=== PATIENT | female | born 1980 | race Caucasian/White ===

== ENCOUNTER 2016-08-17 19:22 | Emergency (ER) | payer OTHER ==
[~2016-08-17] VITALS: Ht 165.1 cm; Wt 46.6 kg
[~2016-08-17 19:22] MED LIST: CARI350T28 PO; METH10TA4 PO
[2016-08-17 19:29] VITALS: TEMP 36.9; Ht 165.1 cm; Wt 46.6 kg
[2016-08-17] MEDS ORDERED: ONDANSETRON INJ 2 MG/ML 2 ML VIAL IV STA (19:53)
[2016-08-17] MEDS ORDERED: SODIUM CHLORIDE 0.9% 1000ML 1,000 ML IV STA (19:53)
[2016-08-17] MEDS ORDERED: HYDROmorphone INJ 0.5 MG/0.5 ML SYR IV STA (19:53)
[2016-08-17] MEDS ORDERED: OMEP40CA PO (19:59)
[2016-08-17] MEDS ORDERED: ONDA4TAB46 PO (19:59)
[2016-08-17] MEDS ORDERED: DICYCLOMINE PO (19:59)
[2016-08-17] MEDS ORDERED: OPTIRAY 320 IV PRN (20:00)
[2016-08-17 20:15] LABS: HEMATOCRIT 38.4 % (37-47); MEAN CELL VOLUME 82.9 fL (80-100); MEAN CORPUSCULAR HEMOGLOBIN 27.9 pg (25-34); MEAN CORPUSCULAR HGB CONC 33.6 g/dl (32-36); MEAN PLATELET VOLUME 8.7 fL (7.4-10.4); PLATELET COUNT 319 K/uL (130-400); RED BLOOD COUNT 4.63 M/uL (4.2-5.4); WHITE BLOOD COUNT 5.88 K/uL (4.8-10.8)
[2016-08-17 20:31] LABS: BASO % 0.3 %; BASO ABS # 0.02 K/uL (0-0.2); COMPLETE YES; EOS % 0.7 %; LYMPH % 54.9 %; LYMPH ABS # 3.23 K/uL (1.2-3.4); MONO % 4.9 %; NEUT % 39.2 %
[2016-08-17 20:32] LABS: BUN/CREATININE RATIO 14.6 (10-20); CALCIUM 8.6 mg/dl (8.5-10.1); CREATININE 0.84 mg/dl (0.60-1.20); POTASSIUM 3.6 mmol/L (3.5-5.1)
[2016-08-17 22:00] LABS: MANUAL MICROSCOPIC REQUIRED? NO; REVIEW REQ? NO; URINE APPEARANCE CLOUDY (CLEAR); URINE BILIRUBIN NEG (NEG); URINE COLOR YELLOW; URINE EPITHELIAL CELL AUTO >30 /lpf (0-5); URINE NITRITE NEG (NEG); URINE PH 5.5 (4.5-7.5); URINE SPECIFIC GRAVITY 1.001 (1.000-1.030); UROBILINOGEN NEG (NEG); ZZUR CULT IF INDIC CLEAN CATCH YES
--- NOTE | 2016-08-17 22:55 | DIAGNOSTIC IMAGING REPORT ---
ABDOMEN AND PELVIS CT WITH IV AND ORAL CONTRAST CT DOSE: 276.36 mGy.cm HISTORY: Pain left abd pain TECHNIQUE: Multiaxial CT images of the abdomen and pelvis were performed following the use of intravenous and oral contrast. COMPARISON STUDY: 08/25/2015 FINDINGS: Lung bases are clear. Small meningioma posterior right hepatic lobe. Liver is otherwise uniform. Spleen is unremarkable. Kidneys enhance uniformly. There is a 1 cm cyst lower pole left kidney. There is no evidence for hydronephrosis. Small bowel pattern is nonobstructive. There are findings of mild generalized colonic distention. There is a suggestive of a nonobstructive colonic ileus. Bladder is midline. There are no contained calcifications. The appendix is Normal IMPRESSION: 1. Mild generalized colonic adynamic ileus. 2. No true obstructive changes. 3. Findings consistent with a prior gastric bypass procedure Electronically signed by: Aries Flores M.D. 08/17/2016 10:53 PM
[2016-08-17 23:15] VITALS: BP 122/73; PULSE 83; O2SAT 99
[2016-08-17] MEDS ORDERED: NORCO 5/325MG HOME PACK PO ONE (23:30)
--- NOTE | 2016-08-18 02:50 | EMERGENCY ROOM VISIT NOTE ---
History Report prepared by Judith: Dagoberto Rodney Under the Supervision of: Dr. Silvano Gonzalez M.D. First contact with patient: 19:43 Chief Complaint: ABDOMINAL PAIN Stated Complaint: SEVERE STOMACH PAIN History of Present Illness The patient is a 35 year old female who presents to the Emergency Room with complaints of intermittent abdominal pain beginning 3 months ago. She rates her pain as a 9/10 in severity. She states that her current episode began 13 hours ago, and has been constant. The patient has associated diarrhea and nausea. 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 She has a history of GERD, and IBS. The patient notes that her stress and anxiety have been very high over the past few months. Pt denies LOC, headache, fevers, chills, diaphoresis, visual changes, neck pain, chest pain, breathing difficulties, vomiting, back pain, melena, hematochezia, urinary symptoms, numbness, weakness, lymphadenopathy, rash, or other complaints. She notes that she experienced some vaginal bleeding in the past few months which is abnormal for her, but states that it was not correlated with her other symptoms. Source of History: patient Onset: 3 months ago Position: abdomen Timing: intermittent Associated Symptoms: + diarrhea, + nausea, No vomiting Review of Systems See HPI for pertinent positives and negatives. A total of ten systems were reviewed and were otherwise negative. Past Medical & Surgical Medical Problems: (1) Abnormal finding on EKG (2) Anxiety (3) Anxiety State Nos (4) Asthma (5) Asthma, Unspecified (6) Cervical strain (7) Chest pain (8) Dental caries (9) Dentalgia (10) Depression (11) Elevated LFTs (12) Esophageal Reflux (13) Hyperthyroidism (14) Pain due to dental caries (15) Pain due to dental caries (16) Pain, dental (17) Pain, dental (18) Rib contusion Family History Cancer FH: depression Heart disease Hypertension Social History Smoking Status: Current Every Day Smoker Alcohol Use: none Drug Use: none Marital Status: in relationship Housing Status: lives with family Occupation Status: employed Current/Historical Medications Scheduled Medroxyprogesterone Acetate (Medroxyprogesterone Aceta), 150 MG IM Q3 MONTHS Methylphenidate (Ritalin), 10 MG PO DAILY Omeprazole (Prilosec), 40 MG PO DAILY [Dicyclomine], 1 TAB PO DAILY Scheduled PRN Carisoprodol (Soma), 350 MG PO TID PRN for Muscle Spasm Ondansetron Hcl (Zofran), 4 MG PO Q8 PRN for Nausea Allergies Coded Allergies: Grass (Verified Allergy, Mild, SNEEZE AND ITCHY EYES, 08/17/16) Ketorolac Tromethamine (Verified Allergy, Unknown, asthma flare, 08/17/16) Nitrofurantoin (Verified Allergy, Unknown, VOMITING, 08/17/16) Penicillins (Verified Allergy, Unknown, RXN CHILD, 08/17/16) Physical Exam Vital Signs Date Time Temp Pulse Resp B/P Pulse Ox O2 Delivery O2 Flow Rate FiO2 08/17/16 23:15 83 16 122/73 99 Room Air 08/17/16 19:29 36.9 112 18 111/75 97 Room Air Physical Exam GENERAL: Awake, alert, well-appearing, in no distress HENT: Normocephalic, atraumatic. Oropharynx unremarkable. EYES: Normal conjunctiva. Sclera non-icteric. NECK: Supple. No nuchal rigidity. FROM. No JVD. RESPIRATORY: Clear to auscultation. CARDIAC: Regular rate, normal rhythm. Extremities warm and well perfused. Pulses equal. ABDOMEN: Soft, non-distended. Left sided tenderness to palpation. No rebound or guarding. No masses. RECTAL: Deferred. MUSCULOSKELETAL: Chest examination reveals no tenderness. The back is symmetrical on inspection without obvious abnormality. There is no CVA tenderness to palpation. No joint edema. LOWER EXTREMITIES: Calves are equal size bilaterally and non-tender. No edema. No discoloration. NEURO: Normal sensorium. No sensory or motor deficits noted. SKIN: No rash or jaundice noted. Medical Decision & Procedures ER Provider Diagnostic Interpretation: CT: Radiology results as stated below per my review and radiologist interpretation ABDOMEN AND PELVIS CT WITH IV AND ORAL CONTRAST FINDINGS: Lung bases are clear. Small meningioma posterior right hepatic lobe. Liver is otherwise uniform. Spleen is unremarkable. Kidneys enhance uniformly. There is a 1 cm cyst lower pole left kidney. There is no evidence for hydronephrosis. Small bowel pattern is nonobstructive. There are findings of mild generalized colonic distention. There is a suggestive of a nonobstructive colonic ileus. Bladder is midline. There are no contained calcifications. The appendix is Normal IMPRESSION: 1. Mild generalized colonic adynamic ileus. 2. No true obstructive changes. 3. Findings consistent with a prior gastric bypass procedure Electronically signed by: Aries Flores M.D. Laboratory Results 08/17/16 20:05 Red Blood Count 4.63, Mean Corpuscular Volume 82.9, Mean Corpuscular Hemoglobin 27.9, Mean Corpuscular Hemoglobin Concent 33.6, Mean Platelet Volume 8.7, Neutrophils (%) (Auto) 39.2, Lymphocytes (%) (Auto) 54.9, Monocytes (%) (Auto) 4.9, Eosinophils (%) (Auto) 0.7, Basophils (%) (Auto) 0.3, Neutrophils # (Auto) 2.30, Lymphocytes # (Auto) 3.23, Monocytes # (Auto) 0.29, Eosinophils # (Auto) 0.04, Basophils # (Auto) 0.02 08/17/16 20:05 Test 08/17/16 20:05 08/17/16 21:41 White Blood Count 5.88 K/uL (4.8-10.8) Red Blood Count 4.63 M/uL (4.2-5.4) Hemoglobin 12.9 g/dL (12.0-16.0) Hematocrit 38.4 % (37-47) Mean Corpuscular Volume 82.9 fL (80-100) Mean Corpuscular Hemoglobin 27.9 pg (25-34) Mean Corpuscular Hemoglobin Concent 33.6 g/dl (32-36) Platelet Count 319 K/uL (130-400) Mean Platelet Volume 8.7 fL (7.4-10.4) Neutrophils (%) (Auto) 39.2 % Lymphocytes (%) (Auto) 54.9 % Monocytes (%) (Auto) 4.9 % Eosinophils (%) (Auto) 0.7 % Basophils (%) (Auto) 0.3 % Neutrophils # (Auto) 2.30 K/uL (1.4-6.5) Lymphocytes # (Auto) 3.23 K/uL (1.2-3.4) Monocytes # (Auto) 0.29 K/uL (0.11-0.59) Eosinophils # (Auto) 0.04 K/uL (0-0.5) Basophils # (Auto) 0.02 K/uL (0-0.2) RDW Standard Deviation 44.6 fL (36.4-46.3) RDW Coefficient of Variation 14.6 % (11.5-14.5) Immature Granulocyte % (Auto) 0.0 % Immature Granulocyte # (Auto) 0.00 K/uL (0.00-0.02) Anion Gap 9.0 mmol/L (3-11) Est Creatinine Clear Calc Drug Dose 70.1 ml/min Estimated GFR () 105.8 Estimated GFR (Non- 91.3 BUN/Creatinine Ratio 14.6 (10-20) Calcium Level 8.6 mg/dl (8.5-10.1) Total Bilirubin 0.9 mg/dl (0.2-1) Direct Bilirubin 0.2 mg/dl (0-0.2) Aspartate Amino Transf (AST/SGOT) 19 U/L (15-37) Alanine Aminotransferase (ALT/SGPT) 25 U/L (12-78) Alkaline Phosphatase 104 U/L (45-117) Total Protein 7.5 gm/dl (6.4-8.2) Albumin 4.2 gm/dl (3.4-5.0) Lipase 233 U/L (73-393) Urine Color YELLOW Urine Appearance CLOUDY (CLEAR) Urine pH 5.5 (4.5-7.5) Urine Specific [place] 1.001 (1.000-1.030) Urine Protein NEG (NEG) Urine Glucose (UA) NEG (NEG) Urine Ketones NEG (NEG) Urine Occult Blood NEG (NEG) Urine Nitrite NEG (NEG) Urine Bilirubin NEG (NEG) Urine Urobilinogen NEG (NEG) Urine Leukocyte Esterase SMALL (NEG) Urine WBC (Auto) 10-30 /hpf (0-5) Urine RBC (Auto) 0-4 /hpf (0-4) Urine Hyaline Casts (Auto) 0 /lpf (0-5) Urine Epithelial Cells (Auto) >30 /lpf (0-5) Urine Bacteria (Auto) 1+ (NEG) Urine Test NEG (NEG) Laboratory results reviewed by me Medications Administered Medications (Trade) Dose Ordered Sig/Concepcion Route Start Time Stop Time Status Last Admin Dose Admin Sodium Chloride (Nss 1000ml) 1,000 ml @ 999 mls/hr Q1H1M STAT IV 08/17/16 19:53 08/17/16 20:53 DC 08/17/16 20:20 999 MLS/HR Ondansetron HCl (Zofran Inj) 4 mg NOW STAT IV 08/17/16 19:53 08/17/16 19:54 DC 08/17/16 20:19 4 MG Hydromorphone HCl (Dilaudid Inj) 0.5 mg NOW STAT IV 08/17/16 19:53 08/17/16 19:54 DC 08/17/16 20:20 0.5 MG Acetaminophen/ Hydrocodone Bitart ([place] 5/325mg Home Pack) 1 homepack UD ONCE PO 08/17/16 23:30 08/17/16 23:31 DC 08/17/16 23:31 1 HOMEPACK ED Course 1945: The patient was evaluated in room A4B. A complete history and physical exam was performed. 1952: Ordered Dilaudid Inj 0.5 mg IV, Zofran Inj 4 mg IV, NSS 1000 mL @ 999 mL/ hr IV. 2329: Ordered [place] 5/325 mg home pack PO. I reevaluated the patient. Discussed results and discharge instructions: she verbalized understanding and agreement. The patient is ready for discharge. Medical Decision Triage Nursing notes reviewed. The patient's presentation and history were concerning for abdominal pain. Etiologies such as appendicitis, diverticulitis, obstruction, inflammatory bowel disease, renal colic, PUD, biliary pathology, pancreatitis, mesenteric ischemia, aortic pathology, infections, genitourinary, UTI, perforated viscus, as well as others were entertained. The patient presented to emergency department with left upper quadrant abdominal pain. She has had no lower abdominal pain. She has had this for 3 months. She has been tried on Bentyl as well as omeprazole. 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 She does not note for full details. The patient had an unremarkable CBC, chemical panel, LFTs and lipase. Urinalysis and test are unremarkable. There is a lot of epithelial cells in the urine and she has had no urinary symptoms. The patient was given normal saline, Zofran, and Dilaudid. She was feeling better with this. The patient underwent CT imaging and this did show her postsurgical changes as well as a mild colonic ileus but no signs of obstruction or infection. The patient has had her symptoms for quite some time. She denies any pelvic symptoms. She will need further evaluation and management as an outpatient. The patient desired discharge. She should have an endoscopy performed given her prior history gastric bypass. She is not using any NSAIDs. The patient was given a home pack of hydrocodone if she needs anything for tonight. She will contact her regular physician in the morning. By the evaluation outlined above other emergent etiologies such as those listed in the differential, as well as others, were deemed relatively unlikely. The exact etiology of her pain is not obvious at this time. The patient was informed about the findings as listed above. All questions were answered and she was pleased with the treatment. Return instructions were outlined and the patient was discharged in stable condition. The patient was referred to her PCP for follow-up tomorrow for a recheck of the current condition. The chart was completed utilizing [employer] Speech voice recognition software. Grammatical errors, random word insertions, pronoun errors, and incomplete sentences are an occasional consequence of this system due to software limitations, ambient noise, and hardware issues. Any formal questions or concerns about the content, text, or information contained within the body of this dictation should be directly addressed to the physician for clarification. Impression Primary Impression: LUQ abdominal pain Scribe Attestation The scribe's documentation has been prepared under my direction and personally reviewed by me in its entirety. I confirm that the note above accurately reflects all work, treatment, procedures, and medical decision making performed by me. Departure Information Dispostion Home / Self-Care Referrals No Doctor, Assigned (PCP) Forms Call Back Authorization, HOME CARE DOCUMENTATION FORM, IMPORTANT VISIT INFORMATION, [facility] Additional Instructions ABDOMINAL PAIN INSTRUCTIONS: DO NOT drive, drink alcohol, operate machinery, or perform dangerous activities today. You were given medications in the ER that can affect your ability to safely function or operate a vehicle. Hydrocodone/acetaminophen 5/325mg: Take 1-2 pills every 6 hours as needed for pain. Avoid additional Acetaminophen/Tylenol, alcohol, operating machinery or dangerous equipment, working on ladders or roofs, DRIVING, or situations where being under the influence may be dangerous. It is recommended to use a stool softener such as Colace, 100mg twice daily while taking this medication to avoid constipation. Rest and drink plenty of fluids as tolerated. Slow sips of water or sports drinks are recommended instead of large amounts all at once. Continue current medications. Once your stomach is settled start with a clear liquid diet (jello, soup broth, etc.) and then advance as tolerated. You should avoid full, heavy meals for about 24 hrs from the time your symptoms resolved. Return to the ER immediately for worsening or persistent abdominal pain, vomiting, fevers, chest pains, difficulty breathing, black or bloody stools, worsening of your condition, or as needed. Follow up with your primary physician tomorrow for a recheck of your current condition.
--- NOTE | 2016-08-19 13:37 | Pharmacy Progress Note ---
ED Pharmacist Culture FollowUp Date of Service: Aug 19, 2016. Patient with Gardnerella growing from the urine culture. Patient denied urinary symptoms. Urinalysis was unremarkable and had many epithelial cells. Gardnerella is likely a vaginal contaminant - no change required.
== END 2016-08-17 23:38 | disposition home or self-care (01) ==
LOC: C.EDB 19:25 → C.EDA 23:38
DX: R10.12 Left upper quadrant pain (principal); R19.7 Diarrhea, unspecified; R11.0 Nausea; J45.909 Unspecified asthma, uncomplicated; K21.9 Gastro-esophageal reflux disease without esophagitis; Z98.84 Bariatric surgery status; F17.200 Nicotine dependence, unspecified, uncomplicated; Z79.899 Other long term (current) drug therapy

== ENCOUNTER 2016-09-10 23:24 | Emergency (ER) | payer OTHER ==
[~2016-09-10] VITALS: Ht 165.1 cm; Wt 46.7 kg
[~2016-09-10 23:24] MED LIST changes: +DICYCLOMINE PO; +OMEP40CA PO; +ONDA4TAB46 PO
[2016-09-10 23:37] VITALS: TEMP 37.2; Ht 165.1 cm; Wt 46.7 kg
[2016-09-11] MEDS ORDERED: ONDANSETRON INJ 2 MG/ML 2 ML VIAL IV STA (00:10)
[2016-09-11] MEDS ORDERED: SODIUM CHLORIDE 0.9% 1000ML 1,000 ML IV STA (00:10)
[2016-09-11] MEDS ORDERED: MoRPHine SULFATE 4 MG/ML 1 ML CARP\\VIAL IV STA (00:10)
[2016-09-11 00:30] LABS: BASO % 0.2 %; BASO ABS # 0.02 K/uL (0-0.2); COMPLETE YES; EOS % 0.2 %; HEMATOCRIT 40.1 % (37-47); IG% 0.2 %; LYMPH % 35.5 %; LYMPH ABS # 3.45 K/uL (1.2-3.4); MEAN CELL VOLUME 82.9 fL (80-100); MEAN CORPUSCULAR HEMOGLOBIN 28.3 pg (25-34); MEAN CORPUSCULAR HGB CONC 34.2 g/dl (32-36); MEAN PLATELET VOLUME 9.4 fL (7.4-10.4); MONO % 3.6 %; NEUT % 60.3 %; PLATELET COUNT 365 K/uL (130-400); RED BLOOD COUNT 4.84 M/uL (4.2-5.4); WHITE BLOOD COUNT 9.72 K/uL (4.8-10.8)
[2016-09-11 00:49] LABS: BUN/CREATININE RATIO 12.2 (10-20); CALCIUM 9.6 mg/dl (8.5-10.1); CREATININE 0.83 mg/dl (0.60-1.20); MAGNESIUM 2.3 mg/dl (1.8-2.4); POTASSIUM 3.2 mmol/L (3.5-5.1)
[2016-09-11] MEDS ORDERED: DICY20TA10 PO (00:52)
--- NOTE | 2016-09-11 00:55 | EMERGENCY ROOM VISIT NOTE ---
History Report prepared by Sharadibmaddie: Brea Ansari Under the Supervision of: Dr. Gretel Ludwig M.D. First contact with patient: 23:45 Chief Complaint: ABDOMINAL PAIN Stated Complaint: SEVERE STOMACH PAIN History of Present Illness The patient is a 36 year old female who presents to the Emergency Room with complaints of increased left sided abdominal pain tonight. She also complains of nausea. The patient states that she has been having GI problems for the past 5 months and was scheduled for 2 EGDs, but had to cancel them. She has one scheduled for September. Last week, the patient was having some issues with constipation but she has been having diarrhea over the past few days. There has not been any blood in her stool. Tonight, her pain increased to the point where she cannot get comfortable. She does have some relief when she brings her knees towards her chest. She is currently on Omeprazole, Dicyclomine, and MiraLAX. Denies vomiting or other complaints. 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 The patient was seen in the emergency room on August 17 for similar symptoms. Source of History: patient Onset: tonight Position: abdomen (left) Timing: worsening Modifying Factors (Relieving): other (knees towards chest) Associated Symptoms: + diarrhea, + nausea, No vomiting Review of Systems See HPI for pertinent positives & negatives. A total of 10 systems reviewed and were otherwise negative. Past Medical & Surgical Medical Problems: (1) Abnormal finding on EKG (2) Anxiety (3) Anxiety State Nos (4) Asthma (5) Asthma, Unspecified (6) Cervical strain (7) Chest pain (8) Dental caries (9) Dentalgia (10) Depression (11) Elevated LFTs (12) Esophageal Reflux (13) Hyperthyroidism (14) Pain due to dental caries (15) Pain due to dental caries (16) Pain, dental (17) Pain, dental (18) Rib contusion Family History Cancer FH: depression Heart disease Hypertension Social History Smoking Status: Current Every Day Smoker Alcohol Use: none Drug Use: none Marital Status: in relationship Housing Status: lives with family Occupation Status: employed Current/Historical Medications Scheduled Dicyclomine Hcl (Dicyclomine Hcl), 20 MG PO QID Medroxyprogesterone Acetate (Medroxyprogesterone Aceta), 150 MG IM Q3 MONTHS Methylphenidate (Ritalin), 10 MG PO DAILY Omeprazole (Prilosec), 40 MG PO DAILY Scheduled PRN Carisoprodol (Soma), 350 MG PO TID PRN for Muscle Spasm Ondansetron Hcl (Zofran), 4 MG PO Q8 PRN for Nausea Allergies Coded Allergies: Grass (Verified Allergy, Mild, SNEEZE AND ITCHY EYES, 08/17/16) Ketorolac Tromethamine (Verified Allergy, Unknown, asthma flare, 08/17/16) Nitrofurantoin (Verified Allergy, Unknown, VOMITING, 08/17/16) Penicillins (Verified Allergy, Unknown, RXN CHILD, 08/17/16) Physical Exam Vital Signs Date Time Temp Pulse Resp B/P Pulse Ox O2 Delivery O2 Flow Rate FiO2 09/11/16 02:08 74 18 114/72 97 09/11/16 01:26 74 20 121/85 97 Room Air 09/11/16 00:30 92 09/10/16 23:37 37.2 116 18 125/73 100 Room Air Physical Exam Vital signs reviewed. General: Thin, generally well-appearing 36 year old female, in no significant distress. HEENT: No scleral icterus, PERRLA, neck supple. Atraumatic. Cardiovascular: Regular rate and rhythm, no extra sounds. Pulmonary: Clear to auscultation bilaterally, normal work of breathing. Abdomen: Soft, nontender, nondistended, positive bowel sounds. Musculoskeletal: Atraumatic, no peripheral edema. Neurologic: Patient awake alert and oriented x 3, full strength in all 4 extremities. Cranial nerves 2 through 12 grossly intact. Skin: Warm, dry, no rash Medical Decision & Procedures Laboratory Results 09/10/16 23:50 Red Blood Count 4.84, Mean Corpuscular Volume 82.9, Mean Corpuscular Hemoglobin 28.3, Mean Corpuscular Hemoglobin Concent 34.2, Mean Platelet Volume 9.4, Neutrophils (%) (Auto) 60.3, Lymphocytes (%) (Auto) 35.5, Monocytes (%) (Auto) 3.6, Eosinophils (%) (Auto) 0.2, Basophils (%) (Auto) 0.2, Neutrophils # (Auto) 5.86, Lymphocytes # (Auto) 3.45, Monocytes # (Auto) 0.35, Eosinophils # (Auto) 0.02, Basophils # (Auto) 0.02 09/10/16 23:50 Test 09/10/16 23:50 White Blood Count 9.72 K/uL (4.8-10.8) Red Blood Count 4.84 M/uL (4.2-5.4) Hemoglobin 13.7 g/dL (12.0-16.0) Hematocrit 40.1 % (37-47) Mean Corpuscular Volume 82.9 fL (80-100) Mean Corpuscular Hemoglobin 28.3 pg (25-34) Mean Corpuscular Hemoglobin Concent 34.2 g/dl (32-36) Platelet Count 365 K/uL (130-400) Mean Platelet Volume 9.4 fL (7.4-10.4) Neutrophils (%) (Auto) 60.3 % Lymphocytes (%) (Auto) 35.5 % Monocytes (%) (Auto) 3.6 % Eosinophils (%) (Auto) 0.2 % Basophils (%) (Auto) 0.2 % Neutrophils # (Auto) 5.86 K/uL (1.4-6.5) Lymphocytes # (Auto) 3.45 K/uL (1.2-3.4) Monocytes # (Auto) 0.35 K/uL (0.11-0.59) Eosinophils # (Auto) 0.02 K/uL (0-0.5) Basophils # (Auto) 0.02 K/uL (0-0.2) RDW Standard Deviation 40.2 fL (36.4-46.3) RDW Coefficient of Variation 13.3 % (11.5-14.5) Immature Granulocyte % (Auto) 0.2 % Immature Granulocyte # (Auto) 0.02 K/uL (0.00-0.02) Anion Gap 12.0 mmol/L (3-11) Est Creatinine Clear Calc Drug Dose 70.4 ml/min Estimated GFR () 106.6 Estimated GFR (Non- 92.0 BUN/Creatinine Ratio 12.2 (10-20) Calcium Level 9.6 mg/dl (8.5-10.1) Magnesium Level 2.3 mg/dl (1.8-2.4) Total Bilirubin 0.9 mg/dl (0.2-1) Direct Bilirubin 0.2 mg/dl (0-0.2) Aspartate Amino Transf (AST/SGOT) 13 U/L (15-37) Alanine Aminotransferase (ALT/SGPT) 19 U/L (12-78) Alkaline Phosphatase 85 U/L (45-117) Total Protein 8.3 gm/dl (6.4-8.2) Albumin 4.9 gm/dl (3.4-5.0) Lipase 327 U/L (73-393) Human Chorionic Gonadotropin, Qual NEG (NEG) Laboratory results per my review. Medications Administered Medications (Trade) Dose Ordered Sig/Concepcion Route Start Time Stop Time Status Last Admin Dose Admin Sodium Chloride (Nss 1000ml) 1,000 ml @ 999 mls/hr Q1H1M STAT IV 09/11/16 00:10 09/11/16 01:10 DC 09/11/16 00:30 999 MLS/HR Morphine Sulfate (MoRPHine SULFATE INJ) 4 mg NOW STAT IV 09/11/16 00:10 09/11/16 00:21 DC 09/11/16 00:30 4 MG Ondansetron HCl (Zofran Inj) 4 mg NOW STAT IV 09/11/16 00:10 09/11/16 00:21 DC 09/11/16 00:30 4 MG ED Course 2358: Past medical records reviewed. The patient was evaluated in room B6. A complete history and physical examination was performed. 0010: Ordered Zofran Inj 4 mg IV, Morphine Sulfate 4 mg IV, NSS 1000 ml @ 999 mls/hr IV. 0200: The patient was feeling better and verbalized agreement of the treatment plan. She was discharged home. Medical Decision Differential diagnosis: Etiologies such as appendicitis, diverticulitis, PUD, biliary pathology, UTI, pancreatitis, obstruction, mesenteric ischemia, aortic pathology, infections, inflammatory bowel disease, renal colic, as well as others were entertained. This pt was evaluated and appeared to be in no distress. IV access was obtained and lab work was drawn. Pt was hydrated with NSS, given IV morphine and zofran. She is feeling much improved. Lab work is unrevealing. Pt is scheduled for f/u with GI for scope in the next few weeks. She was informed of findings and was happy with plan for follow up. She will return to the ED for worsening of symptoms or any medical concerns. Impression Primary Impression: Recurrent left lower quadrant abdominal pain Scribe Attestation The scribe's documentation has been prepared under my direction and personally reviewed by me in its entirety. I confirm that the note above accurately reflects all work, treatment, procedures, and medical decision making performed by me. Departure Information Dispostion Home / Self-Care Referrals Diane Jason D.O. (PCP) Patient Instructions [facility] Additional Instructions Diagnosis: Left lower quadrant abdominal pain Follow-up with your professor of environmental engineering as scheduled for endoscopy. Do not drive after receiving morphine for at least 6 hours. Return to the emergency department for worsening of symptoms or any medical concerns.
[2016-09-11 00:59] LABS: PREG INTERNAL NEGATIVE QC NEG CLEAR BACKGROUND; PREG INTERNAL POSITIVE QC POS CONTROL LINE
[2016-09-11 02:08] VITALS: BP 114/72; PULSE 74; O2SAT 97
== END 2016-09-11 02:08 | disposition home or self-care (01) ==
LOC: C.EDB 23:25 → C.EDA 09-11 02:08
DX: R10.32 Left lower quadrant pain (principal); R11.0 Nausea; Z82.49 Family history of ischemic heart disease and other diseases of the circulatory system; Z83.3 Family history of diabetes mellitus; J45.909 Unspecified asthma, uncomplicated; K21.9 Gastro-esophageal reflux disease without esophagitis

== ENCOUNTER 2016-09-22 15:28 | Emergency (ER) | payer OTHER ==
[~2016-09-22] VITALS: Ht 165.1 cm; Wt 47.4 kg
[~2016-09-22 15:28] MED LIST changes: +DICY20TA10 PO; -DICYCLOMINE PO
[2016-09-22 16:04] VITALS: BP 135/88; PULSE 99; TEMP 37.2; O2SAT 100; Ht 165.1 cm; Wt 47.4 kg
== END 2016-09-22 16:10 | disposition left against medical advice (07) ==
LOC: C.EDB 15:30
DX: R10.9 Unspecified abdominal pain (principal)

== ENCOUNTER 2016-11-06 15:53 | Emergency (ER) | payer OTHER ==
[~2016-11-06] VITALS: Ht 165.1 cm; Wt 48.0 kg
[2016-11-06 15:56] VITALS: TEMP 36.5; Ht 165.1 cm; Wt 48.0 kg
[2016-11-06] MEDS ORDERED: OMEP40CA41 PO (16:25)
[2016-11-06] MEDS ORDERED: TRAM-453 PO (16:29)
[2016-11-06] MEDS ORDERED: CLIN300C2 PO (16:29)
--- NOTE | 2016-11-06 16:31 | EMERGENCY ROOM VISIT NOTE ---
ED Visit Note First contact with patient: 16:00 CHIEF COMPLAINT: Toothache HISTORY OF PRESENT ILLNESS: This 36-year-old female patient presented to the emergency department ambulatory with a progressive toothache for the past 3 weeks. The patient believes it is coming from her left lower molars and one of her right upper teeth. The pain is now steady and severe and radiates to the face. The patient has a dentist appointment set up in 4 days. They rate their pain a 7/10 and the ibuprofen and Tylenol they have been taking has not relieved the pain. Denies facial swelling or fever. The patient denies any discharge from the mouth. REVIEW OF SYSTEMS: A 6 system review of systems was completed with positives and pertinent negatives listed in the HPI. ALLERGIES: Grass, Toradol, Nitrofurantoin, Penicillins MEDICATIONS: Soma, dicyclomine, Depo-Provera, Ritalin, Prilosec, Zofran PMH: Asthma SOCIAL HISTORY: The patient lives locally with her fianc. She is a smoker and denies alcohol use. PHYSICAL EXAM: Vitals are noted on the nurse's note and reviewed by myself. Vital signs stable. Temperature 36.5C orally. GENERAL: This is a 36-year-old female, in no acute distress, nondiaphoretic, well-developed well-nourished. Mouth: The left lower molars are carious and one of the molars is slightly broken. The gum is slightly swollen and tender around it, without any discharge or signs of an abscess. The remainder of the pharynx and tonsils are without erythema, edema, or exudate. The airway is patent. There is no facial swelling, cervical or submandibular lymphadenopathy. The patient appears uncomfortable and in pain. The patient has overall poor dental hygiene. EARS: External auditory canals clear, tympanic membranes pearly morrell without erythema or effusion bilaterally. ED COURSE: The patient was evaluated as above. Previous records were reviewed. The patient does note that she has a dentist appointment set up in 4 days. I do think it is reasonable to provide the patient with an antibiotic and a short course of pain medication. The [place] prescription drug monitoring program was queried and no red flags were identified. The patient was given prescriptions for clindamycin and tramadol and discharged home in good condition. I was informed by the nurse that the patient reported she had an allergy to tramadol as well. I had initially asked the patient what her allergies were and she listed Toradol, Macrobid and penicillins. I did approach the patient and she reported that tramadol apparently flared up her asthma. The patient was then given a home pack of Tylenol with codeine and no further prescriptions. DIAGNOSIS: Odontalgia Problem List Medical Problems: (1) Abnormal finding on EKG Status: Resolved (2) Anxiety Status: Chronic (3) Anxiety State Nos Status: Chronic (4) Asthma Status: Chronic (5) Asthma, Unspecified Status: Chronic (6) Cervical strain Status: Resolved (7) Chest pain Status: Resolved (8) Dental caries Status: Resolved (9) Dentalgia Status: Resolved (10) Depression Status: Chronic (11) Elevated LFTs Status: Resolved (12) Esophageal Reflux Status: Chronic (13) Hyperthyroidism Status: Chronic (14) Pain due to dental caries Status: Resolved (15) Pain due to dental caries Status: Chronic (16) Pain, dental Status: Resolved (17) Pain, dental Status: Resolved (18) Rib contusion Status: Resolved Current/Historical Medications Scheduled Clindamycin Hcl (Cleocin), 300 MG PO TID Medroxyprogesterone Acetate (Medroxyprogesterone Aceta), 150 MG IM Q3 MONTHS Omeprazole (Prilosec), 40 MG PO DAILY Tramadol Hcl (Ultram), 50 MG PO Q4H Allergies Coded Allergies: Grass (Verified Allergy, Mild, SNEEZE AND ITCHY EYES, 08/17/16) Ketorolac Tromethamine (Verified Allergy, Unknown, asthma flare, 08/17/16) Nitrofurantoin (Verified Allergy, Unknown, VOMITING, 08/17/16) Penicillins (Verified Allergy, Unknown, RXN CHILD, 08/17/16) Vital Signs Date Time Temp Pulse Resp B/P Pulse Ox O2 Delivery O2 Flow Rate FiO2 11/06/16 15:56 36.5 96 16 112/73 100 Room Air Departure Information Impression Primary Impression: Dentalgia Dispostion Home / Self-Care Condition GOOD Prescriptions Tramadol Hcl (ULTRAM) 50 Mg Tab 50 MG PO Q4H for Pain, #12 TAB For Initial Treatment Prov: Niki Tobin PA-C 11/06/16 Clindamycin Hcl (CLEOCIN) 300 Mg Cap 300 MG PO TID for 7 Days, #21 CAP Prov: Niki Tobin PA-C 11/06/16 Referrals No Doctor, Assigned (PCP) Patient Instructions My [facility] Additional Instructions You have been treated in the Emergency Department for Dental Pain. You have been prescribed Tramadol to be used for pain control. You cannot drive or consume alcohol while on this medicine. This medicine should only be used for pain that cannot be controlled with [id number] pain medicines. You were prescribed Clindamycin to be taken three times daily. This is an antibiotic. All antibiotics have the potential to cause diarrhea. Stop this medication and contact a medical provider if you were to develop any significant adverse side effects including: wheezing, shortness of breath, passing out, vomiting, or a diffuse rash. Always take antibiotics as directed and COMPLETE the ENTIRE course regardless of the improvement of your symptoms. For pain control, you can use the following [id number] medicines (if >12 yo): - Regular strength (325mg/tab) Tylenol (acetaminophen) 2 tabs every 4-6 hours as needed. Do not exceed 12 tablets in a 24 hour period. Avoid taking more than 4 grams (4000 mg) of Tylenol per day. This includes any other sources of acetaminophen you may take on a regular basis. - Regular strength (200 mg/tab) Advil (ibuprofen) 1-2 tabs every 4-6 hours as needed. Do not exceed a dose of 3200 mg per day. Refrain from smoking cigarettes or using chewing tobacco until you have been evaluated by your dentist. Keeping beverages lukewarm and consuming soft foods can decrease your pain. Warm compresses over the affected area may offer some relief. You MUST seek evaluation of your dental pain by a dentist following your visit to the Emergency Department. The Emergency Department is not capable of treating dental issues long-term. You should call your dentist as soon as possible to make an appointment for evaluation of your dental pain. Return to the emergency department if you develop the following symptoms despite treatment course outlined above: fever, intractable pain, increased redness, swelling, or purulent discharge.
[2016-11-06 16:51] VITALS: BP 101/58; PULSE 84; O2SAT 100
[2016-11-06] MEDS ORDERED: TYLENOL #3 HOME PACK PO ONE (17:00)
== END 2016-11-06 17:02 | disposition home or self-care (01) ==
LOC: C.EDB 15:54 → C.EDD 17:02
DX: K08.89 Other specified disorders of teeth and supporting structures (principal); J45.909 Unspecified asthma, uncomplicated; F17.200 Nicotine dependence, unspecified, uncomplicated; K21.9 Gastro-esophageal reflux disease without esophagitis; Z88.0 Allergy status to penicillin

== ENCOUNTER 2016-11-25 13:44 | Emergency (ER) | payer OTHER ==
[~2016-11-25] VITALS: Ht 165.1 cm; Wt 47.9 kg
[~2016-11-25 13:44] MED LIST changes: -CARI350T28 PO; -DICY20TA10 PO; -METH10TA4 PO; -OMEP40CA PO; +OMEP40CA41 PO; -ONDA4TAB46 PO
[2016-11-25 13:48] VITALS: BP 119/84; PULSE 119; TEMP 36.4; O2SAT 99; Ht 165.1 cm; Wt 47.9 kg
--- NOTE | 2016-11-25 14:12 | EMERGENCY ROOM VISIT NOTE ---
History First contact with patient: 13:56 Chief Complaint: MEDICATION REFILL REQUEST Stated Complaint: NEEDS AN RX FOR PRIOR MEDICATION, REFERRED TO ER History of Present Illness The patient is a 36 year old female who presents to the Emergency Room via private vehicle with complaints of "need a prescription for prior medication, referred to ER". Patient states that she is here to have a prescription refilled of her Ritalin. She states that she was following with [facility] for the past 3 years, and had missed several appointments therefore has been discharged from the practice. She states that she now feels as though she is becoming increasingly anxious, as this medication help with this. She states that she has an appointment on the of this month with [facility] [place] and when she called their office they said they would not be able to refill her prescription without seeing her in person. They've informed her to go to the ER. Review of Systems A complete 6-point Review of Systems was discussed with the patient, with pertinent positives and negatives listed in the History of Present Illness. All remaining Review of Systems questions can be considered negative unless otherwise specified. Past Medical/Surgical History Medical Problems: (1) Abnormal finding on EKG (2) Anxiety (3) Anxiety State Nos (4) Asthma (5) Asthma, Unspecified (6) Cervical strain (7) Chest pain (8) Dental caries (9) Dentalgia (10) Depression (11) Elevated LFTs (12) Esophageal Reflux (13) Hyperthyroidism (14) Pain due to dental caries (15) Pain due to dental caries (16) Pain, dental (17) Pain, dental (18) Rib contusion Family History Cancer FH: depression Heart disease Hypertension Social History Smoking Status: Current Every Day Smoker Alcohol Use: none Drug Use: none Marital Status: in relationship Housing Status: lives with family Occupation Status: employed Current/Historical Medications Scheduled Medroxyprogesterone Acetate (Medroxyprogesterone Aceta), 150 MG IM Q3 MONTHS Omeprazole (Prilosec), 40 MG PO DAILY Allergies Coded Allergies: Grass (Verified Allergy, Mild, SNEEZE AND ITCHY EYES, 08/17/16) Ketorolac Tromethamine (Verified Allergy, Unknown, asthma flare, 08/17/16) Nitrofurantoin (Verified Allergy, Unknown, VOMITING, 08/17/16) Penicillins (Verified Allergy, Unknown, RXN CHILD, 08/17/16) Physical Exam Vital Signs Date Time Temp Pulse Resp B/P Pulse Ox O2 Delivery O2 Flow Rate FiO2 11/25/16 13:48 36.4 119 18 119/84 99 Room Air Physical Exam VITAL SIGNS - Vital signs and nursing notes were reviewed. GENERAL -36-year-old female appearing her stated age who is in no acute distress. Communicates well with provider and answers questions appropriately. SKIN - Without rashes. No petechial rashes. LUNGS - Chest wall symmetric without accessory muscle use, intercostals retractions, or central cyanosis. Normal vesicular breath sounds CTA B/L. No wheezes, rales, or rhonchi appreciated. CARDIAC - RRR with S1/S2. No murmur, rubs, or gallops appreciated. Medical Decision & Procedures Medical Decision Patient was seen and evaluated as above. Patient presented for a refill of her medication. She states this is the only reason for her visit. I did review her in the [place] drug monitoring system and it does appear that she does indeed have a past prescription for this. I do believe that all of the stay controlled medication, but a 7 day supply is warranted. She does seem to be very truthful. The prescription was signed by my attending, and was provided to the patient. The patient was educated upon importance of follow-up, and also that the ER is not capable of providing prescriptions long-term. She was educated upon worrisome symptoms which to return, had questions prior to discharge and was discharged home in good condition. The prescription was written for Ritalin 20 mg tablets, 1 tablet by mouth daily , dispense 7 tabs. In evaluation and treatment of this patient the following differential diagnoses were entertained: Medication refill request. [place] Drug Monitoring Program Search Results: patient reviewed within database, see additional documentation Impression Primary Impression: Encounter for medication refill Departure Information Dispostion Home / Self-Care Condition GOOD Referrals No Doctor, Assigned (PCP) Patient Instructions My [facility] Additional Instructions You have been seen in the emergency department for an emergent medication refill request. We are able to refill your Ritalin for 7 days. Please keep your established appointment on the 17 of this month. Emergency department is unable to provide long-term refill medication request.. Please return to emergency department with any new/concerning symptoms. Thank you for your time.
== END 2016-11-25 14:21 | disposition home or self-care (01) ==
LOC: C.EDB 13:47 → C.EDD 14:21
DX: Z02.79 Encounter for issue of other medical certificate (principal); F41.9 Anxiety disorder, unspecified; F32.9 Major depressive disorder, single episode, unspecified; K21.9 Gastro-esophageal reflux disease without esophagitis; E05.90 Thyrotoxicosis, unspecified without thyrotoxic crisis or storm; J45.909 Unspecified asthma, uncomplicated; Z87.828 Personal history of other (healed) physical injury and trauma; F17.200 Nicotine dependence, unspecified, uncomplicated; Z79.899 Other long term (current) drug therapy; Z88.0 Allergy status to penicillin; Z88.8 Allergy status to other drugs, medicaments and biological substances; Z91.09 Other allergy status, other than to drugs and biological substances; Z80.9 Family history of malignant neoplasm, unspecified; Z82.49 Family history of ischemic heart disease and other diseases of the circulatory system; Z81.8 Family history of other mental and behavioral disorders

== ENCOUNTER 2016-12-04 21:49 | Emergency (ER) | payer OTHER ==
[~2016-12-04] VITALS: Ht 165.1 cm; Wt 48.4 kg
[2016-12-04 21:59] VITALS: TEMP 36.9; Ht 165.1 cm; Wt 48.4 kg
[2016-12-04] MEDS ORDERED: ONDANSETRON INJ 2 MG/ML 2 ML VIAL IV STA (22:24)
[2016-12-04] MEDS ORDERED: SODIUM CHLORIDE 0.9% 1000ML 1,000 ML IV STA (22:24)
[2016-12-04] MEDS ORDERED: MoRPHine SULFATE 4 MG/ML 1 ML CARP\\VIAL IV STA (22:24)
[2016-12-04 22:56] LABS: BASO % 0.2 %; BASO ABS # 0.01 K/uL (0-0.2); COMPLETE YES; HEMATOCRIT 36.3 % (37-47); IG% 0.2 %; LYMPH % 48.8 %; LYMPH ABS # 2.94 K/uL (1.2-3.4); MEAN CELL VOLUME 86.6 fL (80-100); MEAN CORPUSCULAR HEMOGLOBIN 28.4 pg (25-34); MEAN CORPUSCULAR HGB CONC 32.8 g/dl (32-36); MEAN PLATELET VOLUME 8.5 fL (7.4-10.4); MONO % 5.5 %; NEUT % 44.3 %; PLATELET COUNT 348 K/uL (130-400); RED BLOOD COUNT 4.19 M/uL (4.2-5.4); WHITE BLOOD COUNT 6.03 K/uL (4.8-10.8)
[2016-12-04 23:12] LABS: BUN/CREATININE RATIO 13.1 (10-20); CALCIUM 8.6 mg/dl (8.5-10.1); CREATININE 0.65 mg/dl (0.60-1.20); POTASSIUM 3.2 mmol/L (3.5-5.1)
[2016-12-04 23:52] LABS: MANUAL MICROSCOPIC REQUIRED? YES; REVIEW REQ? NO; URINE COLOR ORANGE
[2016-12-04 23:54] LABS: SULFASALICYLIC ACID NEG (NEG); URINE APPEARANCE SLIGHTLY CLOUDY (CLEAR)
[2016-12-04 23:57] LABS: URINE BACTERIA 3+ (NEG); URINE WBC >30 /hpf (0-5); ZZUR CULT IF INDIC CLEAN CATCH YES
[2016-12-05] MEDS ORDERED: SEPTRA DS HOME PACK 1 EA VIAL PO ONE (00:15)
[2016-12-05] MEDS ORDERED: NORCO 5/325MG HOME PACK PO ONE (00:15)
[2016-12-05] MEDS ORDERED: SULF800T23 PO (00:16)
--- NOTE | 2016-12-05 00:17 | EMERGENCY ROOM VISIT NOTE ---
History First contact with patient: 22:06 Chief Complaint: URINARY SYMPTOMS Stated Complaint: TROUBLE URINATING, NAUSEA, CHILLS,ABD PAIN Nursing Triage Summary: Pt c/o frequent urination, cloudy urine, hesitancy, nausea. "not to be gross, but my pee smells". pain to left flank into lower back. ongoing since last night. hx of UTIs History of Present Illness The patient is a 36 year old female who presents to the Emergency Room with complaints of urinary symptoms. The patient states that she has had frequent urination, foul-smelling urine and nausea which began yesterday. She states that she is beginning to have pain in the left back. She has a history of urinary tract infections, but denies any history of kidney infections. She rates her discomfort an 8/10. She denies any vomiting, changes in bowel movements, fevers or abdominal pain. She denies any abnormal vaginal discharge. Review of Systems A complete 10-point Review of Systems was discussed with the patient, with pertinent positives and negatives listed in the History of Present Illness. All remaining Review of Systems questions can be considered negative unless otherwise specified. Past Medical/Surgical History Medical Problems: (1) Abnormal finding on EKG (2) Anxiety (3) Anxiety State Nos (4) Asthma (5) Asthma, Unspecified (6) Cervical strain (7) Chest pain (8) Dental caries (9) Dentalgia (10) Depression (11) Elevated LFTs (12) Esophageal Reflux (13) Hyperthyroidism (14) Pain due to dental caries (15) Pain due to dental caries (16) Pain, dental (17) Pain, dental (18) Rib contusion Family History Cancer FH: depression Heart disease Hypertension Social History Smoking Status: Current Every Day Smoker Alcohol Use: none Drug Use: none Marital Status: in relationship Housing Status: lives with family Occupation Status: employed Current/Historical Medications Scheduled Medroxyprogesterone Acetate (Medroxyprogesterone Aceta), 150 MG IM Q3 MONTHS Sulfa/Trimethoprim (Bactrim Ds 800MG/160MG), 1 TAB PO BID Scheduled PRN Carisoprodol (Soma), 350 MG PO BID PRN for Muscle Spasm Allergies Coded Allergies: Grass (Verified Allergy, Mild, SNEEZE AND ITCHY EYES, 08/17/16) Ketorolac Tromethamine (Verified Allergy, Unknown, asthma flare, 08/17/16) Nitrofurantoin (Verified Allergy, Unknown, VOMITING, 08/17/16) Penicillins (Verified Allergy, Unknown, RXN CHILD, 08/17/16) Physical Exam Vital Signs Date Time Temp Pulse Resp B/P Pulse Ox O2 Delivery O2 Flow Rate FiO2 12/05/16 00:28 78 16 127/67 97 12/04/16 23:34 81 18 117/71 97 Room Air 12/04/16 21:59 36.9 117 16 140/90 94 Room Air Physical Exam VITALS: Vitals are noted on the nurse's note and reviewed by myself. Vital signs stable. GENERAL: This is a 36-year-old female, in no acute distress, nondiaphoretic, well-developed well-nourished. SKIN: Capillary reflex less than 2 seconds. HEART: Regular rate and rhythm without murmurs gallops or rubs. LUNGS: Clear to auscultation bilaterally without wheezes, rales or rhonchi. ABDOMEN: Positive bowel sounds x 4. Soft, nontender to palpation. No CVA tenderness. NEURO: Patient was alert and oriented to person place and time. Medical Decision & Procedures Laboratory Results 12/04/16 22:40 Red Blood Count 4.19, Mean Corpuscular Volume 86.6, Mean Corpuscular Hemoglobin 28.4, Mean Corpuscular Hemoglobin Concent 32.8, Mean Platelet Volume 8.5, Neutrophils (%) (Auto) 44.3, Lymphocytes (%) (Auto) 48.8, Monocytes (%) (Auto) 5.5, Eosinophils (%) (Auto) 1.0, Basophils (%) (Auto) 0.2, Neutrophils # (Auto) 2.68, Lymphocytes # (Auto) 2.94, Monocytes # (Auto) 0.33, Eosinophils # (Auto) 0.06, Basophils # (Auto) 0.01 12/04/16 22:40 Test 12/04/16 22:05 12/04/16 22:40 Urine Color ORANGE Urine Appearance SLIGHTLY CLOUDY (CLEAR) Urine pH (4.5-7.5) Urine Specific [place] (1.000-1.030) Urine Protein NEG (NEG) Urine Glucose (UA) (NEG) Urine Ketones (NEG) Urine Occult Blood (NEG) Urine Nitrite (NEG) Urine Bilirubin (NEG) Urine Urobilinogen (NEG) Urine Leukocyte Esterase (NEG) Urine RBC 10-30 /hpf (0-4) Urine WBC >30 /hpf (0-5) Urine Epithelial Cells 10-20 /lpf (0-5) Urine Bacteria 3+ (NEG) Urine Test NEG (NEG) White Blood Count 6.03 K/uL (4.8-10.8) Red Blood Count 4.19 M/uL (4.2-5.4) Hemoglobin 11.9 g/dL (12.0-16.0) Hematocrit 36.3 % (37-47) Mean Corpuscular Volume 86.6 fL (80-100) Mean Corpuscular Hemoglobin 28.4 pg (25-34) Mean Corpuscular Hemoglobin Concent 32.8 g/dl (32-36) Platelet Count 348 K/uL (130-400) Mean Platelet Volume 8.5 fL (7.4-10.4) Neutrophils (%) (Auto) 44.3 % Lymphocytes (%) (Auto) 48.8 % Monocytes (%) (Auto) 5.5 % Eosinophils (%) (Auto) 1.0 % Basophils (%) (Auto) 0.2 % Neutrophils # (Auto) 2.68 K/uL (1.4-6.5) Lymphocytes # (Auto) 2.94 K/uL (1.2-3.4) Monocytes # (Auto) 0.33 K/uL (0.11-0.59) Eosinophils # (Auto) 0.06 K/uL (0-0.5) Basophils # (Auto) 0.01 K/uL (0-0.2) RDW Standard Deviation 48.0 fL (36.4-46.3) RDW Coefficient of Variation 15.1 % (11.5-14.5) Immature Granulocyte % (Auto) 0.2 % Immature Granulocyte # (Auto) 0.01 K/uL (0.00-0.02) Anion Gap 9.0 mmol/L (3-11) Est Creatinine Clear Calc Drug Dose 93.2 ml/min Estimated GFR () 134.3 Estimated GFR (Non- 115.8 BUN/Creatinine Ratio 13.1 (10-20) Calcium Level 8.6 mg/dl (8.5-10.1) Medications Administered Medications (Trade) Dose Ordered Sig/Concepcion Route Start Time Stop Time Status Last Admin Dose Admin Sodium Chloride (Nss 1000ml) 1,000 ml @ 999 mls/hr Q1H1M STAT IV 12/04/16 22:24 12/04/16 23:24 DC 12/04/16 22:46 999 MLS/HR Ondansetron HCl (Zofran Inj) 4 mg NOW STAT IV 12/04/16 22:24 12/04/16 22:26 DC 12/04/16 22:44 4 MG Morphine Sulfate (MoRPHine SULFATE INJ) 4 mg NOW STAT IV 12/04/16 22:24 12/04/16 22:26 DC 12/04/16 22:45 4 MG ED Course The patient was evaluated as above. Labs were drawn and IV access was obtained. Patient was medicated with 1 L normal saline solution, 4 mg Zofran 4 mg morphine. Patient was reevaluated and felt much better. Findings were discussed with the patient at this time. She was given a home pack of Bactrim and [place]. Discharge instructions were reviewed with the patient. The patient verbalized understanding of my assessment and treatment plan and was discharged home in good condition. Medical Decision Differential diagnosis includes urinary tract infection, pyelonephritis, kidney stone, vaginal infection, among others. The patient is a 36-year-old female who presents today complaining of urinary symptoms. Labs revealed no leukocytosis, anemia or concerning electrolyte abnormalities. BUN and creatinine were within normal limits. Urinalysis was suggestive of infection. She may have an early pyelonephritis, given her back pain and nausea. Patient will be placed on Bactrim pending the urine culture results. Urine was negative. The patient's case was reviewed with Dr. Gamino, ED attending physician, who agreed with my assessment and treatment plan. Based on the patient's presentation and work up, I feel the patient is stable for outpatient treatment. The patient was educated to the emergency department for any worsening of their current condition or new/concerning symptoms. She will follow up with her primary care provider this week. Impression Primary Impression: Urinary tract infection Departure Information Dispostion Home / Self-Care Condition GOOD Prescriptions Sulfa/Trimethoprim (Bactrim Ds 800MG/160MG) Tab 1 TAB PO BID for 10 Days, #20 TAB Prov: Niki Tobin ., MAYITO 12/05/16 Referrals No Doctor, Assigned (PCP) Patient Instructions My [facility] Additional Instructions You have been treated in the Emergency Department for a Urinary Tract Infection (UTI). You have been prescribed Bactrim to be taken twice daily. This is an antibiotic. All antibiotics have the potential to cause diarrhea. Stop this medication and contact a medical provider if you were to develop any significant adverse side effects including: wheezing, shortness of breath, passing out, vomiting, or a diffuse rash. Always take antibiotics as directed and COMPLETE the ENTIRE course regardless of the improvement of your symptoms. Drink plenty of water and stay well hydrated. As with any trip to the Emergency Department, you should follow-up with your Primary Care Provider from today's visit. Return to the emergency department if your symptoms persist despite treatment plan outlined above or if the following symptoms occur: increased fevers, chills , low back pain, nausea/vomiting, or blood in your urine.
[2016-12-05 00:28] VITALS: BP 127/67; PULSE 78; O2SAT 97
--- NOTE | 2016-12-07 11:35 | Pharmacy Progress Note ---
ED Pharmacist Culture FollowUp Date of Service: Dec 07, 2016. Patient was sent home with a prescription for Bactrim, which should cover both of the E. coli's growing from the patient's urine culture.
== END 2016-12-05 00:29 | disposition home or self-care (01) ==
LOC: C.EDB 21:52 → C.EDC 12-05 00:29
DX: N39.0 Urinary tract infection, site not specified (principal); F41.9 Anxiety disorder, unspecified; J45.909 Unspecified asthma, uncomplicated; E05.90 Thyrotoxicosis, unspecified without thyrotoxic crisis or storm; K21.9 Gastro-esophageal reflux disease without esophagitis; F32.9 Major depressive disorder, single episode, unspecified; F17.200 Nicotine dependence, unspecified, uncomplicated; Z87.828 Personal history of other (healed) physical injury and trauma; Z88.0 Allergy status to penicillin; Z88.8 Allergy status to other drugs, medicaments and biological substances; Z80.9 Family history of malignant neoplasm, unspecified; Z82.49 Family history of ischemic heart disease and other diseases of the circulatory system; Z81.8 Family history of other mental and behavioral disorders

== ENCOUNTER 2016-12-06 00:36 | Emergency (ER) | payer OTHER ==
[~2016-12-06] VITALS: Ht 165.1 cm; Wt 43.0 kg
[~2016-12-06 00:36] MED LIST changes: +SULF800T23 PO
[2016-12-06 00:44] VITALS: BP 113/86; PULSE 93; TEMP 36.7; O2SAT 100; Ht 165.1 cm; Wt 43.0 kg
[2016-12-06] MEDS ORDERED: MoRPHine SULFATE 4 MG/ML 1 ML CARP\\VIAL IV STA (01:08)
[2016-12-06] MEDS ORDERED: ONDANSETRON INJ 2 MG/ML 2 ML VIAL IV STA (01:08)
--- NOTE | 2016-12-06 01:13 | EMERGENCY ROOM VISIT NOTE ---
History Report prepared by Judith: Arti Ceballos Under the Supervision of: Dr. Joselin Oviedo D.O. First contact with patient: 00:41 Chief Complaint: FLANK PAIN Stated Complaint: FLANK PAIN History of Present Illness The patient is a 36 year old female who presents to the Emergency Room with complaints of constant flank pain beginning yesterday. The patient states that she was seen here last night for similar symptoms. The patient reports that she has been taking Bactrim and has been feeling relief until 8 hours ago when she vomited. She notes that she has a flat tire and came in tonight by ambulance. She states that she took the pain medication 3 times since her visit. The patient complains of a decreased appetite but notes that she was able to eat today, decreased sleep, and chills. She denies any back pain and leg cramping or swelling. 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 She states that she has a history of UTIs and has never had an infection. Source of History: patient Onset: yesterday Position: other (left flank) Timing: constant Associated Symptoms: + chills, No back pain Note: She complains of a decreased appetite and sleep. She denies any leg cramping or swelling. Review of Systems See HPI for pertinent positives & negatives. A total of 10 systems reviewed and were otherwise negative. Past Medical & Surgical Medical Problems: (1) Abnormal finding on EKG (2) Anxiety (3) Anxiety State Nos (4) Asthma (5) Asthma, Unspecified (6) Cervical strain (7) Chest pain (8) Dental caries (9) Dentalgia (10) Depression (11) Elevated LFTs (12) Esophageal Reflux (13) Hyperthyroidism (14) Pain due to dental caries (15) Pain due to dental caries (16) Pain, dental (17) Pain, dental (18) Rib contusion Family History Cancer FH: depression Heart disease Hypertension Social History Smoking Status: Former Smoker Alcohol Use: none Drug Use: none Marital Status: in relationship Housing Status: lives with family Occupation Status: employed Current/Historical Medications Scheduled Medroxyprogesterone Acetate (Medroxyprogesterone Aceta), 150 MG IM Q3 MONTHS Sulfa/Trimethoprim (Bactrim Ds 800MG/160MG), 1 TAB PO BID Scheduled PRN Carisoprodol (Soma), 350 MG PO BID PRN for Muscle Spasm Allergies Coded Allergies: Grass (Verified Allergy, Mild, SNEEZE AND ITCHY EYES, 12/06/16) Ketorolac Tromethamine (Verified Allergy, Unknown, asthma flare, 12/06/16) Nitrofurantoin (Verified Allergy, Unknown, VOMITING, 12/06/16) Penicillins (Verified Allergy, Unknown, RXN CHILD, 12/06/16) Physical Exam Vital Signs Date Time Temp Pulse Resp B/P Pulse Ox O2 Delivery O2 Flow Rate FiO2 12/06/16 01:14 98 Room Air 12/06/16 00:44 36.7 93 16 113/86 100 Room Air Physical Exam HEENT: Head - normocephalic and atraumatic Pupils are equal, round, and reactive to light. Extraocular eye muscles are intact, and sclera are anicteric. Nose - moist nasal mucosa without discharge. Mouth - moist buccal mucosa. Oropharynx is nonerythematous and there is no tonsillar exudate or edema noted. Neck: Supple; no JVD, nuchal rigidity, cervical lymphadenophy. Heart: Regular rate and rhythm. There is a normal S1 and S2 with no murmurs, clicks, or gallops appreciated. Lungs: Clear to auscultation bilaterally with no wheezes, rales, or rhonchi. Back: Left CVA tenderness. Abdomen: Soft, completely nontender, nondistended, with good bowel sounds. There are no palpable pulsatile masses or hepatosplenomegaly. There is no guarding, rigidity, or rebound noted. Extremities: No evidence of cyanosis, clubbing, or edema. There are easily palpable peripheral pulses. Skin: warm and dry with good turgor and no rashes. Medical Decision & Procedures ER Provider Diagnostic Interpretation: US results as stated below per my review and radiologist interpretation: US RENAL: No hydronephrosis. Right kidney 10.3cm. Left Kidney 9.9cm. Laboratory Results 12/06/16 00:55 Red Blood Count 4.15, Mean Corpuscular Volume 86.3, Mean Corpuscular Hemoglobin 28.4, Mean Corpuscular Hemoglobin Concent 33.0, Mean Platelet Volume 8.4 12/06/16 00:55 Test 12/06/16 00:55 12/06/16 01:28 White Blood Count 4.95 K/uL (4.8-10.8) Red Blood Count 4.15 M/uL (4.2-5.4) Hemoglobin 11.8 g/dL (12.0-16.0) Hematocrit 35.8 % (37-47) Mean Corpuscular Volume 86.3 fL (80-100) Mean Corpuscular Hemoglobin 28.4 pg (25-34) Mean Corpuscular Hemoglobin Concent 33.0 g/dl (32-36) Platelet Count 342 K/uL (130-400) Mean Platelet Volume 8.4 fL (7.4-10.4) RDW Standard Deviation 46.8 fL (36.4-46.3) RDW Coefficient of Variation 14.9 % (11.5-14.5) Neutrophils % (Manual) 42.6 % Lymphocytes % (Manual) 33.9 % Variant Lymphocytes % (manual) 19.1 % Monocytes % (Manual) 3.5 % Eosinophils % (Manual) 0.9 % Neutrophils # (Manual) 2.11 K/uL (1.4-6.5) Total Absolute Neutrophils 2.11 K/uL (1.4-6.5) Lymphocytes # (Manual) 1.68 K/uL (1.2-3.4) Absolute Variant Lymphocytes 0.95 K/uL Total Absolute Lymphocytes 2.62 K/uL (1.2-3.4) Monocytes # (Manual) 0.17 K/uL (0.11-0.59) Eosinophils # (Manual) 0.04 K/uL (0-0.5) Red Blood Cell Morphology Unremarkable Anion Gap 10.0 mmol/L (3-11) Est Creatinine Clear Calc Drug Dose 67.3 ml/min Estimated GFR () 111.5 Estimated GFR (Non- 96.2 BUN/Creatinine Ratio 14.1 (10-20) Calcium Level 8.8 mg/dl (8.5-10.1) Total Bilirubin 0.7 mg/dl (0.2-1) Aspartate Amino Transf (AST/SGOT) 17 U/L (15-37) Alanine Aminotransferase (ALT/SGPT) 25 U/L (12-78) Alkaline Phosphatase 79 U/L (45-117) Total Protein 7.3 gm/dl (6.4-8.2) Albumin 4.2 gm/dl (3.4-5.0) Globulin 3.1 gm/dl (2.5-4.0) Albumin/Globulin Ratio 1.4 (0.9-2) Bedside Lactic Acid Venous 0.34 mmol/L (0.90-1.70) Laboratory results per my review. Medications Administered Medications (Trade) Dose Ordered Sig/Concepcion Route Start Time Stop Time Status Last Admin Dose Admin Morphine Sulfate (MoRPHine SULFATE INJ) 2 mg NOW STAT IV 12/06/16 01:08 12/06/16 01:10 DC 12/06/16 01:18 2 MG Ondansetron HCl (Zofran Inj) 2 mg NOW STAT IV 12/06/16 01:08 12/06/16 01:10 DC 12/06/16 01:17 2 MG Procedure 0108: Zofran Inj 2mg IV, Morphine Sulfate 2mg IV. ED Course 0054: Past medical records reviewed. The patient was evaluated in room C9. A complete history and physical exam was performed. An IV lock was initiated and labs were drawn as above. 0108: Zofran Inj 2mg IV, Morphine Sulfate 2mg IV. The patient went for an ultrasound of the left kidney as described above. 0133: A septic workup was performed. I reevaluated her patient. Her lactate is .34. 0314: I reevaluated the patient and updated her. She does not feel better but would like to leave. 0326: Upon reevaluation, the patient is doing well. I discussed findings and results with her. She verbalized agreement of the treatment plan. The patient was discharged home. Medical Decision The patient is a 36 year old female who presents to the ED with flank pain. Differential diagnosis includes pyelonephritis, UTI, sleep deprivation, flank pain, sepsis. LABS: White Count is down to 4.9 from 6 yesterday Slightly anemic with Hemoglobin of 9.8 Lactic acid 0.34 Normal Renal function Glucose 66 Normal LFTs The patient presents to the emergency room with left-sided flank pain. She had been seen here in the emergency department yesterday. She was started on Bactrim at that time. The patient states that she actually felt much better this morning and went shopping with her mother. She then developed an episode of vomiting and left-sided flank pain. The patient has no fever and no leukocytosis. She does have some left-sided flank pain but no other specific signs of pyelonephritis. I've asked the patient to be close attention to her symptoms over the next couple of days. If she were to develop vomiting and was unable to eat along with fevers and increased left-sided flank pain, she made to return for pyelonephritis. Otherwise, she should take the antibiotics as prescribed and use Tylenol or Motrin for pain. Impression Primary Impression: Left flank pain Additional Impression: UTI (urinary tract infection) Scribe Attestation The scribe's documentation has been prepared under my direction and personally reviewed by me in its entirety. I confirm that the note above accurately reflects all work, treatment, procedures, and medical decision making performed by me. Departure Information Dispostion Home / Self-Care Referrals No Doctor, Assigned (PCP) Forms HOME CARE DOCUMENTATION FORM, IMPORTANT VISIT INFORMATION Patient Instructions ED Flank Pain Uncertain Cause, My [facility] Additional Instructions Rest. Take Bactrim as directed. Take a bland diet Tylenol or ibuprofen for pain Problem Qualifiers
[2016-12-06 01:14] VITALS: O2SAT 98
[2016-12-06 01:17] LABS: HEMATOCRIT 35.8 % (37-47); MEAN CELL VOLUME 86.3 fL (80-100); MEAN CORPUSCULAR HEMOGLOBIN 28.4 pg (25-34); MEAN PLATELET VOLUME 8.4 fL (7.4-10.4); PLATELET COUNT 342 K/uL (130-400); RED BLOOD COUNT 4.15 M/uL (4.2-5.4); WHITE BLOOD COUNT 4.95 K/uL (4.8-10.8)
[2016-12-06 01:41] LABS: BUN/CREATININE RATIO 14.1 (10-20); CALCIUM 8.8 mg/dl (8.5-10.1); CREATININE 0.8 mg/dl (0.60-1.20); POTASSIUM 3.5 mmol/L (3.5-5.1)
[2016-12-06 01:44] LABS: ALB/GLOB RATIO 1.4 (0.9-2)
[2016-12-06 01:46] LABS: COMPLETE YES; EOSINOPHIL % 0.9 %; LYMPH ABS # 1.68 K/uL (1.2-3.4); LYMPHOCYTE % 33.9 %; NEUTROPHILS % 42.6 %; VARIANT LYM ABS # 0.95 K/uL; VARIANT LYMPHOCYTE % 19.1 %
--- NOTE | 2016-12-06 07:57 | DIAGNOSTIC IMAGING REPORT ---
RENAL ULTRASOUND HISTORY: Left-sided flank pain. COMPARISON: Abdomen and pelvis CT 08/17/2016. FINDINGS: Right kidney: 10.3 cm. No hydronephrosis. Normal corticomedullary differentiation and cortical thickness. Left kidney: 9.9 cm. No hydronephrosis. Normal corticomedullary differentiation and cortical thickness. Bladder: No bladder wall thickening. The bilateral ureteral jets were identified. IMPRESSION: Normal renal ultrasound. Electronically signed by: Anton Mcclellan M.D. 12/06/2016 7:55 AM Dictated Date/Time: 12/06/2016 7:54 AM
== END 2016-12-06 03:30 | disposition home or self-care (01) ==
LOC: EDBD 00:36 → C.EDC 00:38
DX: R10.9 Unspecified abdominal pain (principal); N39.0 Urinary tract infection, site not specified; J45.909 Unspecified asthma, uncomplicated; Z87.440 Personal history of urinary (tract) infections; Z87.891 Personal history of nicotine dependence

== ENCOUNTER 2016-12-18 14:46 | Emergency (ER) | payer OTHER ==
[~2016-12-18] VITALS: Ht 165.1 cm; Wt 48.0 kg
[2016-12-18 14:57] VITALS: Ht 165.1 cm; Wt 48.0 kg
--- NOTE | 2016-12-18 15:32 | EMERGENCY ROOM VISIT NOTE ---
History Report prepared by Judith: Adam Novak Under the Supervision of: Dr. Concepción Julian D.O. First contact with patient: 15:17 Chief Complaint: ABDOMINAL PAIN Stated Complaint: KIDNEY PAIN, BOTH SIDES Nursing Triage Summary: PT HERE WITH ABD PAINS, BILATERAL FLANK PAINS SINCE THIS AM. History of Present Illness The patient is a 36 year old female who presents to the Emergency Room with complaints of constant bilateral flank pain that started this morning. The patient cannot get comfortable secondary to pain. The patient had similar pain that was unilateral on the left side two weeks ago, for which she was seen in the ED. She was treated for a potential UTI which she has history of. The patient has chills but has had no recorded fevers. She denies nausea, urinary symptoms, or changes in her bowel movements. She believes that she had pyelonephritis once. She has no known family history of kidney disease. The patient has been on Clindamycin for the past 4 days for an upcoming tooth exaction. She had a negative endoscopy recently. She denies the possibility of . 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 She had the surgery when she was young and has not had any complications. She is a smoker. She rarely drinks and does not use recreational drugs. Source of History: patient Onset: this morning Position: back (bilateral flank) Timing: constant Associated Symptoms: + chills, No fevers, No nausea, No urinary symptoms Review of Systems See HPI for pertinent positives & negatives. A total of 10 systems reviewed and were otherwise negative. Past Medical & Surgical Medical Problems: (1) Abnormal finding on EKG (2) Anxiety (3) Anxiety State Nos (4) Asthma (5) Asthma, Unspecified (6) Cervical strain (7) Chest pain (8) Dental caries (9) Dentalgia (10) Depression (11) Elevated LFTs (12) Esophageal Reflux (13) Hyperthyroidism (14) Pain due to dental caries (15) Pain due to dental caries (16) Pain, dental (17) Pain, dental (18) Rib contusion Family History Cancer FH: depression Heart disease Hypertension Social History Smoking Status: Current Every Day Smoker Alcohol Use: none Drug Use: none Marital Status: in relationship Housing Status: lives with family Occupation Status: employed Current/Historical Medications Scheduled Amphetamine-Dextroamphetamine 20MG (Adderall Xr 20MG), 20 MG PO QAM Medroxyprogesterone Acetate (Medroxyprogesterone Aceta), 150 MG IM Q3 MONTHS Scheduled PRN Carisoprodol (Soma), 350 MG PO BID PRN for Muscle Spasm Allergies Coded Allergies: Grass (Verified Allergy, Mild, SNEEZE AND ITCHY EYES, 12/06/16) Ketorolac Tromethamine (Verified Allergy, Unknown, asthma flare, 12/06/16) Nitrofurantoin (Verified Allergy, Unknown, VOMITING, 12/06/16) Penicillins (Verified Allergy, Unknown, RXN CHILD, 12/06/16) Physical Exam Vital Signs Date Time Temp Pulse Resp B/P Pulse Ox O2 Delivery O2 Flow Rate FiO2 12/18/16 16:24 36.8 79 20 128/84 98 Room Air 12/18/16 14:57 36.6 98 16 134/94 96 Room Air Physical Exam GENERAL: alert, well appearing, well nourished, no distress, non-toxic EYE EXAM: normal conjunctiva, PERRL and EOM's grossly intact OROPHARYNX: no exudate, no erythema, lips, buccal mucosa, and tongue normal and mucous membranes are moist NECK: supple, no nuchal rigidity, no adenopathy, non-tender LUNGS: Clear to auscultation. Normal chest wall mechanics HEART: no murmurs, S1 normal and S2 normal ABDOMEN: abdomen soft, non-tender, normo-active bowel sounds, no masses, no rebound or guarding. BACK: Back is symmetrical on inspection and there is no deformity, no midline tenderness. Bilateral flank tenderness. SKIN: no rashes and no bruising UPPER EXTREMITIES: upper extremities are grossly normal. LOWER EXTREMITIES: No pitting edema. NEURO EXAM: Normal sensorium, cranial nerves II-XII [grossly] intact, normal speech, no [gross] weakness of arms, no [gross] weakness of legs. [No drift. Finger to nose intact. Gross sensation intact.] Medical Decision & Procedures Laboratory Results 12/18/16 16:02 Red Blood Count 4.26, Mean Corpuscular Volume 86.2, Mean Corpuscular Hemoglobin 28.2, Mean Corpuscular Hemoglobin Concent 32.7, Mean Platelet Volume 8.4, Neutrophils (%) (Auto) 61.2, Lymphocytes (%) (Auto) 33.5, Monocytes (%) (Auto) 4.5, Eosinophils (%) (Auto) 0.3, Basophils (%) (Auto) 0.3, Neutrophils # (Auto) 3.91, Lymphocytes # (Auto) 2.14, Monocytes # (Auto) 0.29, Eosinophils # (Auto) 0.02, Basophils # (Auto) 0.02 12/18/16 16:02 Test 12/18/16 16:02 White Blood Count 6.39 K/uL (4.8-10.8) Red Blood Count 4.26 M/uL (4.2-5.4) Hemoglobin 12.0 g/dL (12.0-16.0) Hematocrit 36.7 % (37-47) Mean Corpuscular Volume 86.2 fL (80-100) Mean Corpuscular Hemoglobin 28.2 pg (25-34) Mean Corpuscular Hemoglobin Concent 32.7 g/dl (32-36) Platelet Count 323 K/uL (130-400) Mean Platelet Volume 8.4 fL (7.4-10.4) Neutrophils (%) (Auto) 61.2 % Lymphocytes (%) (Auto) 33.5 % Monocytes (%) (Auto) 4.5 % Eosinophils (%) (Auto) 0.3 % Basophils (%) (Auto) 0.3 % Neutrophils # (Auto) 3.91 K/uL (1.4-6.5) Lymphocytes # (Auto) 2.14 K/uL (1.2-3.4) Monocytes # (Auto) 0.29 K/uL (0.11-0.59) Eosinophils # (Auto) 0.02 K/uL (0-0.5) Basophils # (Auto) 0.02 K/uL (0-0.2) RDW Standard Deviation 45.9 fL (36.4-46.3) RDW Coefficient of Variation 14.6 % (11.5-14.5) Immature Granulocyte % (Auto) 0.2 % Immature Granulocyte # (Auto) 0.01 K/uL (0.00-0.02) Urine Color YELLOW Urine Appearance CLEAR (CLEAR) Urine pH 6.5 (4.5-7.5) Urine Specific [place] 1.009 (1.000-1.030) Urine Protein NEG (NEG) Urine Glucose (UA) NEG (NEG) Urine Ketones NEG (NEG) Urine Occult Blood NEG (NEG) Urine Nitrite NEG (NEG) Urine Bilirubin NEG (NEG) Urine Urobilinogen NEG (NEG) Urine Leukocyte Esterase NEG (NEG) Anion Gap 7.0 mmol/L (3-11) Est Creatinine Clear Calc Drug Dose 92.4 ml/min Estimated GFR () 134.3 Estimated GFR (Non- 115.8 BUN/Creatinine Ratio 12.5 (10-20) Calcium Level 8.8 mg/dl (8.5-10.1) Total Bilirubin 0.4 mg/dl (0.2-1) Aspartate Amino Transf (AST/SGOT) 15 U/L (15-37) Alanine Aminotransferase (ALT/SGPT) 20 U/L (12-78) Alkaline Phosphatase 80 U/L (45-117) Total Protein 7.0 gm/dl (6.4-8.2) Albumin 4.1 gm/dl (3.4-5.0) Globulin 2.9 gm/dl (2.5-4.0) Albumin/Globulin Ratio 1.4 (0.9-2) Lipase 162 U/L (73-393) Human Chorionic Gonadotropin, Qual NEG (NEG) Laboratory results per my review. ED Course 1521: The patient was evaluated in room B5. A complete history and physical exam was performed. 1635: Tylenol 1000 mg PO ordered. 1700: Per nursing, the patient is upset that she was only offered Tylenol, which she refused. She would like to leave. She states that "She should have went to [facility]." Medical Decision Differential diagnosis: Etiologies such as renal colic, appendicitis, diverticulitis, mesenteric ischemia, aortic pathology, infections, inflammatory bowel disease, PUD, biliary pathology, UTI, as well as others were entertained. I suspect drug-seeking behavior in this patient. Patient with reassuring labs. While she did seem tender to palpation in the flanks bilaterally, labs and vital signs were reassuring. When offered a nonnarcotic pain medication, patient demanded to leave abruptly. Doubt bacteremia/sepsis, no history to suggest occult traumatic injury, urine not suggestive of occult UTI or pyelonephritis. Patient with no history of renal stones. Patient with no other symptoms to suggest occult GI or PLANT PULLER pathology. Patient did not want to wait for repeat evaluation or further discussion. Impression Primary Impression: Left flank pain Scribe Attestation The scribe's documentation has been prepared under my direction and personally reviewed by me in its entirety. I confirm that the note above accurately reflects all work, treatment, procedures, and medical decision making performed by me. Departure Information Dispostion Home / Self-Care Referrals No Doctor, Assigned (PCP) Forms Call Back Authorization, HOME CARE DOCUMENTATION FORM, IMPORTANT VISIT INFORMATION Patient Instructions [facility] Additional Instructions Please follow up with her family doctor. Please return for any new or concerning symptoms. Continuing your regular medication as prescribed.
[2016-12-18] MEDS ORDERED: DPPI150 IM (16:08)
[2016-12-18] MEDS ORDERED: AMPH20CA3 PO (16:09)
[2016-12-18 16:12] LABS: BASO % 0.3 %; BASO ABS # 0.02 K/uL (0-0.2); COMPLETE YES; EOS % 0.3 %; HEMATOCRIT 36.7 % (37-47); IG% 0.2 %; LYMPH % 33.5 %; LYMPH ABS # 2.14 K/uL (1.2-3.4); MEAN CELL VOLUME 86.2 fL (80-100); MEAN CORPUSCULAR HEMOGLOBIN 28.2 pg (25-34); MEAN CORPUSCULAR HGB CONC 32.7 g/dl (32-36); MEAN PLATELET VOLUME 8.4 fL (7.4-10.4); MONO % 4.5 %; NEUT % 61.2 %; PLATELET COUNT 323 K/uL (130-400); RED BLOOD COUNT 4.26 M/uL (4.2-5.4); WHITE BLOOD COUNT 6.39 K/uL (4.8-10.8)
[2016-12-18 16:24] VITALS: BP 128/84; PULSE 79; TEMP 36.8; O2SAT 98
[2016-12-18 16:30] LABS: BUN/CREATININE RATIO 12.5 (10-20); CALCIUM 8.8 mg/dl (8.5-10.1); CREATININE 0.65 mg/dl (0.60-1.20); POTASSIUM 3.9 mmol/L (3.5-5.1)
[2016-12-18 16:33] LABS: ALB/GLOB RATIO 1.4 (0.9-2); PREG INTERNAL NEGATIVE QC NEG CLEAR BACKGROUND; PREG INTERNAL POSITIVE QC POS CONTROL LINE
[2016-12-18] MEDS ORDERED: ACETAMINOPHEN 500 MG TAB PO STA (16:35)
[2016-12-18 16:46] LABS: URINE APPEARANCE CLEAR (CLEAR); URINE BILIRUBIN NEG (NEG); URINE COLOR YELLOW; URINE NITRITE NEG (NEG); URINE PH 6.5 (4.5-7.5); URINE SPECIFIC GRAVITY 1.009 (1.000-1.030); UROBILINOGEN NEG (NEG); ZZUR CULT IF INDIC CLEAN CATCH NO
[2016-12-18 16:51] LABS: MANUAL MICROSCOPIC REQUIRED? NO; REVIEW REQ? NO
[2016-12-18] MEDS ORDERED: CARI350T28 PO (22:46)
== END 2016-12-18 17:12 | disposition home or self-care (01) ==
LOC: C.EDB 14:48
DX: R10.30 Lower abdominal pain, unspecified (principal); F41.9 Anxiety disorder, unspecified; K21.9 Gastro-esophageal reflux disease without esophagitis; F32.9 Major depressive disorder, single episode, unspecified; J45.909 Unspecified asthma, uncomplicated; E05.90 Thyrotoxicosis, unspecified without thyrotoxic crisis or storm; F17.200 Nicotine dependence, unspecified, uncomplicated; Z87.828 Personal history of other (healed) physical injury and trauma; Z88.0 Allergy status to penicillin; Z88.8 Allergy status to other drugs, medicaments and biological substances; Z91.09 Other allergy status, other than to drugs and biological substances; Z80.9 Family history of malignant neoplasm, unspecified; Z81.8 Family history of other mental and behavioral disorders; Z82.49 Family history of ischemic heart disease and other diseases of the circulatory system

== ENCOUNTER 2018-04-02 06:13 | Emergency (ER) | payer OTHER ==
[~2018-04-02] VITALS: Ht 165.1 cm; Wt 45.5 kg
[~2018-04-02 06:13] MED LIST changes: +AMPH20CA3 PO; +CARI350T28 PO; +DPPI150 IM; -OMEP40CA41 PO; -SULF800T23 PO
[2018-04-02 06:19] VITALS: Ht 165.1 cm; Wt 45.5 kg
[2018-04-02] MEDS ORDERED: AMPH20TA2 PO (07:18)
[2018-04-02] MEDS ORDERED: AMPH10TA2 PO (07:20)
[2018-04-02] MEDS ORDERED: ZOLP5TAB PO (07:22)
[2018-04-02 08:37] LABS: BASO % 0.1 %; BASO ABS # 0.01 K/uL (0-0.2); HEMATOCRIT 38.6 % (37-47); HEMOGLOBIN 12.5 g/dL (12.0-16.0); IG# 0.01 K/uL (0.00-0.02); LYMPH % 8.4 %; LYMPH ABS # 0.61 K/uL (1.2-3.4); MEAN CELL VOLUME 81.1 fL (80-100); MEAN CORPUSCULAR HEMOGLOBIN 26.3 pg (25-34); MEAN CORPUSCULAR HGB CONC 32.4 g/dl (32-36); MEAN PLATELET VOLUME 9.9 fL (7.4-10.4); MONO % 3.9 %; MONO ABS # 0.28 K/uL (0.11-0.59); NEUT % 87.5 %; NEUT ABS # 6.31 K/uL (1.4-6.5); PLATELET COUNT 339 K/uL (130-400); RED CELL DISTRIBUTION WIDTH CV 16.1 % (11.5-14.5); RED CELL DISTRIBUTION WIDTH SD 47.8 fL (36.4-46.3); WHITE BLOOD COUNT 7.22 K/uL (4.8-10.8)
[2018-04-02 09:04] LABS: ALBUMIN 4.6 gm/dl (3.4-5.0); CALCIUM 9.2 mg/dl (8.5-10.1); CREATININE 0.64 mg/dl (0.60-1.20); POTASSIUM 2.9 mmol/L (3.5-5.1)
[2018-04-02] MEDS ORDERED: POTASSIUM CHLORIDE 10 MEQ TABCR PO STA (09:16)
[2018-04-02 09:30] VITALS: TEMP 37.1
--- NOTE | 2018-04-02 11:01 | EMERGENCY ROOM VISIT NOTE ---
History Report prepared by Judith: Luigi Mercado Under the Supervision of: Dr. Joselin Oviedo D.O. First contact with patient: 06:35 Chief Complaint: MENTAL HEALTH EVALUATION Stated Complaint: MENTAL HEALTH EVALUATION History of Present Illness The patient is a 37 year old female who presents to the Emergency Room for a mental health evaluation after making suicidal statements last night. The patient states that her son ran away from her home last night and she ran after him. She knocked on a neighbor's door looking for him and then asked the neighbor to "shoot me." The patient states that "I was serious at that time, but not right now." She denies any current suicidal or homicidal ideation. She does admit to drinking 1 can of beer last night, but denies any drug use. The patient does note a history of depression, anxiety, and ADHD, but states that she has stopped taking her Celexa and Adderall. She stopped taking Celexa two weeks ago. The patient continues to mention that she is "anxious about everything" and complains that she is having difficulties sleeping and is not eating. She denies any chance of . Source of History: patient Onset: Last night Position: head (psych) Quality: other (psych, suicidal ideation) Note: Suicidal statements last night, denies current SI Review of Systems See HPI for pertinent positives and negatives. A total of ten systems were reviewed and were otherwise negative. Past Medical & Surgical Medical Problems: (1) Abnormal finding on EKG (2) Anxiety (3) Anxiety State Nos (4) Asthma (5) Asthma, Unspecified (6) Cervical strain (7) Chest pain (8) Dental caries (9) Dentalgia (10) Depression (11) Elevated LFTs (12) Esophageal Reflux (13) Hyperthyroidism (14) Pain due to dental caries (15) Pain due to dental caries (16) Pain, dental (17) Pain, dental (18) Rib contusion Family History Cancer FH: depression Heart disease Hypertension Social History Smoking Status: Current Every Day Smoker Alcohol Use: none Drug Use: none Marital Status: in relationship Housing Status: lives with family Occupation Status: employed Current/Historical Medications Scheduled Amphetamine-Dextroamphetamine 10MG (Adderall 10MG), 10 MG PO QAFTERNOON Amphetamine-Dextroamphetamine 20MG (Adderall 20MG), 20 MG PO QAM Zolpidem Tartrate (Ambien), 5 MG PO HS Allergies Coded Allergies: Grass (Verified Allergy, Mild, SNEEZE AND ITCHY EYES, 12/06/16) Ketorolac Tromethamine (Verified Allergy, Unknown, asthma flare, 12/06/16) Nitrofurantoin (Verified Allergy, Unknown, VOMITING, 12/06/16) Penicillins (Verified Allergy, Unknown, RXN CHILD, 12/06/16) Physical Exam Vital Signs Date Time Temp Pulse Resp B/P (MAP) Pulse Ox O2 Delivery O2 Flow Rate FiO2 04/02/18 12:34 82 20 125/72 99 Room Air 04/02/18 11:34 88 20 132/76 99 Room Air 04/02/18 09:30 37.1 109 20 146/93 99 Room Air 04/02/18 06:19 37.7 120 24 136/93 100 Room Air Physical Exam Physical Exam GENERAL: He is oriented to person, place, and time. He appears well-developed and well-nourished. He does not appear distressed. HENT: Exam performed. Head: Normocephalic and atraumatic. Right Ear: External ear normal. No mastoid tenderness. Left Ear: External ear normal. No mastoid tenderness. Mouth/Throat: The oropharynx is clear and moist. No trismus in the jaw. No dental abscesses or uvula swelling. No oropharyngeal exudate or tonsillar abscesses. EYES: Conjunctivae and EOM are normal. Pupils are equal, round, and reactive to light. Right eye exhibits no discharge. Left eye exhibits no discharge. No scleral icterus. NECK: Normal range of motion. Neck supple. No JVD present. No spinous process tenderness present. No carotid bruit present. No rigidity. No tracheal deviation and normal range of motion present. No Brudzinski's sign and no Kernig 's sign noted. CV: Normal rate, regular rhythm, normal heart sounds and intact distal pulses. There is no peripheral edema. Palpable radial pulses bue. PULM/CHEST: Effort normal and breath sounds normal. No respiratory distress. No stridor. He has no wheezes. He has no rales. Chest Wall: He exhibits no tenderness. ABD: The abdomen is soft. Bowel sounds are normal. He has no distension. No mass is present. There is no tenderness. There is no rebound, no guarding, no Pierre's sign and no tenderness at McBurney's point. Rovsig negative. MUSC/SKEL: Normal range of motion. There is no peripheral edema, tenderness or deformity. LYMPH: No cervical adenopathy. NEURO: He is alert and oriented to person, place, and time. He has normal strength. No cranial nerve deficit or sensory deficit. Coordination and gait normal. GCS eye subscore is 4. GCS verbal subscore is 5. GCS motor subscore is 6. Cerebellar tests wnl. SKIN: Skin is warm and dry. He is not diaphoretic. PSYCH: Depressed mood, anxious appearing. Medical Decision & Procedures Laboratory Results 04/02/18 08:01 Red Blood Count 4.76, Mean Corpuscular Volume 81.1, Mean Corpuscular Hemoglobin 26.3, Mean Corpuscular Hemoglobin Concent 32.4, Mean Platelet Volume 9.9, Neutrophils (%) (Auto) 87.5, Lymphocytes (%) (Auto) 8.4, Monocytes (%) (Auto) 3.9, Eosinophils (%) (Auto) 0.0, Basophils (%) (Auto) 0.1, Neutrophils # (Auto) 6.31, Lymphocytes # (Auto) 0.61, Monocytes # (Auto) 0.28, Eosinophils # (Auto) 0.00, Basophils # (Auto) 0.01 04/02/18 08:01 Test 04/02/18 06:30 04/02/18 08:01 Urine Color YELLOW Urine Appearance CLEAR (CLEAR) Urine pH 6.5 (4.5-7.5) Urine Specific Sharon 1.014 (1.000-1.030) Urine Protein 1+ (NEG) Urine Glucose (UA) NEG (NEG) Urine Ketones 1+ (NEG) Urine Occult Blood NEG (NEG) Urine Nitrite NEG (NEG) Urine Bilirubin NEG (NEG) Urine Urobilinogen NEG (NEG) Urine Leukocyte Esterase NEG (NEG) Urine WBC (Auto) 5-10 /hpf (0-5) Urine RBC (Auto) 0-4 /hpf (0-4) Urine Hyaline Casts (Auto) 10-30 /lpf (0-5) Urine Epithelial Cells (Auto) >30 /lpf (0-5) Urine Bacteria (Auto) 2+ (NEG) Urine Renal Epithelial Cells 0-5 /lpf (0-5) Urine Pathogenic Casts 0-3 GRANULAR CASTS /lpf (0) Urine Mucus PRESENT (NONE PRSENT) Urine Test NEG (NEG) Urine Opiates Screen NEG (NEG) Urine Methadone, Qualitative NEG (NEG) Urine Barbiturates NEG (NEG) Urine Phencyclidine (PCP) Level NEG (NEG) Ur Amphetamine/Methamphetamine POS (NEG) MDMA (Ecstasy) Screen NEG (NEG) Urine Benzodiazepines Screen NEG (NEG) Urine Cocaine Metabolite NEG (NEG) Urine Marijuana (THC) POS (NEG) White Blood Count 7.22 K/uL (4.8-10.8) Red Blood Count 4.76 M/uL (4.2-5.4) Hemoglobin 12.5 g/dL (12.0-16.0) Hematocrit 38.6 % (37-47) Mean Corpuscular Volume 81.1 fL (80-100) Mean Corpuscular Hemoglobin 26.3 pg (25-34) Mean Corpuscular Hemoglobin Concent 32.4 g/dl (32-36) Platelet Count 339 K/uL (130-400) Mean Platelet Volume 9.9 fL (7.4-10.4) Neutrophils (%) (Auto) 87.5 % Lymphocytes (%) (Auto) 8.4 % Monocytes (%) (Auto) 3.9 % Eosinophils (%) (Auto) 0.0 % Basophils (%) (Auto) 0.1 % Neutrophils # (Auto) 6.31 K/uL (1.4-6.5) Lymphocytes # (Auto) 0.61 K/uL (1.2-3.4) Monocytes # (Auto) 0.28 K/uL (0.11-0.59) Eosinophils # (Auto) 0.00 K/uL (0-0.5) Basophils # (Auto) 0.01 K/uL (0-0.2) RDW Standard Deviation 47.8 fL (36.4-46.3) RDW Coefficient of Variation 16.1 % (11.5-14.5) Immature Granulocyte % (Auto) 0.1 % Immature Granulocyte # (Auto) 0.01 K/uL (0.00-0.02) Anion Gap 12.0 mmol/L (3-11) Est Creatinine Clear Calc Drug Dose 88.1 ml/min Estimated GFR () 134.0 Estimated GFR (Non- 115.6 BUN/Creatinine Ratio 9.7 (10-20) Calcium Level 9.2 mg/dl (8.5-10.1) Total Bilirubin 1.4 mg/dl (0.2-1) Direct Bilirubin 0.4 mg/dl (0-0.2) Aspartate Amino Transf (AST/SGOT) 25 U/L (15-37) Alanine Aminotransferase (ALT/SGPT) 20 U/L (12-78) Alkaline Phosphatase 109 U/L (45-117) Total Protein 8.0 gm/dl (6.4-8.2) Albumin 4.6 gm/dl (3.4-5.0) Thyroid Stimulating Hormone (TSH) 1.220 uIu/ml (0.300-4.500) Ethyl Alcohol mg/dL < 3.0 mg/dl (0-3) Laboratory results reviewed by me Medications Administered Medications (Trade) Dose Ordered Sig/Concepcion Route Start Time Stop Time Status Last Admin Dose Admin Potassium Chloride (Klor-Con M10) 40 meq NOW STAT PO 04/02/18 09:16 04/02/18 09:17 DC 04/02/18 10:24 40 MEQ Trimethoprim/ Sulfamethoxazole (Septra Ds 800/ 160MG Tab) 1 tab NOW STAT PO 04/02/18 13:44 04/02/18 13:45 DC 04/02/18 13:44 1 TAB ED Course 0659: The patient was evaluated in room A6. A complete history and physical exam was performed. 0916: Ordered Potassium Chloride 40 meq PO. 1103: The patient will come in voluntarily. A bedsearch for inpatient psychiatric treatment is underway. 1416: Psych rn case manager states patient has been accepted to [facility] for inpatient psychiatric evaluation. Patient will be transferred when transportation is available. Medical Decision The patient will come in voluntarily. Psych rn case manager states patient has been accepted to [facility] for inpatient psychiatric evaluation. Patient will be transferred when transportation is available. Medication Reconcilliation Current Medication List: was personally reviewed by me Blood Pressure Screening Patient's blood pressure: Elevated blood pressure Blood pressure disposition: Elevated BP felt to be situational Referred to inpatient psych Impression Primary Impression: Suicidal ideation Scribe Attestation The scribe's documentation has been prepared under my direction and personally reviewed by me in its entirety. I confirm that the note above accurately reflects all work, treatment, procedures, and medical decision making performed by me. The chart was completed utilizing [employer] Speech voice recognition software. Grammatical errors, random word insertions, pronoun errors, and incomplete sentences are an occasional consequence of this system due to software limitations, ambient noise, and hardware issues. Any formal questions or concerns about the content, text, or information contained within the body of this dictation should be directly addressed to the physician for clarification. Departure Information Dispostion Mental Health Acute Care Referrals No Doctor, Assigned (PCP) Patient Instructions My [facility]
[2018-04-02] MEDS ORDERED: SULFAMETHOXAZOLE/TRIMETHOPRIM DS 800/160MG TAB PO STA (13:44)
[2018-04-02 15:17] VITALS: BP 156/95; PULSE 94; O2SAT 97
== END 2018-04-02 16:30 ==
LOC: C.EDB 06:14 → C.EDA 16:30
DX: R45.851 Suicidal ideations (principal); F32.9 Major depressive disorder, single episode, unspecified; F90.9 Attention-deficit hyperactivity disorder, unspecified type; E05.90 Thyrotoxicosis, unspecified without thyrotoxic crisis or storm; J45.909 Unspecified asthma, uncomplicated; K21.9 Gastro-esophageal reflux disease without esophagitis; Z79.899 Other long term (current) drug therapy; Z88.0 Allergy status to penicillin; Z88.8 Allergy status to other drugs, medicaments and biological substances; Z91.048 Other nonmedicinal substance allergy status; F17.200 Nicotine dependence, unspecified, uncomplicated

== ENCOUNTER 2020-04-06 21:33 | Inpatient (IN) ==
[2020-04-06] MEDS ORDERED: SODIUM CHLORIDE 0.9% 1000ML 1,000 ML IV ONE ×2 (22:15→23:22)
[2020-04-06] MEDS ORDERED: LORazepam 1 MG/2 ML VIAL IV STA ×2 (22:15→23:39)
[2020-04-06] MEDS ORDERED: ONDANSETRON INJ 2 MG/ML 2 ML VIAL IV STA (22:15)
[2020-04-06 22:41] LABS: Basophils # (auto) 0.02 K/uL (0-0.2); Basophils % (auto) 0.2 %; Hematocrit (blood only) 38.6 % (37-47); Immature Granulocytes # (auto) 0.01 K/uL (0.00-0.02); Immature Granulocytes % (auto) 0.1 %; Lymphocytes # (auto) 2.01 K/uL (1.2-3.4); Lymphocytes % (auto) 21.5 %; Mean Corpuscular Hemoglobin 27.1 pg (25-34); Mean Corpuscular Hgb Conc 33.7 g/dL (32-36); Mean Corpuscular Volume 80.6 fL (80-100); Mean Platelet Volume 8.6 fL (7.4-10.4); Monocytes # (auto) 0.32 K/uL (0.11-0.59); Monocytes % (auto) 3.4 %; Neutrophils % (auto) 74.8 %; Platelet Count 273 K/uL (130-400); RDW Coefficient of Variation 14.8 % (11.5-14.5); RDW Standard Deviation 43.8 fL (36.4-46.3); Red Blood Count 4.79 M/uL (4.2-5.4); White Blood Count 9.36 K/uL (4.8-10.8)
[2020-04-06 22:58] LABS: Alanine Aminotransferase 30 U/L (12-78); Aspartate Aminotransferase 54 U/L (15-37); BUN Creatinine Ratio 5.2 (10-20); Blood Urea Nitrogen 8 mg/dl (7-18); Calcium 8.7 mg/dl (8.5-10.1); Carbon Dioxide 22 mmol/L (21-32); Chloride 106 mmol/L (98-107); Creatinine Clr Calc Pharmacy 38.6 ml/min; Est GFR (African American) 47.9; Est GFR (Non-African American) 41.4; Glucose 129 mg/dl (70-99); Magnesium 1.9 mg/dl (1.8-2.4); Potassium 3.5 mmol/L (3.5-5.1); Sodium 139 mmol/L (136-145)
[2020-04-06 23:03] LABS: Albumin Globulin Ratio 1.2 (0.9-2); Alkaline Phosphatase 94 U/L (45-117); Bilirubin,Total 0.5 mg/dl (0.2-1); Globulin 3.3 gm/dl (2.5-4.0); Total Protein 7.3 gm/dl (6.4-8.2); Troponin I < 0.015 ng/ml (0-0.045)
[2020-04-07] MEDS ORDERED: MULTI-VITAMIN INFUSION 10 ML, THIAMINE HCL 100 MG, FOLIC ACID 1 MG in SODIUM CHLORIDE 0... IV ONE (00:29)
--- NOTE | 2020-04-07 01:17 | History & Physical Report ---
Date of Service April 07, 2020 Assessment & Plan (1) Alcohol withdrawal: Admit to monitored bed on AWSS protocol Given banana bag in ED. Placed on thiamine 100 mg p.o. daily. Placed on folic acid 1 mg p.o. daily NSS at 150 mils per hour Zofran 4 mg IV every 6 hours as needed Present on Admission?: Yes (2) Acute kidney injury: Creatinine 1.58 upon admission, with baseline 0.64. IV fluids as noted above. Repeat BMP and magnesium level in a.m. Present on Admission?: Yes (3) Sinus tachycardia: IV fluids as noted above Admit to monitored bed Present on Admission?: Yes (4) Attention deficit disorder: Hold dextroamphetamine Present on Admission?: Yes (5) Anxiety: Continue citalopram 20 mg daily, Seroquel 100 mg at bedtime and hydroxyzine 25 mg p.o. twice daily as needed Present on Admission?: Yes History of Present Illness Chief Complaint: The patient presents to the emergency department with concerns regarding alcohol withdrawal. Primary Care Provider: NO PCP The patient is a 39-year-old female with a past medical history including urinary tract infection, anxiety, migraine and a history of multiple falls, who presents to the emergency department with a recent fall, and concerns regarding alcohol withdrawal. She denies any recent travels or sick exposures Allergies Allergy/AdvReac Type Severity Reaction Status Date / Time grass pollen-perennial rye, Allergy Mild SNEEZE AND Verified 04/06/20 23:50 standar ITCHY EYES ketorolac Allergy Unknown asthma Verified 04/06/20 23:50 flare nitrofurantoin Allergy Unknown VOMITING Verified 04/06/20 23:50 Penicillins Allergy Unknown RXN Verified 04/06/20 23:50 CHILD Home Medications Home Medications Medication Instructions Recorded Confirmed Type citalopram [Celexa] 20 mg PO DAILY 04/06/20 04/06/20 History dextroamphetamine-amphetamine 10 mg PO BID 04/06/20 04/06/20 History dextroamphetamine-amphetamine 20 mg PO QAM 04/06/20 04/06/20 History hydroxyzine HCl 25 mg PO BID PRN 04/06/20 04/06/20 History lorazepam 0.5 mg PO BID PRN 04/06/20 04/06/20 History medroxyprogesterone 150 mg IM . EVERY 3 MONTHS 04/06/20 04/06/20 History quetiapine 100 mg PO HS 04/06/20 04/06/20 History Past Med/Surg History Social History Smoking Status: Never smoker Hx Substance Use: Yes Preferred Language: Estonian Feels Safe at Home: Yes Review of Systems Review of Systems: The patient denies chest pain, shortness of breath, dyspnea on exertion, cough, lower extremity swelling, sore throat, fevers, chills, sweats, weight change, fatigue, nausea, vomiting, d iarrhea , constipation, abdominal pain, pelvic pain, blood in urine or stool, dysuria, urinary frequency or urgency, rash, focal or generalized weakness, numbness or tingling in arms or legs, generalized arthralgias or myalgias, back or neck pain, or night sweats. The review of systems is otherwise negative other than for that already noted above, and at least 10 systems have been reviewed. Physical Exam Physical Exam: The patient is awake, alert and oriented 3, well developed and well nourished, left upper lid ecchymosis, lying in bed and in no acute distress. HEENT--PERRL, EOMI, mucous membranes and oropharynx dry. Neck--supple. No JVD. No bruits. Thyroid normal, trachea midline, no adenopat hy. Heart--normal S1 and S2. No murmurs, rubs or gallops. Lungs--clear bilaterally, no respiratory distress, no accessory muscle use. Abdomen--normal bowel sounds and soft. Nontender. Nondistended. Extremities--no cyanosis or clubbing. No edema. Dermatologic--normal skin turgor, normal color, no abnormal lymph nodes, no rash. Neurologic--cranial nerves II through XII grossly intact. Rheumatologic--normal range of motion. Psychiatric--normal affect. Results & Data Results & Data ([facility]) Vital Signs (Past 12 Hours) Vital Signs Temp Pulse Resp BP Pulse Ox 04/06/20 23:00 128 H 22 123/84 04/06/20 22:48 116 H 18 140/93 100 04/06/20 22:39 130 H 16 140/93 100 04/06/20 21:34 98.2 F 171 H 20 150/95 H 97 Laboratory Results Laboratory Results WBC 9.36 K/uL (4.8-10.8) 04/06/20: RBC 4.79 M/uL (4.2-5.4) 04/06/20: Hgb 13.0 g/dL (12.0-16.0) 04/06/20: Hct 38.6 % (37-47) 04/06/20: MCV 80.6 fL (80-100) 04/06/20 MCH 27.1 pg (25-34) 04/06/20 MCHC 33.7 g/dL (32-36) 04/06/20 RDW Std Deviation 43.8 fL (36.4-46.3) 04/06/20 RDW Coeff of Carmita 14.8 % (11.5-14.5) H 04/06/20 Plt Count 273 K/uL (130-400) 04/06/20 MPV 8.6 fL (7.4-10.4) 04/06/20 Immature Gran % (Auto) 0.1 % 04/06/20: Neut % (Auto) 74.8 % 04/06/20: Lymph % (Auto) 21.5 % 04/06/20: [place] % (Auto) 3.4 % 04/06/20: Eos % (Auto) 0.0 % 04/06/20: Baso % (Auto) 0.2 % 04/06/20: Neut # (Auto) 7.00 K/uL (1.4-6.5) H 04/06/20: Lymph # (Auto) 2.01 K/uL (1.2-3.4) 04/06/20: [place] # (Auto) 0.32 K/uL (0.11-0.59) 04/06/20: Eos # (Auto) 0.00 K/uL (0-0.5) 04/06/20: Baso # (Auto) 0.02 K/uL (0-0.2) 04/06/20: Immature Gran # (Auto) 0.01 K/uL (0.00-0.02) 04/06/20: Sodium 139 mmol/L (136-145) 04/06/20 22:28 Potassium 3.5 mmol/L (3.5-5.1) 04/06/20 22: Chloride 106 mmol/L (98-107) 04/06/20 22:28 Carbon Dioxide 22 mmol/L (21-32) 04/06/20 22: Anion Gap 12.0 (3-11) H 04/06/20 22:28 BUN 8 mg/dl (7-18) 04/06/20 22: Creatinine 1.58 mg/dl (0.6-1.2) H 04/06/20 22:28 Est Cr Clr Drug Dosing 38.6 ml/min 04/06/20 22:28 Est GFR ( Amer) 47.9 04/06/20: Est GFR (Non-Af Amer) 41.4 04/06/20 22: BUN/Creatinine Ratio 5.2 (10-20) L 04/06/20 22: Glucose 129 mg/dl (70-99) H 04/06/20 22: Calcium 8.7 mg/dl (8.5-10.1) 04/06/20: Magnesium 1.9 mg/dl (1.8-2.4) 04/06/20 22: Total Bilirubin 0.5 mg/dl (0.2-1) 04/06/20 22: AST 54 U/L (15-37) H 04/06/20 22:28 ALT 30 U/L (12-78) 04/06/20 22: Alkaline Phosphatase 94 U/L (45-117) 04/06/20 22: Troponin I < 0.015 ng/ml (0-0.045) 04/06/20 22: Total Protein 7.3 gm/dl (6.4-8.2) 04/06/20 22: Albumin 4.0 gm/dl (3.4-5.0) 04/06/20 22: Globulin 3.3 gm/dl (2.5-4.0) 04/06/20 22:28 Albumin/Globulin Ratio 1.2 (0.9-2) 04/06/20 22: Ethyl Alcohol mg/dL < 3.0 mg/dl (0-3) 04/06/20 22:28 Code Status & VTE Plan Code Status Full code VTE Prophylaxis Plan VTE Prophylaxis will be ordered: Yes PG Care Time/CCT Total # of Minutes Spent Total Time Spent with Patient: Total time spent is greater than 50% in coordination of care (as documented) at patient's floor/unit and/or counseling patient: Coding Level of Care Code 09910 Initial Inpt Care Lvl 3 Diagnoses Alcohol withdrawal F10.239 Acute kidney injury N17.9 Sinus tachycardia R00.0 Attention deficit disorder F98.8 Anxiety F41.9
[2020-04-07] MEDS: SODIUM CHLORIDE 0.9% 1000ML 1,000 ML IV SCH ×4 (02:39→21:54)
[2020-04-07 02:42] LABS: Basophils # (auto) 0.01 K/uL (0-0.2); Basophils % (auto) 0.1 %; Hemoglobin 10.4 g/dL (12.0-16.0); Immature Granulocytes # (auto) 0.01 K/uL (0.00-0.02); Immature Granulocytes % (auto) 0.1 %; Lymphocytes # (auto) 1.21 K/uL (1.2-3.4); Lymphocytes % (auto) 15.5 %; Mean Corpuscular Hemoglobin 27.9 pg (25-34); Mean Corpuscular Hgb Conc 33.5 g/dL (32-36); Mean Corpuscular Volume 83.1 fL (80-100); Mean Platelet Volume 8.6 fL (7.4-10.4); Monocytes # (auto) 0.19 K/uL (0.11-0.59); Monocytes % (auto) 2.4 %; Neutrophils # (auto) 6.37 K/uL (1.4-6.5); Neutrophils % (auto) 81.9 %; Platelet Count 208 K/uL (130-400); RDW Coefficient of Variation 15.1 % (11.5-14.5); RDW Standard Deviation 46.7 fL (36.4-46.3); Red Blood Count 3.73 M/uL (4.2-5.4); White Blood Count 7.79 K/uL (4.8-10.8)
[2020-04-07 02:46] LABS: INR 1.2 (0.9-1.1); Prothrombin Time 12.4 Seconds (9.0-12.0)
[2020-04-07] MEDS: LORazepam 1 MG TAB PO PRN ×8 (02:57→21:59)
[2020-04-07 03:00] LABS: Albumin Globulin Ratio 1.2 (0.9-2); Albumin Level 3.2 gm/dl (3.4-5.0); BUN Creatinine Ratio 4.3 (10-20); Bilirubin,Total 0.6 mg/dl (0.2-1); Creatinine Clr Calc Pharmacy 42.7 ml/min; Est GFR (African American) 54.1; Est GFR (Non-African American) 46.7; Globulin 2.6 gm/dl (2.5-4.0); Potassium 3.7 mmol/L (3.5-5.1); Total Protein 5.8 gm/dl (6.4-8.2)
--- NOTE | 2020-04-07 06:40 | Emergency Department Note ---
History of Present Illness General Chief complaint: Detox Request Stated complaint: DETOX REQUEST BY HER MOTHER Time Seen by Provider: 04/06/20 21:43 Source: patient and family Mode of arrival: ambulatory Limitations: no limitations History of Present Illness This patient is a 39-year-old female who presents to the emergency department for evaluation of alcohol withdrawal. Patient admits that "I have a drinking problem." She has been to rehab in the past at [facility] and did well with that. Patient states that she has been drinking heavily over the past few days. Patient is not very forthcoming regarding how much she drinks or how often. She states that she drinks beers and does drink on a regular basis, although will not expand on that. She states that her last drink was early this morning and she is feeling shaky and sweaty. She does have a history of opiate abuse in the past. Patient lives with her mother. The patient's mother reports that the patient has been drinking in secret and has been drinking very heavily over the past few days. She states the patient has been falling a lot when she is drunk. The patient denies any drug use. Home Medications Home Medications Medication Instructions Recorded Confirmed Type citalopram [Celexa] 20 mg PO DAILY 04/06/20 04/06/20 History dextroamphetamine-amphetamine 10 mg PO BID 04/06/20 04/06/20 History dextroamphetamine-amphetamine 20 mg PO QAM 04/06/20 04/06/20 History hydroxyzine HCl 25 mg PO BID PRN 04/06/20 04/06/20 History lorazepam 0.5 mg PO BID PRN 04/06/20 04/06/20 History medroxyprogesterone 150 mg IM . EVERY 3 MONTHS 04/06/20 04/06/20 History quetiapine 100 mg PO HS 04/06/20 04/06/20 History Allergies Allergy/AdvReac Type Severity Reaction Status Date / Time grass pollen-perennial rye, Allergy Mild SNEEZE AND Verified 04/06/20 23:50 standar ITCHY EYES ketorolac Allergy Unknown asthma Verified 04/06/20 23:50 flare nitrofurantoin Allergy Unknown VOMITING Verified 04/06/20 23:50 Penicillins Allergy Unknown RXN Verified 04/06/20 23:50 CHILD Past Med/Surg History Medical History Alcohol abuse Attention deficit disorder Social History Smoking Status: Never smoker Hx Alcohol Use: Yes Alcohol type: beer Hx Substance Use: No Preferred Language: Grenadian Communication Ability: Effective Client Manager Large Law Required: No Beliefs That Will Affect Care: None Current Living Situation: Family Feels Safe at Home: Yes Review of Systems A total of 10 systems reviewed and were otherwise negative Physical Exam Vital Signs Vital Signs - 24 hr 04/06/20 21:34 04/06/20 22:39 04/06/20 22:48 Temperature 36.8 C Temperature Source Oral Pulse Rate 171 H 130 H 116 H Pulse Rate from SpO2 Sensor 131 H 115 H Pulse Rhythm Regular Respiratory Rate 20 16 18 Respiratory Effort / Characteristics Non-Labored Spontaneous Respiratory Depth Normal Respiratory Pattern Regular Blood Pressure 150/95 H 140/93 140/93 Blood Pressure Mean 113 117 117 Pulse Oximetry 97 100 100 Oxygen Delivery Method Room Air Sepsis Recent Fever Within 48 Hours No Sepsis New/Unexplained Change in Mental Status No Sepsis Action Taken by Nursing No Action Required 04/06/20 23:00 04/07/20 00:00 04/07/20 00:30 Temperature Temperature Source Pulse Rate 128 H 133 H 138 H Pulse Rate from SpO2 Sensor 135 H 140 H Pulse Rhythm Respiratory Rate 22 16 20 Respiratory Effort / Characteristics Respiratory Depth Respiratory Pattern Blood Pressure 123/84 123/77 127/80 Blood Pressure Mean 88 92 96 Pulse Oximetry 97 97 Oxygen Delivery Method Sepsis Recent Fever Within 48 Hours Sepsis New/Unexplained Change in Mental Status Sepsis Action Taken by Nursing 04/07/20 01:00 04/07/20 01:01 Temperature Temperature Source Pulse Rate 139 H 137 H Pulse Rate from SpO2 Sensor 138 H 137 H Pulse Rhythm Respiratory Rate 16 22 Respiratory Effort / Characteristics Respiratory Depth Respiratory Pattern Blood Pressure 130/81 Blood Pressure Mean 96 Pulse Oximetry 98 97 Oxygen Delivery Method Sepsis Recent Fever Within 48 Hours Sepsis New/Unexplained Change in Mental Status Sepsis Action Taken by Nursing VITALS: Vitals are noted on the nurse's note and reviewed by myself. Vital signs stable. GENERAL: This is a 39-year-old female, anxious appearing, well-developed well- nourished. SKIN: Skin is clammy and warm. HEAD: Normocephalic atraumatic. EARS: External auditory canals clear, tympanic membranes pearly morrell without erythema or effusion bilaterally. EYES: Pupils equal round and reactive to light and accommodation. Extraocular movements intact. MOUTH: Mucous membranes moist. Tonsils are not enlarged. Pharynx without erythema or exudate. NECK: Supple without nuchal rigidity. No lymphadenopathy. HEART: Tachycardic, regular rhythm without murmurs gallops or rubs. LUNGS: Clear to auscultation bilaterally without wheezes, rales or rhonchi. ABDOMEN: Positive bowel sounds x 4. Soft, nontender to palpation. MUSCULOSKELETAL: Full range of motion throughout EXTREMITIES: No edema of the lower extremities. NEURO: Patient was alert and oriented to person place and time. Course Consultations Consultation #1: Dr. Tamia Lo [facility] hospitalist Administered Medications Sodium Chloride (Nss 1000ml) 1,000 mls @ 150 mls/hr IV .Q6H40M BEST Stop: 05/07/20 02:12 Last Admin: 04/07/20 02:39 Dose: 150 mls/hr Documented by: [id number] Lorazepam (Lorazepam 1 Mg Tab) 1 - 3 mg PO UD PRN; Protocol PRN Reason: EtoH Withdrawal AWSS 6-10+ Stop: 05/07/20 02:12 Last Admin: 04/07/20 07:11 Dose: 1 mg Documented by: [id number] Admin: 04/07/20 02:57 Dose: 1 mg Documented by: [id number] Discontinued Medications Sodium Chloride (Nss 1000ml) 1,000 mls @ 999 mls/hr IV .Q1H1M ONE Stop: 04/06/20 23:15 Last Infusion: 04/06/20 23:31 Dose: 0 mls/hr Documented by: [id number] Admin: 04/06/20 22:38 Dose: 999 mls/hr Documented by: [id number] Lorazepam (Ativan) 1 mg in 2 mls @ 2 mls/min IV NOW STA Stop: 04/06/20 22:16 Last Admin: 04/06/20 22:37 Dose: 2 mls/min Documented by: [id number] Sodium Chloride (Nss 1000ml) 1,000 mls @ 999 mls/hr IV .Q1H1M ONE Stop: 04/07/20 00:22 Last Infusion: 04/07/20 00:54 Dose: 0 mls/hr Documented by: [id number] Admin: 04/07/20 00:03 Dose: 999 mls/hr Documented by: [id number] Lorazepam (Ativan) 1 mg in 2 mls @ 2 mls/min IV NOW STA Stop: 04/06/20 23:40 Last Admin: 04/07/20 00:04 Dose: 2 mls/min Documented by: [id number] Multivitamins 10 ml/ Thiamine HCl 100 mg/ Folic Acid 1 mg/Sodium Chloride 1,011.2 mls @ 1,011.2 mls/hr IV .Q1H ONE Stop: 04/07/20 01:28 Last Infusion: 04/07/20 02:10 Dose: 0 mls/hr Documented by: [id number] Admin: 04/07/20 01:09 Dose: 1,011.2 mls/hr Documented by: [id number] Ondansetron HCl (Ondansetron Inj 2 Mg/Ml 2 Ml Vial) 4 mg IV NOW STA Stop: 04/06/20 22:16 Last Admin: 04/06/20 22:38 Dose: 4 mg Documented by: [id number] Medical Decision Making Differential Diagnosis Differential diagnosis includes alcohol intoxication, alcohol withdrawal, drug withdrawal, infection, electrolyte abnormality, dehydration, among others. Home Medications Current Medication List: was personally reviewed by me Laboratory Data Attestation: I reviewed the patient's lab results. Result diagrams: 04/07/20 02:26 04/07/20 02:26 Lab Results 04/06/20 04/06/20 04/06/20 Range/Units 22:28 22:28 22:28 WBC 9.36 (4.8-10.8) K/uL RBC 4.79 (4.2-5.4) M/uL Hgb 13.0 (12.0-16.0) g/dL Hct 38.6 (37-47) % MCV 80.6 (80-100) fL MCH 27.1 (25-34) pg MCHC 33.7 (32-36) g/dL RDW Std Deviation 43.8 (36.4-46.3) fL RDW Coeff of Carmita 14.8 H (11.5-14.5) % Plt Count 273 (130-400) K/uL MPV 8.6 (7.4-10.4) fL Immature Gran % (Auto) 0.1 % Neut % (Auto) 74.8 % Lymph % (Auto) 21.5 % [place] % (Auto) 3.4 % Eos % (Auto) 0.0 % Baso % (Auto) 0.2 % Neut # (Auto) 7.00 H (1.4-6.5) K/uL Lymph # (Auto) 2.01 (1.2-3.4) K/uL [place] # (Auto) 0.32 (0.11-0.59) K/uL Eos # (Auto) 0.00 (0-0.5) K/uL Baso # (Auto) 0.02 (0-0.2) K/uL Immature Gran # (Auto) 0.01 (0.00-0.02) K/uL Sodium 139 (136-145) mmol/L Potassium 3.5 (3.5-5.1) mmol/L Chloride 106 (98-107) mmol/L Carbon Dioxide 22 (21-32) mmol/L Anion Gap 12.0 H (3-11) BUN 8 (7-18) mg/dl Creatinine 1.58 H (0.6-1.2) mg/dl Est Cr Clr Drug Dosing 38.6 ml/min Est GFR ( Amer) 47.9 Est GFR (Non-Af Amer) 41.4 BUN/Creatinine Ratio 5.2 L (10-20) Glucose 129 H (70-99) mg/dl Calcium 8.7 (8.5-10.1) mg/dl Magnesium 1.9 (1.8-2.4) mg/dl Total Bilirubin 0.5 (0.2-1) mg/dl AST 54 H (15-37) U/L ALT 30 (12-78) U/L Alkaline Phosphatase 94 (45-117) U/L Troponin I < 0.015 (0-0.045) ng/ml Total Protein 7.3 (6.4-8.2) gm/dl Albumin 4.0 (3.4-5.0) gm/dl Globulin 3.3 (2.5-4.0) gm/dl Albumin/Globulin Ratio 1.2 (0.9-2) Ethyl Alcohol mg/dL < 3.0 (0-3) mg/dl ECG Data Attestation: I personally reviewed and interpreted this ECG as follows: Indication: + tachycardia Rate (beats per minute): 122 Rhythm: + sinus tachycardia ECG Intervals/blocks: + Incomplete right bundle branch block ECG ST segments: + Nonspecific ST abnormalities Change: the following changes noted (rate has increased) Blood Pressure Blood Pressure Findings: Normal blood pressure MDM Narrative The patient is a 39-year-old female who presents today complaining of alcohol withdrawal symptoms. Labs revealed no leukocytosis or concerning anemia. Creatinine mildly elevated at 1.58. EtOH negative at this time. Patient was given 2 L IV fluids, banana bag and a total of 3 mg of Ativan with some improve ment of her symptoms. Case management was able to secure a bed at [facility], however patient was still significantly tachycardic after this treatment and I feel she would benefit from further medical management prior to rehabilitation. Patient was agreeable with the plan. The case was discussed with the [facility], who agreed to evaluate the patient for further care. Impression & Plan Alcohol withdrawal Discharge Plan Visit Data Chief Complaint: Detox Request Stated Complaint: DETOX REQUEST BY HER MOTHER ED Provider: Gianni Sanders ED Midlevel Provider: Niki Tobin Discharge Problem: Alcohol withdrawal Patient Disposition: Admitted As Inpatient Discharge Instructions Interventions: ED Discharge Assessment Last Done: 04/07/20 01:45 Discharge Problem: Alcohol withdrawal Qualifiers: Complication of substance-induced condition: uncomplicated Qualified Code(s): F10.230 - Alcohol dependence with withdrawal, uncomplicated
[2020-04-07] MEDS: THIAMINE HCL 100 MG TAB PO SCH (08:40)
[2020-04-07] MEDS: FOLIC ACID 1 MG TAB PO SCH (08:40)
[2020-04-07] MEDS: CITALOPRAM 20 MG TAB PO SCH (08:40)
[2020-04-07] MEDS: ONDANSETRON INJ 2 MG/ML 2 ML VIAL IV PRN (12:48)
[2020-04-07] MEDS ORDERED: ACETAMINOPHEN 325 MG TAB PO ONE (13:45)
[2020-04-07 17:50] LABS: Appearance Urine Clear (Clear); Bilirubin Urine Negative (Negative); Blood Urine Negative (Negative); Color Urine Yellow; Glucose Urine UA Negative (Negative); Ketones Urine Negative (Negative); Leukocyte Esterase Urine Negative (Negative); Nitrite Urine Negative (Negative); Protein Urine Negative (Negative); Urobilinogen Urine Negative (Negative); pH Urine 7.5 (4.5-7.5)
[2020-04-07 19:46] LABS: BUN Creatinine Ratio 3.5 (10-20); Calcium 7.8 mg/dl (8.5-10.1); Creatinine Clr Calc Pharmacy 46.2 ml/min; Est GFR (African American) 59.6; Est GFR (Non-African American) 51.4; Potassium 3.9 mmol/L (3.5-5.1)
[2020-04-07] MEDS: QUETIAPINE FUMARATE 100 MG TABLET PO SCH (21:54)
[2020-04-08] MEDS: LORazepam 1 MG TAB PO PRN ×6 (00:53→21:18)
[2020-04-08] MEDS: SODIUM CHLORIDE 0.9% 1000ML 1,000 ML IV SCH ×3 (04:08→19:05)
[2020-04-08 06:39] LABS: Hematocrit (blood only) 31.5 % (37-47); Hemoglobin 9.9 g/dL (12.0-16.0); Mean Corpuscular Hemoglobin 26.7 pg (25-34); Mean Corpuscular Hgb Conc 31.4 g/dL (32-36); Mean Corpuscular Volume 84.9 fL (80-100); Mean Platelet Volume 9.9 fL (7.4-10.4); Platelet Count 165 K/uL (130-400); RDW Coefficient of Variation 15.1 % (11.5-14.5); RDW Standard Deviation 47.4 fL (36.4-46.3); Red Blood Count 3.71 M/uL (4.2-5.4); White Blood Count 4.36 K/uL (4.8-10.8)
[2020-04-08 06:48] LABS: INR 1.1 (0.9-1.1); Prothrombin Time 11.1 Seconds (9.0-12.0)
[2020-04-08 07:08] LABS: Basophils # (auto) 0.02 K/uL (0-0.2); Basophils % (auto) 0.5 %; Eosinophils # (auto) 0.02 K/uL (0-0.5); Eosinophils % (auto) 0.5 %; Lymphocytes # (auto) 2.62 K/uL (1.2-3.4); Lymphocytes % (auto) 60.1 %; Monocytes % (auto) 4.6 %; Neutrophils % (auto) 34.3 %
[2020-04-08 07:12] LABS: Albumin Level 2.9 gm/dl (3.4-5.0); BUN Creatinine Ratio 8.9 (10-20); Calcium 8.1 mg/dl (8.5-10.1); Creatinine Clr Calc Pharmacy 74.6 ml/min; Est GFR (African American) 98.6; Est GFR (Non-African American) 85.1; Magnesium 2.1 mg/dl (1.8-2.4); Potassium 3.4 mmol/L (3.5-5.1)
[2020-04-08 07:13] LABS: Albumin Globulin Ratio 1.1 (0.9-2); Bilirubin,Total 0.9 mg/dl (0.2-1); Globulin 2.6 gm/dl (2.5-4.0); Total Protein 5.5 gm/dl (6.4-8.2)
[2020-04-08] MEDS: CITALOPRAM 20 MG TAB PO SCH (09:27)
[2020-04-08] MEDS: FOLIC ACID 1 MG TAB PO SCH (09:27)
[2020-04-08] MEDS: THIAMINE HCL 100 MG TAB PO SCH (09:27)
--- NOTE | 2020-04-08 09:31 | Electrocardiogram Report ---
Test Reason : Blood Pressure : / mmHG Vent. Rate : 122 BPM Atrial Rate : 122 BPM P-R Int : 128 ms QRS Dur : 100 ms QT Int : 336 ms P-R-T Axes : 058 073 026 degrees QTc Int : 478 ms Sinus tachycardia Left atrial enlargement Incomplete right bundle branch block Borderline ECG When compared with ECG of 20-NOV-2015 14:00, Vent. rate has increased BY 53 BPM Confirmed by Chris Rubio ([id number]) on 04/08/2020 9:30:49 AM Referred By: REFERRED SELF Confirmed By:Chris Rubio
--- NOTE | 2020-04-08 10:13 | Electrocardiogram Report ---
Test Reason : Blood Pressure : / mmHG Vent. Rate : 070 BPM Atrial Rate : 070 BPM P-R Int : 122 ms QRS Dur : 100 ms QT Int : 414 ms P-R-T Axes : 053 076 065 degrees QTc Int : 447 ms Normal sinus rhythm with sinus arrhythmia Incomplete right bundle branch block Borderline ECG When compared with ECG of 06-APR-2020 22:24, Vent. rate has decreased BY 52 BPM Confirmed by Chris Rubio ([id number]) on 04/08/2020 10:13:02 AM Referred By: REFERRED SELF Confirmed By:Chris Rubio
[2020-04-08] MEDS ORDERED: GABAPENTIN 300 MG CAP PO ONE (11:48)
[2020-04-08] MEDS: GABAPENTIN 300 MG CAP PO SCH ×2 (14:06→21:19)
[2020-04-08] MEDS ORDERED: ACETAMINOPHEN 325 MG TAB PO PRN (14:11)
[2020-04-08] MEDS: ONDANSETRON INJ 2 MG/ML 2 ML VIAL IV PRN (19:05)
[2020-04-08] MEDS: QUETIAPINE FUMARATE 100 MG TABLET PO SCH (21:19)
--- NOTE | 2020-04-08 22:32 | Hospitalist Progress Note ---
Date of Service April 08, 2020 Assessment & Plan (1) Alcohol withdrawal: Admit to monitored bed on AWSS protocol Given banana bag in ED. Continue on thiamine 100 mg p.o. daily. Continue on folic acid 1 mg p.o. daily NSS at 150 mils per hour will be stopped. Zofran 4 mg IV every 6 hours as needed Ordered gabapentine taper, will be on 3 times dosing for 3 days, the BID dosing for 1 day. First day was 04/08. (2) Acute kidney injury: Creatinine 1.58 upon admission, with baseline 0.64. IV fluids as noted above. Repeat BMP and magnesium level in a.m. (3) Sinus tachycardia: IV fluids as noted above Admit to monitored bed (4) Attention deficit disorder: Hold dextroamphetamine; (5) Anxiety: Continue citalopram 20 mg daily, Seroquel 100 mg at bedtime and hydroxyzine 25 mg p.o. twice daily as needed Admission and Anticipated Discharge Date Admission Date: April 07, 2020 Subjective Patient reports feeling mildly better. She is still requiring lorazepam doses. She is asking when she can be discharged. Review of Systems Review of Systems: The patient denies chest pain, shortness of breath, dyspnea on exertion, cough, lower extremity swelling, sore throat, fevers, chills, sweats, weight change, fatigue, nausea, vomiting, diarrhea , constipation, abdominal pain, pelvic pain, blood in urine or stool, dysuria, urinary frequency or urgency, rash, focal or generalized weakness, numbness or tingling in arms or legs, generalized arthralgias or myalgias, back or neck pain, or night sweats. The review of systems is otherwise negative other than for that already noted above, and at least 10 systems have been reviewed. Physical Exam Physical Exam: The patient is awake, alert and oriented 3, well developed and well nourished, llying in bed and in no acute distress. HEENT--PERRL, EOMI, mucous membranes and oropharynx dry. Neck--supple. No JVD. No bruits. Thyroid normal, trachea midline, no adenopathy. Heart--normal S1 and S2. No murmurs, rubs or gallops. Lungs--clear bilaterally, no respiratory distress, no accessory muscle use. Abdomen--normal bowel sounds and soft. Nontender. Nondistended. Extremities--no cyanosis or clubbing. No edema. Dermatologic--normal skin turgor, normal color, no abnormal lymph nodes, no rash. Neurologic--cranial nerves II through XII grossly intact. Rheumatologic--normal range of motion. Psychiatric--normal affect. Results & Data Results & Data ([facility]) Vital Signs (Past 12 Hours) Vital Signs Temp Pulse Pulse Resp BP Pulse Ox 04/08/20 21:13 37.6 C H 86 20 130/90 97 04/08/20 19:01 37.6 C H 86 20 130/90 97 04/08/20 15:09 37.3 C 84 18 134/87 98 04/08/20 15:00 109 H 04/08/20 12:02 36.8 C 77 18 114/77 96 PG Care Time/CCT Total # of Minutes Spent Total Time Spent with Patient: Total time spent is greater than 50% in c oordination of care (as documented) at patient's floor/unit and/or counseling patient: Coding Level of Care Code 66187 Subseq Hosp Care Lvl 2 Diagnoses Alcohol withdrawal F10.230 Complication of substance-induced condition: uncomplicated Acute kidney injury N17.9 Sinus tachycardia R00.0 Attention deficit disorder F98.8 Anxiety F41.9 Time Spent (min) 25 (1) Alcohol withdrawal Complication of substance-induced condition: uncomplicated Qualified Code(s): F10.230 - Alcohol dependence with withdrawal, uncomplicated
[2020-04-09] MEDS: SODIUM CHLORIDE 0.9% 1000ML 1,000 ML IV SCH (02:47)
[2020-04-09] MEDS: LORazepam 1 MG TAB PO PRN ×2 (03:03→11:32)
[2020-04-09 07:48] LABS: Hematocrit (blood only) 32.1 % (37-47); Hemoglobin 10.4 g/dL (12.0-16.0); Mean Corpuscular Hemoglobin 27.4 pg (25-34); Mean Corpuscular Hgb Conc 32.4 g/dL (32-36); Mean Corpuscular Volume 84.7 fL (80-100); Mean Platelet Volume 9.9 fL (7.4-10.4); Platelet Count 153 K/uL (130-400); RDW Coefficient of Variation 14.7 % (11.5-14.5); RDW Standard Deviation 46.1 fL (36.4-46.3); Red Blood Count 3.79 M/uL (4.2-5.4); White Blood Count 4.25 K/uL (4.8-10.8)
[2020-04-09 08:07] LABS: Basophils # (auto) 0.03 K/uL (0-0.2); Basophils % (auto) 0.7 %; Eosinophils # (auto) 0.12 K/uL (0-0.5); Eosinophils % (auto) 2.8 %; Lymphocytes # (auto) 2.17 K/uL (1.2-3.4); Lymphocytes % (auto) 51.1 %; Monocytes # (auto) 0.25 K/uL (0.11-0.59); Monocytes % (auto) 5.9 %; Neutrophils # (auto) 1.68 K/uL (1.4-6.5); Neutrophils % (auto) 39.5 %
[2020-04-09 08:08] LABS: Partial Thromboplastin Ratio 0.8; Partial Thromboplastin Time 23.7 Seconds (21.0-31.0); Prothrombin Time 10.7 Seconds (9.0-12.0)
[2020-04-09] MEDS: CITALOPRAM 20 MG TAB PO SCH (08:13)
[2020-04-09] MEDS: GABAPENTIN 300 MG CAP PO SCH ×2 (08:13→14:07)
[2020-04-09] MEDS: FOLIC ACID 1 MG TAB PO SCH (08:14)
[2020-04-09] MEDS: THIAMINE HCL 100 MG TAB PO SCH (08:15)
[2020-04-09 08:16] LABS: Albumin Level 2.9 gm/dl (3.4-5.0); BUN Creatinine Ratio 18.2 (10-20); Calcium 8.4 mg/dl (8.5-10.1); Est GFR (African American) 128.9; Est GFR (Non-African American) 111.2; Magnesium 1.9 mg/dl (1.8-2.4); Potassium 3.5 mmol/L (3.5-5.1)
[2020-04-09 08:19] LABS: Bilirubin,Total 0.5 mg/dl (0.2-1); Globulin 2.8 gm/dl (2.5-4.0); Total Protein 5.7 gm/dl (6.4-8.2)
[2020-04-09] MEDS ORDERED: AMPHETAMINE ASP/SULF/DEXTRAMPH 20 MG TAB PO STA (08:53)
--- NOTE | 2020-04-09 08:53 | Electrocardiogram Report ---
Test Reason : Blood Pressure : / mmHG Vent. Rate : 097 BPM Atrial Rate : 097 BPM P-R Int : 116 ms QRS Dur : 094 ms QT Int : 356 ms P-R-T Axes : 063 075 049 degrees QTc Int : 452 ms Normal sinus rhythm Incomplete right bundle branch block Borderline ECG When compared with ECG of 08-APR-2020 08:51, No significant change was found Confirmed by Chris Rubio ([id number]) on 04/09/2020 8:53:12 AM Referred By: REFERRED SELF Confirmed By:Chris Rbuio
--- NOTE | 2020-04-09 16:47 | Discharge Summary ---
Date of Service April 09, 2020 Admission HPI Per Admitting Provider The patient is a 39-year-old female with a past medical history including urinary tract infection, anxiety, migraine and a history of multiple falls, who presents to the emergency department with a recent fall, and concerns regarding alcohol withdrawal. She denies any recent travels or sick exposures Principal Diagnosis Alcohol withdrawal Discharge Exam Constitutional WD/WN, vitals as above Eyes EOM intact bilaterally; no conjunctival abnormality ENMT external ear and nose normal, oropharynx normal Neck trachea midline, no thyromegaly normal visual inspection Respiratory normal respiratory effort, lungs clear to auscultation no respiratory distress Cardiovascular Rate/Rhythm: + tachycardic Heart Sounds: normal S1 and normal S2 Gastrointestinal (Abdomen) Inspection/Auscultation: abdomen normal to inspection; abdomen not distended Musculoskeletal no cyanosis or clubbing, extremities motor strength 5/5 Skin no rashes, warm and dry Neurologic moves all extremities and awake Psychiatric Orientation: alert, oriented to person and cooperative Discharge Data Allergies Allergy/AdvReac Type Severity Reaction Status Date / Time grass pollen-perennial rye, Allergy Mild SNEEZE AND Verified 04/06/20 23:50 standar ITCHY EYES ketorolac Allergy Unknown asthma Verified 04/06/20 23:50 flare nitrofurantoin Allergy Unknown VOMITING Verified 04/06/20 23:50 Penicillins Allergy Unknown RXN Verified 04/06/20 23:50 CHILD Consultations 04/07/20 00:35 ED Decision to Admit Stat 04/07/20 02:13 Consult Case Management - Discharge Planning Routine Hospital Course (1) Alcohol withdrawal: Admit to monitored bed on AWSS protocol Given banana bag in ED. - Did well and was ready for discharge by 04/09. No signs/symptoms of withdrawal other than mild tachycardia (HR in the 90s). Given short gabapentin taper on discharge. Patient preferred going home rather than rehab. (2) Acute kidney injury: Creatinine 1.58 upon admission, with baseline 0.64. IV fluids as noted above. -> Back to baseline by discharge. (3) Sinus tachycardia: IV fluids as noted above Admit to monitored bed (4) Attention deficit disorder: Hold dextroamphetamine; (5) Anxiety: Continue citalopram 20 mg daily, Seroquel 100 mg at bedtime and hydroxyzine 25 mg p.o. twice daily as needed Total Time Total Time Spent Total Time Spent (In Minutes): 35 Discharge Plan Discharge Items Patient Disposition: Home - Self-Care Reason For Visit: ALCOHOL WITHDRAWAL Discharge Diagnosis: Alcohol withdrawal Activity: Resume your previous activity Non-emergency contact: Primary Care Provider and Psychiatrist Call non-emergency contact if: your symptoms worsen Follow-up/Referrals: PCP,NO [Primary Care Provider] - Diet: Regular Addtl Attending Provider Instructions: Ms. Chávez, You were admitted with alcohol withdrawal. You did well and didn't need a lot of medication to help keep your withdrawal manageable. Please follow up with your psychiatry team regarding your anxiety. Please seek help with your alcohol addiction either through inpatient rehab or outpatient services such as Alcoholics Anonymous. We wish you the best and hope you find success in treating your addiction. To help minimize your withdrawal, we have sent a short script for gabapentin which can help prevent withdrawl symptoms. Please take 2 more tablets today (04/09), one at dinner and one before bedtime. Take 3 pills tomorrow (breakfast, lunch, and dinner). Take 2 pills on (breakfast and dinner). Take 1 pill on Wednesday (with breakfast). Then you're done. Do not take these pills with any alcohol or other sedating medications other than the ones prescribed and monitored by your psychiatry team. Pending Studies at Discharge: No Stand-Alone Forms: [facility], Smoking Cessation, Suicide Prevention Resources Medications and DC Order Prescriptions: New gabapentin 300 mg capsule 300 mg PO TID Qty: 8 RF: 0 Continued dextroamphetamine-amphetamine 10 mg tablet 10 mg PO BID RF: 0 citalopram [Celexa] 20 mg tablet 20 mg PO DAILY RF: 0 dextroamphetamine-amphetamine 20 mg tablet 20 mg PO QAM RF: 0 hydroxyzine HCl 25 mg tablet 25 mg PO BID PRN (Reason: Anxiety) RF: 0 medroxyprogesterone 150 mg/mL suspension 150 mg IM . EVERY 3 MONTHS RF: 0 quetiapine 50 mg tablet 100 mg PO HS RF: 0 lorazepam 0.5 mg tablet 0.5 mg PO BID PRN (Reason: Anxiety) RF: 0 Discharge Orders: Discharge Order (Routine); Ordered 04/09/20 Ordered By: Shar Layne/Other Patient Handouts: Alcoholism How to be Part of the Solution, Alcoholism Resources Admission Data Admit Date/Time: 04/07/20 01:15 Attending Provider: Shar Brooks Admit Provider: Demarco Cantrell Primary Care Provider: PCP,NO Other Providers: Demarco Cantrell Other Interventions: Discharge Summary Assessment (RN) Last Done: 04/09/20 11:56 Coding Level of Care Code D/C Day Management >30 mins Diagnoses Alcohol withdrawal F10.230 Complication of substance-induced condition: uncomplicated Acute kidney injury N17.9 Sinus tachycardia R00.0 Attention deficit disorder F98.8 Anxiety F41.9
== END 2020-04-09 14:41 | disposition home or self-care (01) | DRG 897 ==
LOC: ED 21:33 → SUATTDRO 04-07 01:15 → 2N 04-07 01:15

== ENCOUNTER 2020-08-02 10:59 | Inpatient (IN) ==
[2020-08-02] MEDS ORDERED: SODIUM CHLORIDE 0.9% 1000ML 1,000 ML IV SCH (11:15)
--- NOTE | 2020-08-02 11:26 | Emergency Department Note ---
Impression & Plan Acute alteration in mental status, Overdose, Methamphetamine use, Hypokalemia ED Provider Note NAME: JO MORGAN AGE: 39 SEX: F : 1980 ARRIVES VIA: Ambulance INFORMANT: Patient, ED PROVIDER(S): Hussein Rivera DO CHIEF COMPLAINT: Overdose HPI: The patient is a 39-year-old female who presented to the emergency department for altered mental status. The patient is a history of alcohol abuse. There was also the possibility of overdose with drugs. The patient initially was not answering questions well. They were unable to find IV access prior to arrival. The patient admits to methamphetamine use in the emergency department. She denies any trauma. She denies having any alcohol. She denies having any fevers or recent illnesses. The patient denies any suicidal homicidal ideation at this time. History is limited secondary to altered mental status but the patient is able to answer some questions. ROS: See above HPI for pertinent positives & negatives. A total of 10 systems reviewed and were otherwise negative. PAST MEDICAL HISTORY: See Below PAST SURGICAL HISTORY: See Below FAMILY HISTORY: See Below SOCIAL HISTORY: See Below HOME MEDICATIONS: See Below ALLERGIES: See Below VITALS: See Below PHYSICAL EXAMINATION: GENERAL: The patient is awake and very anxious appearing EYES: The conjunctivae are clear. The pupils are dilated and minimally reactive to light bilaterally. EARS, NOSE, MOUTH AND THROAT: The nose is without any evidence of any deformity. NECK: The neck is nontender and supple. RESPIRATORY: Normal respiratory effort is noted there is no evidence of wheezing rhonchi or rales CARDIOVASCULAR: Tachycardic rate with regular rhythm was noted. No definite murmur was noted. GASTROINTESTINAL: The abdomen is soft. Abdomen is nontender. MUSCULOSKELETAL/EXTREMITIES: There is no evidence of gross deformity full range of motion is noted in the hips and shoulders. SKIN: There is no obvious evidence of any rash. There are no petechiae, pallor or cyanosis noted. NEUROLOGIC: Patient is awake alert and oriented x3 strength is symmetric patellar reflexes are 2+ bilaterally PSYCH: The patient is very psychomotor active. She is currently denying any suicidal or homicidal ideation. MEDICAL DECISION MAKING: The patient is a 39-year-old female who presented to the emergency department with altered mental status and possible drug overdose. The patient was found to have very dilated pupils. She does have a history of some drug abuse in the past however further laboratory and radiographic studies were obtained to ensure there was no other cause for the patient's presentation. The patient did have a amphetamines in her urine drug screen however she does take amphetamines as prescription medications. At one time she did also admit to abusing amphetamines prior to arrival. It is difficult to ascertain the patient's true intent at this time. She was treated with IV fluids and IV Ativan. She was also treated with oral and IV potassium replacement. The patient was reevaluated multiple times and continues to improve. The patient was signed out to Dr. Ware change of shift. Please see his note for continuation of care and final disposition. Triage Nursing notes reviewed. Prior medical records reviewed Vital Signs: reviewed and remarkable for tachycardia Differential diagnosis: Mood disorder, infection, hypoglycemia, electrolyte abnormalities, cardiac sources, intracerebral event, toxicologic, trauma, neurologic, as well as other pathologies. ER treatment provided: See below Diagnostics interpreted by me: ECG: EKG was obtained in the emergency department. My interpretation is sinus tachycardia at 103 bpm. There is no ectopy. There is no acute ST segment abnormalities noted. Diffuse T wave flattening was noted. This was compared to a tracing from May 04, 2020. No significant changes were noted. Cardiac Monitoring: An order was placed for continuous cardiac monitoring. The monitor shows a rate of 110 bpm with sinus tachycardia rhythm. Laboratory studies: As stated above and show below. Imaging studies: See below Consultation(s): none Past Med/Surg History Medical History (Updated 08/02/20 @ 14:58 by Hussein Rivera DO) Alcohol abuse Attention deficit disorder Social History Smoking Status: Current every day smoker Hx Alcohol Use: Yes Alcohol type: beer Hx Substance Use: No Preferred Language: Lao Communication Ability: Effective Senior Accountant Required: No Beliefs That Will Affect Care: None Current Living Situation: Family Feels Safe at Home: Yes Assistive Devices: None Allergies Allergies Allergy/AdvReac Type Severity Reaction Status Date / Time ketorolac Allergy Intermediate asthma Verified 08/02/20 14:09 flare nitrofurantoin Allergy Intermediate VOMITING Verified 08/02/20 14:09 grass pollen-perennial rye, Allergy Mild SNEEZE AND Verified 08/02/20 14:09 standar ITCHY EYES Penicillins Allergy Unknown RXN Verified 08/02/20 14:09 CHILD Home Meds Home Medications Medication Instructions Recorded Confirmed citalopram [Celexa] 20 mg PO DAILY 08/02/20 08/02/20 dextroamphetamine-amphetamine 10 mg PO BID 08/02/20 08/02/20 dextroamphetamine-amphetamine 20 mg PO DAILY 08/02/20 08/02/20 hydroxyzine HCl 25 mg PO BID PRN 08/02/20 08/02/20 quetiapine [Seroquel] 100 mg PO HS 08/02/20 08/02/20 Previous Rx's Medication Instructions Recorded ondansetron 4 mg PO Q6H PRN #15 tab 07/29/20 Results & Data (ED) Vital Signs Vital Signs - 24 hr 08/02/20 11:04 08/02/20 11:15 08/02/20 11:18 Temperature 36.5 C Temperature Source Oral Pulse Rate 99 H Pulse Rate [Apical] 99 H Pulse Rate from SpO2 Sensor Pulse Rhythm Regular Pulse Rhythm [Apical] Regular Pulse Strength Normal Pulse Strength [Apical] Normal Respiratory Rate 26 H 24 Respiratory Effort / Characteristics Non-Labored Spontaneous Non-Labored Spontaneous Respiratory Depth Normal Normal Respiratory Pattern Regular Regular Blood Pressure 158/94 H Blood Pressure [Right Arm] 149/108 H Blood Pressure Mean 115 Blood Pressure Mean [Right Arm] 121 Blood Pressure Position Lying Blood Pressure Position [Right Arm] Lying Pulse Oximetry 100 100 100 Oxygen Delivery Method Room Air Room Air Room Air Sepsis Recent Fever Within 48 Hours No Sepsis New/Unexplained Change in Mental Status No Sepsis Action Taken by Nursing No Action Required 08/02/20 11:30 08/02/20 11:45 08/02/20 13:00 Temperature Temperature Source Pulse Rate 101 H Pulse Rate [Apical] 89 102 H Pulse Rate from SpO2 Sensor 103 H Pulse Rhythm Pulse Rhythm [Apical] Regular Regular Pulse Strength Pulse Strength [Apical] Normal Normal Respiratory Rate 28 H 23 30 H Respiratory Effort / Characteristics Non-Labored Spontaneous Non-Labored Spontaneous Respiratory Depth Normal Normal Respiratory Pattern Regular Regular Blood Pressure 128/89 Blood Pressure [Right Arm] 160/108 H 143/90 H Blood Pressure Mean 114 Blood Pressure Mean [Right Arm] 125 107 Blood Pressure Position Blood Pressure Position [Right Arm] Lying Lying Pulse Oximetry 99 100 100 Oxygen Delivery Method Room Air Room Air Room Air Sepsis Recent Fever Within 48 Hours Sepsis New/Unexplained Change in Mental Status Sepsis Action Taken by Nursing 08/02/20 13:01 08/02/20 13:15 08/02/20 13:16 Temperature Temperature Source Pulse Rate 101 H 103 H 100 H Pulse Rate [Apical] Pulse Rate from SpO2 Sensor 104 H 104 H 99 H Pulse Rhythm Pulse Rhythm [Apical] Pulse Strength Pulse Strength [Apical] Respiratory Rate 32 H 32 H 22 Respiratory Effort / Characteristics Respiratory Depth Respiratory Pattern Blood Pressure 130/95 Blood Pressure [Right Arm] Blood Pressure Mean 103 Blood Pressure Mean [Right Arm] Blood Pressure Position Blood Pressure Position [Right Arm] Pulse Oximetry 100 100 99 Oxygen Delivery Method Room Air Room Air Room Air Sepsis Recent Fever Within 48 Hours Sepsis New/Unexplained Change in Mental Status Sepsis Action Taken by Nursing 08/02/20 13:30 08/02/20 13:31 08/02/20 13:45 Temperature Temperature Source Pulse Rate 112 H 123 H 103 H Pulse Rate [Apical] Pulse Rate from SpO2 Sensor 103 H 119 H 101 H Pulse Rhythm Pulse Rhythm [Apical] Pulse Strength Pulse Strength [Apical] Respiratory Rate 21 28 H 21 Respiratory Effort / Characteristics Respiratory Depth Respiratory Pattern Blood Pressure 130/114 H 129/81 Blood Pressure [Right Arm] Blood Pressure Mean 126 100 Blood Pressure Mean [Right Arm] Blood Pressure Position Blood Pressure Position [Right Arm] Pulse Oximetry 95 95 95 Oxygen Delivery Method Room Air Room Air Room Air Sepsis Recent Fever Within 48 Hours Sepsis New/Unexplained Change in Mental Status Sepsis Action Taken by Nursing 08/02/20 13:46 08/02/20 14:00 08/02/20 14:01 Temperature Temperature Source Pulse Rate 92 H 114 H 114 H Pulse Rate [Apical] Pulse Rate from SpO2 Sensor 92 H 116 H 115 H Pulse Rhythm Pulse Rhythm [Apical] Pulse Strength Pulse Strength [Apical] Respiratory Rate 21 23 17 Respiratory Effort / Characteristics Respiratory Depth Respiratory Pattern Blood Pressure 153/88 H Blood Pressure [Right Arm] Blood Pressure Mean 105 Blood Pressure Mean [Right Arm] Blood Pressure Position Blood Pressure Position [Right Arm] Pulse Oximetry 95 96 98 Oxygen Delivery Method Room Air Room Air Room Air Sepsis Recent Fever Within 48 Hours Sepsis New/Unexplained Change in Mental Status Sepsis Action Taken by Nursing 08/02/20 14:15 08/02/20 14:16 08/02/20 14:30 Temperature Temperature Source Pulse Rate 106 H 104 H 115 H Pulse Rate [Apical] Pulse Rate from SpO2 Sensor 106 H 105 H 106 H Pulse Rhythm Pulse Rhythm [Apical] Pulse Strength Pulse Strength [Apical] Respiratory Rate 18 17 20 Respiratory Effort / Characteristics Respiratory Depth Respiratory Pattern Blood Pressure 165/147 H 142/83 H Blood Pressure [Right Arm] Blood Pressure Mean 156 93 Blood Pressure Mean [Right Arm] Blood Pressure Position Blood Pressure Position [Right Arm] Pulse Oximetry 97 98 90 Oxygen Delivery Method Room Air Room Air Room Air Sepsis Recent Fever Within 48 Hours Sepsis New/Unexplained Change in Mental Status Sepsis Action Taken by Nursing 08/02/20 14:31 08/02/20 14:45 Temperature Temperature Source Pulse Rate 108 H 113 H Pulse Rate [Apical] Pulse Rate from SpO2 Sensor 109 H 112 H Pulse Rhythm Pulse Rhythm [Apical] Pulse Strength Pulse Strength [Apical] Respiratory Rate 18 21 Respiratory Effort / Characteristics Respiratory Depth Respiratory Pattern Blood Pressure 102/90 Blood Pressure [Right Arm] Blood Pressure Mean 96 Blood Pressure Mean [Right Arm] Blood Pressure Position Blood Pressure Position [Right Arm] Pulse Oximetry 100 97 Oxygen Delivery Method Room Air Room Air Sepsis Recent Fever Within 48 Hours Sepsis New/Unexplained Change in Mental Status Sepsis Action Taken by Shelter Medications Current Medication List: was personally reviewed by me Laboratory Data Attestation: I reviewed the patient's lab results. Result diagrams: 08/02/20 11:13 08/02/20 11:13 Lab Results 08/02/20 08/02/20 08/02/20 Range/Units 11:13 11:13 11:13 WBC 5.70 (4.8-10.8) K/uL RBC 4.43 (4.2-5.4) M/uL Hgb 11.7 L (12.0-16.0) g/dL Hct 34.8 L (37-47) % MCV 78.6 L (80-100) fL MCH 26.4 (25-34) pg MCHC 33.6 (32-36) g/dL RDW Std Deviation 44.3 (36.4-46.3) fL RDW Coeff of Carmita 15.7 H (11.5-14.5) % Plt Count 127 L (130-400) K/uL MPV 9.5 (7.4-10.4) fL Immature Gran % (Auto) 0.2 % Neut % (Auto) 76.9 % Lymph % (Auto) 17.4 % Stanly % (Auto) 4.9 % Eos % (Auto) 0.2 % Baso % (Auto) 0.4 % Neut # (Auto) 4.39 (1.4-6.5) K/uL Lymph # (Auto) 0.99 L (1.2-3.4) K/uL Stanly # (Auto) 0.28 (0.11-0.59) K/uL Eos # (Auto) 0.01 (0-0.5) K/uL Baso # (Auto) 0.02 (0-0.2) K/uL Immature Gran # (Auto) 0.01 (0.00-0.02) K/uL PT Cancelled INR Cancelled APTT Cancelled PTT Ratio Cancelled Sodium 136 (136-145) mmol/L Potassium 2.2 L* (3.5-5.1) mmol/L Chloride 100 (98-107) mmol/L Carbon Dioxide 23 (21-32) mmol/L Anion Gap 12.0 H (3-11) BUN 8 (7-18) mg/dl Creatinine 0.74 (0.6-1.2) mg/dl Est Cr Clr Drug Dosing 90.2 ml/min Est GFR ( Amer) 120.0 Est GFR (Non-Af Amer) 103.5 BUN/Creatinine Ratio 11.3 (10-20) Glucose 123 H (70-99) mg/dl Calcium 9.1 (8.5-10.1) mg/dl Magnesium 2.4 (1.8-2.4) mg/dl Total Bilirubin 1.2 H (0.2-1) mg/dl AST 30 (15-37) U/L ALT 30 (12-78) U/L Alkaline Phosphatase 100 (45-117) U/L Total Creatine Kinase 207 H (26-192) U/L Troponin I < 0.015 (0-0.045) ng/ml Total Protein 8.1 (6.4-8.2) gm/dl Albumin 4.3 (3.4-5.0) gm/dl Globulin 3.8 (2.5-4.0) gm/dl Albumin/Globulin Ratio 1.1 (0.9-2) Lipase 235 (73-393) U/L HCG, Qual (Negative) Urine Color Urine Appearance (Clear) Urine pH (4.5-7.5) Ur Specific Hudson (1.000-1.030) Urine Protein (Negative) Urine Glucose (UA) (Negative) Urine Ketones (Negative) Urine Blood (Negative) Urine Nitrite (Negative) Urine Bilirubin (Negative) Urine Urobilinogen (Negative) Ur Leukocyte Esterase (Negative) Salicylates (2.8-20) mg/dl Urine Opiates Screen (Neg) Ur Methadone, Qual (Neg) Acetaminophen (10-30) ug/ml Urine Barbiturates (Neg) Ur Phencyclidine (PCP) (Neg) U Amphetamin/Meth Scrn (Neg) MDMA (Ecstasy) Screen (Neg) U Benzodiazepines Scrn (Neg) Ur Cocaine Metabolite (Neg) U Marijuana (THC) Screen (Neg) Ethyl Alcohol mg/dL (0-3) mg/dl 08/02/20 08/02/20 08/02/20 Range/Units 11:13 11:13 11:13 WBC (4.8-10.8) K/uL RBC (4.2-5.4) M/uL Hgb (12.0-16.0) g/dL Hct (37-47) % MCV (80-100) fL MCH (25-34) pg MCHC (32-36) g/dL RDW Std Deviation (36.4-46.3) fL RDW Coeff of Carmita (11.5-14.5) % Plt Count (130-400) K/uL MPV (7.4-10.4) fL Immature Gran % (Auto) % Neut % (Auto) % Lymph % (Auto) % Stanly % (Auto) % Eos % (Auto) % Baso % (Auto) % Neut # (Auto) (1.4-6.5) K/uL Lymph # (Auto) (1.2-3.4) K/uL Stanly # (Auto) (0.11-0.59) K/uL Eos # (Auto) (0-0.5) K/uL Baso # (Auto) (0-0.2) K/uL Immature Gran # (Auto) (0.00-0.02) K/uL PT INR APTT PTT Ratio Sodium (136-145) mmol/L Potassium (3.5-5.1) mmol/L Chloride (98-107) mmol/L Carbon Dioxide (21-32) mmol/L Anion Gap (3-11) BUN (7-18) mg/dl Creatinine (0.6-1.2) mg/dl Est Cr Clr Drug Dosing ml/min Est GFR ( Amer) Est GFR (Non-Af Amer) BUN/Creatinine Ratio (10-20) Glucose (70-99) mg/dl Calcium (8.5-10.1) mg/dl Magnesium (1.8-2.4) mg/dl Total Bilirubin (0.2-1) mg/dl AST (15-37) U/L ALT (12-78) U/L Alkaline Phosphatase (45-117) U/L Total Creatine Kinase (26-192) U/L Troponin I (0-0.045) ng/ml Total Protein (6.4-8.2) gm/dl Albumin (3.4-5.0) gm/dl Globulin (2.5-4.0) gm/dl Albumin/Globulin Ratio (0.9-2) Lipase (73-393) U/L HCG, Qual Negative (Negative) Urine Color Urine Appearance (Clear) Urine pH (4.5-7.5) Ur Specific Hudson (1.000-1.030) Urine Protein (Negative) Urine Glucose (UA) (Negative) Urine Ketones (Negative) Urine Blood (Negative) Urine Nitrite (Negative) Urine Bilirubin (Negative) Urine Urobilinogen (Negative) Ur Leukocyte Esterase (Negative) Salicylates < 1.7 L (2.8-20) mg/dl Urine Opiates Screen (Neg) Ur Methadone, Qual (Neg) Acetaminophen < 2 L (10-30) ug/ml Urine Barbiturates (Neg) Ur Phencyclidine (PCP) (Neg) U Amphetamin/Meth Scrn (Neg) MDMA (Ecstasy) Screen (Neg) U Benzodiazepines Scrn (Neg) Ur Cocaine Metabolite (Neg) U Marijuana (THC) Screen (Neg) Ethyl Alcohol mg/dL < 3.0 (0-3) mg/dl 08/02/20 08/02/20 08/02/20 Range/Units 11:26 11:26 12:30 WBC (4.8-10.8) K/uL RBC (4.2-5.4) M/uL Hgb (12.0-16.0) g/dL Hct (37-47) % MCV (80-100) fL MCH (25-34) pg MCHC (32-36) g/dL RDW Std Deviation (36.4-46.3) fL RDW Coeff of Carmita (11.5-14.5) % Plt Count (130-400) K/uL MPV (7.4-10.4) fL Immature Gran % (Auto) % Neut % (Auto) % Lymph % (Auto) % Stanly % (Auto) % Eos % (Auto) % Baso % (Auto) % Neut # (Auto) (1.4-6.5) K/uL Lymph # (Auto) (1.2-3.4) K/uL Stanly # (Auto) (0.11-0.59) K/uL Eos # (Auto) (0-0.5) K/uL Baso # (Auto) (0-0.2) K/uL Immature Gran # (Auto) (0.00-0.02) K/uL PT 11.6 INR 1.1 APTT 25.6 PTT Ratio 0.9 Sodium (136-145) mmol/L Potassium (3.5-5.1) mmol/L Chloride (98-107) mmol/L Carbon Dioxide (21-32) mmol/L Anion Gap (3-11) BUN (7-18) mg/dl Creatinine (0.6-1.2) mg/dl Est Cr Clr Drug Dosing ml/min Est GFR ( Amer) Est GFR (Non-Af Amer) BUN/Creatinine Ratio (10-20) Glucose (70-99) mg/dl Calcium (8.5-10.1) mg/dl Magnesium (1.8-2.4) mg/dl Total Bilirubin (0.2-1) mg/dl AST (15-37) U/L ALT (12-78) U/L Alkaline Phosphatase (45-117) U/L Total Creatine Kinase (26-192) U/L Troponin I (0-0.045) ng/ml Total Protein (6.4-8.2) gm/dl Albumin (3.4-5.0) gm/dl Globulin (2.5-4.0) gm/dl Albumin/Globulin Ratio (0.9-2) Lipase (73-393) U/L HCG, Qual (Negative) Urine Color Yellow Urine Appearance Clear (Clear) Urine pH 7.5 (4.5-7.5) Ur Specific Hudson 1.007 (1.000-1.030) Urine Protein Negative (Negative) Urine Glucose (UA) Negative (Negative) Urine Ketones 1+ H (Negative) Urine Blood Negative (Negative) Urine Nitrite Negative (Negative) Urine Bilirubin Negative (Negative) Urine Urobilinogen Negative (Negative) Ur Leukocyte Esterase Negative (Negative) Salicylates (2.8-20) mg/dl Urine Opiates Screen Neg (Neg) Ur Methadone, Qual Neg (Neg) Acetaminophen (10-30) ug/ml Urine Barbiturates Neg (Neg) Ur Phencyclidine (PCP) Neg (Neg) U Amphetamin/Meth Scrn Pos H (Neg) MDMA (Ecstasy) Screen Neg (Neg) U Benzodiazepines Scrn Neg (Neg) Ur Cocaine Metabolite Neg (Neg) U Marijuana (THC) Screen Neg (Neg) Ethyl Alcohol mg/dL (0-3) mg/dl Administered Medications Potassium Chloride (K Saurabh / Wtr) 10 meq in 100 mls @ 100 mls/hr IV Q1H BEST Stop: 08/02/20 16:59 Last Admin: 08/02/20 15:42 Dose: 100 mls/hr Documented by: [id number] Discontinued Medications Sodium Chloride (Nss 1000ml) 1,000 mls @ 999 mls/hr IV .Q1H1M BEST Stop: 08/02/20 12:15 Last Infusion: 08/02/20 12:33 Dose: 0 mls/hr Documented by: [id number] Admin: 08/02/20 11:32 Dose: 999 mls/hr Documented by: [id number] Lorazepam (Ativan) 1 mg in 2 mls @ 2 mls/min IV NOW STA Stop: 08/02/20 13:00 Last Admin: 08/02/20 13:16 Dose: 2 mls/min Documented by: [id number] Lorazepam (Ativan) 1 mg in 2 mls @ 2 mls/min IV NOW STA Stop: 08/02/20 14:30 Last Admin: 08/02/20 14:39 Dose: 2 mls/min Documented by: [id number] Potassium Chloride (Potassium Chloride Crtab 20 Meq Tabcr) 40 meq PO NOW STA Stop: 08/02/20 12:43 Last Admin: 08/02/20 12:50 Dose: 40 meq Documented by: [id number] Imaging Data Radiologist's Impression: Patient: JO MORGAN Admit Date: 08/02/20 MR#: [id number] Address1: [address] Acct ID:[id number] Address2: Date: 1980 [facility] Zip: [place] [address] Age: 39 Location: ED Sex: F Room/Bed: Att Phy: Diagnosis: AMS Elissa Phy: PCP,NO Service Date: 08/02/20 [facility] Phy: Interpreting Phy: Anton Mcclellan MD Admit Phy: Ordering Phy: Hussein Rivera DO cc: ~ HEAD CT NONCONTRAST CT DOSE: 2025.92 mGycm HISTORY: Overdose TECHNIQUE: Multiaxial CT images of the head were performed without the use of intravenous contrast. Automated exposure control was utilized for this study. A dose lowering technique was utilized adhering to the principles of ALARA. Comparison: None. Findings: Mild mucosal thickening within the left maxillary sinus. There is mild motion artifact. The calvarium and skull base are intact. The ventricles and sulci are within normal limits. There is no mass, hematoma, midline shift, or acute infarct. Impression: Mild motion artifact. No definite acute intracranial abnormality. ACT 112: Negative or not required by law. Electronically signed by: Anton Mcclellan M.D. 08/02/2020 12:25 PM Dictated: 08/02/20 1220 Transcribed: 08/02/20 1220 Patient: JO MORGAN Admit Date: 08/02/20 MR#: [id number] Address1: [address] Acct ID:[id number] Address2: Date: 1980 [facility] Zip: [place] [address] Age: 39 Location: ED Sex: F Room/Bed: Att Phy: Diagnosis: AMS Elissa Phy: PCP,NO Service Date: 08/02/20 [facility] Phy: Interpreting Phy: Amos Howard MD Admit Phy: Ordering Phy: Hussein Rivera DO cc: ~ XR chest 1V portable CLINICAL HISTORY: Overdose. COMPARISON STUDY: Chest radiograph and chest CT May 04, 2020. FINDINGS: Lung volumes are normal. Lungs are clear. There is no pneumothorax or pleural effusion. There is borderline cardiomegaly. Mediastinal contours are normal. There is no evidence for pulmonary edema. IMPRESSION: No acute cardiopulmonary findings. ACT 112: Negative or not required by law. Electronically signed by: Amos Howard M.D. 08/02/2020 11:33 AM Dictated: 08/02/20 1132 Transcribed: 08/02/20 1132 Blood Pressure Blood Pressure Findings: Normal blood pressure Discharge Plan Visit Data Chief Complaint: Overdose (Intentional) ED Provider: Hussein Rivera Discharge Problem: Acute alteration in mental status, Overdose, Methamphetamine use, Hypokalemia Patient Disposition: Still a Patient Condition: Good Discharge Instructions Krames/Other Patient Handouts: ED Drug Abuse Activity Restrictions/Additional Instructions: Call your family doctor to schedule a follow-up appointment. Continue medications only as prescribed. Avoid any further drug or alcohol use. Do not operate any heavy machinery including driving a vehicle for the next 48 hours. Forms Stand Alone Forms: [facility], Suicide Prevention Resources Prescriptions Prescriptions: No Action ondansetron 4 mg tablet,disintegrating 4 mg PO Q6H PRN (Reason: nausea and vomiting) Qty: 15 RF: 0 dextroamphetamine-amphetamine 10 mg tablet 10 mg PO BID RF: 0 citalopram [Celexa] 20 mg tablet 20 mg PO DAILY RF: 0 dextroamphetamine-amphetamine 20 mg tablet 20 mg PO DAILY RF: 0 hydroxyzine HCl 25 mg tablet 25 mg PO BID PRN (Reason: .) RF: 0 quetiapine [Seroquel] 50 mg tablet 100 mg PO HS RF: 0 Referrals Referrals: PCP,NO [Primary Care Provider] - Discharge Problem: Overdose Qualifiers: Encounter type: initial encounter Injury intent: undetermined intent Qualified Code(s): T50.904A - Poisoning by unspecified drugs, medicaments and biological substances, undetermined, initial encounter
[2020-08-02 11:30] LABS: Basophils # (auto) 0.02 K/uL (0-0.2); Basophils % (auto) 0.4 %; Eosinophils # (auto) 0.01 K/uL (0-0.5); Eosinophils % (auto) 0.2 %; Hematocrit (blood only) 34.8 % (37-47); Hemoglobin 11.7 g/dL (12.0-16.0); Immature Granulocytes # (auto) 0.01 K/uL (0.00-0.02); Immature Granulocytes % (auto) 0.2 %; Lymphocytes # (auto) 0.99 K/uL (1.2-3.4); Lymphocytes % (auto) 17.4 %; Mean Corpuscular Hemoglobin 26.4 pg (25-34); Mean Corpuscular Hgb Conc 33.6 g/dL (32-36); Mean Corpuscular Volume 78.6 fL (80-100); Mean Platelet Volume 9.5 fL (7.4-10.4); Monocytes # (auto) 0.28 K/uL (0.11-0.59); Monocytes % (auto) 4.9 %; Neutrophils # (auto) 4.39 K/uL (1.4-6.5); Neutrophils % (auto) 76.9 %; Platelet Count 127 K/uL (130-400); RDW Coefficient of Variation 15.7 % (11.5-14.5); RDW Standard Deviation 44.3 fL (36.4-46.3); Red Blood Count 4.43 M/uL (4.2-5.4)
[2020-08-02 11:35] LABS: Appearance Urine Clear (Clear); Bilirubin Urine Negative (Negative); Blood Urine Negative (Negative); Color Urine Yellow; Glucose Urine UA Negative (Negative); Ketones Urine 1+ (Negative); Leukocyte Esterase Urine Negative (Negative); Nitrite Urine Negative (Negative); Protein Urine Negative (Negative); Specific Gravity Urine 1.007 (1.000-1.030); Urobilinogen Urine Negative (Negative); pH Urine 7.5 (4.5-7.5)
--- NOTE | 2020-08-02 11:35 | XRay Report ---
XR chest 1V portable CLINICAL HISTORY: Overdose. COMPARISON STUDY: Chest radiograph and chest CT May 04, 2020. FINDINGS: Lung volumes are normal. Lungs are clear. There is no pneumothorax or pleural effusion. The re is borderline cardiomegaly. Mediastinal contours are normal. There is no evidence for pulmonary ed mahesh. IMPRESSION: No acute cardiopulmonary findings. ACT 112: Negative or not required by law. Electronically signed by: Amos Howard M.D. 08/02/2020 11:33 AM
[2020-08-02 11:50] LABS: Amphetamines+Metham, Urine Pos (Neg); Barbiturates, Urine Neg (Neg); Benzodiazepine, Urine Neg (Neg); Cocaine, Urine Neg (Neg); MDMA (Ecstacy), Urine Neg (Neg); Methadone, Urine Neg (Neg); Opiate, Urine Neg (Neg); Phencyclidine, Urine Neg (Neg)
[2020-08-02 11:53] LABS: Pregnancy Test, Serum Negative (Negative)
[2020-08-02 11:59] LABS: Acetaminophen < 2 ug/ml (10-30); Salicylate < 1.7 mg/dl (2.8-20)
[2020-08-02 12:06] LABS: Alanine Aminotransferase 30 U/L (12-78); Albumin Globulin Ratio 1.1 (0.9-2); Albumin Level 4.3 gm/dl (3.4-5.0); Alkaline Phosphatase 100 U/L (45-117); Aspartate Aminotransferase 30 U/L (15-37); BUN Creatinine Ratio 11.3 (10-20); Bilirubin,Total 1.2 mg/dl (0.2-1); Blood Urea Nitrogen 8 mg/dl (7-18); Calcium 9.1 mg/dl (8.5-10.1); Carbon Dioxide 23 mmol/L (21-32); Chloride 100 mmol/L (98-107); Creatine Kinase 207 U/L (26-192); Creatinine Clr Calc Pharmacy 90.2 ml/min; Est GFR (Non-African American) 103.5; Globulin 3.8 gm/dl (2.5-4.0); Glucose 123 mg/dl (70-99); Lipase 235 U/L (73-393); Magnesium 2.4 mg/dl (1.8-2.4); Potassium 2.2 mmol/L (3.5-5.1); Sodium 136 mmol/L (136-145); Total Protein 8.1 gm/dl (6.4-8.2); Troponin I < 0.015 ng/ml (0-0.045)
--- NOTE | 2020-08-02 12:27 | CT Scan Report ---
HEAD CT NONCONTRAST CT DOSE: 6.92 mGycm HISTORY: Overdose TECHNIQUE: Multiaxial CT images of the head were performed without the use of intravenous contrast. A utomated exposure control was utilized for this study. A dose lowering technique was utilized adheri ng to the principles of ALARA. Comparison: None. Findings: Mild mucosal thickening within the left maxillary sinus. There is mild motion artifact. The calvarium and skull base are intact. The ventricles and sulci are within normal limits. There is no mass, hematoma, midline shift, or acute infarct. Impression: Mild motion artifact. No definite acute intracranial abnormality. ACT 112: Negative or not required by law. Electronically signed by: Anton Mcclellan M.D. 08/02/2020 12:25 PM
[2020-08-02] MEDS ORDERED: POTASSIUM CHLORIDE CRTAB 20 MEQ TABCR PO STA (12:42)
[2020-08-02 12:51] LABS: INR 1.1 (0.9-1.1); Partial Thromboplastin Ratio 0.9; Partial Thromboplastin Time 25.6 Seconds (21.0-31.0); Prothrombin Time 11.6 Seconds (9.0-12.0)
[2020-08-02] MEDS ORDERED: LORazepam 1 MG/2 ML VIAL IV STA ×5 (12:59→20:15)
[2020-08-02] MEDS: POTASSIUM CHLORIDE / WTR 10 MEQ/100 ML PLCT IV SCH ×2 (15:42→16:40)
--- NOTE | 2020-08-02 16:01 | Emergency Department Note ---
ED Visit Note Patient signed out to me by Dr. Rivera for further evaluation after receiving potassium supplementation and likely discharge after this. Patient received 40 mEq of oral potassium as well as 20 mEq of IV potassium while here. Does have a history of alcohol abuse. Alcohol level was undetectable on arrival. Patient reevaluation was alert and oriented to person. CT the head was previously complete without acute abnormalities. No significant focalities on exam. Laboratory studies again showed hypokalemia of 2.2 but no significant hypomagnesemia. EKG was reviewed as well as her medication list. Reevaluation the patient was tachycardic and tremulous. Given additional IV Ativan. Given a banana bag for additional IV thiamine and folate. Question if this is some level of alcohol withdrawal. Patient requesting stay secondary to this. Patient states she has not been eating or drinking very much and denies other drug use. Denies significant abdominal pain on exam. Laboratory recheck will be ordered and the hospitalist contacted. Patient talking to persons not in the room upon my exam thus concern for hallucinations. Patient denies a history of withdrawal seizure to me. Repeat BMP does show the hyperkalemia is improving however given her hallucinatory findings persistent tachycardia hospitalist was in agreement for further evaluation here. Diagnosis includes acute hypokalemia, alcohol withdrawal, hallucinations, akathisia . : Overdose Qualifiers: Encounter type: initial encounter Injury intent: undetermined intent Qualified Code(s): T50.904A - Poisoning by unspecified drugs, medicaments and biological substances, undetermined, initial encounter
[2020-08-02] MEDS ORDERED: POTASSIUM CHLORIDE / WTR 10 MEQ/100 ML PLCT IV ONE (17:56)
[2020-08-02] MEDS ORDERED: MULTI-VITAMIN INFUSION 10 ML, THIAMINE HCL 100 MG, FOLIC ACID 1 MG in SODIUM CHLORIDE 0... IV ONE (17:56)
--- NOTE | 2020-08-02 18:32 | History & Physical Report ---
Date of Service August 02, 2020 Assessment & Plan (1) Methamphetamine intoxication: Presents with akathisia, tachycardia, hallucinations, intermittent confusion, with feeling of euphoria and admits to abuse of home Adderall prescription. Not acidotic, not hypertensive, not violent or having any outbursts. She is cooperative and oriented x3 With significant hypokalemia, perhaps mild dehydration CPK mildly elevated Urine drug screen positive for methamphetamines. APAP and salicylate levels negative, alcohol level negative With significantly prolonged QTC on ECG of 586 Not hypoxic, not hypertensive, and no seizures witnessed here She received a total of 3 mg of IV Ativan before I saw her which did not help at all with her akathisia. I have given her 2 more milligrams of IV Ativan at the time of admission. -Admit to PCU for cardiac arrhythmia monitoring -Treating hypokalemia with replacement continue normal saline at 125 mL's per hour for hydration -Follow CMP, CPK in the morning -Follow ECG daily -Plan to treat with IV Ativan and Librium for alcohol withdrawal and for meth amphetamine overdose -Hold home Adderall and would not prescribe this again as an outpatient -Continue to observe for any evidence of cardiovascular collapse or seizures, acidosis. Try to improve agitation with Ativan as above (2) Akathisia: As above, secondary to methamphetamine overdose Treating with IV Ativan (3) Prolonged QT interval: As above, QTC 586 on admission Replacing potassium Holding all home meds which can all prolong QT to include hydroxyzine, ondansetron, Seroquel, and Celexa (4) Toxic encephalopathy: Secondary to methamphetamine overdose as well as likely alcohol withdrawal Here with hallucinations and akathisia with some confusion CT head negative, chest x-ray negative for pneumonia Treating methamphetamine overdose as above Treating for alcohol withdrawal also with benzodiazepine taper of Librium Giving banana bag daily (5) Alcohol withdrawal: Last drink possibly on 07/29 as per ER notes from that day, however at this time patient has no idea when her last drink was. Has a history of needing rehab for alcohol abuse and states that she is taking the Librium taper in the past -Start Librium taper AWSS scale as per protocol and IV Ativan as needed Banana bag daily -Encourage cessation of alcohol (6) Attention deficit disorder: Discontinue home Adderall due to overdose/misuse as above She follows with [facility] (7) Hypokalemia: Potassium 2.2 on arrival Was given a total of potassium chloride 30 mEq IV and 40 mEq p.o. potassium chloride Repeat BMP in the ER shows improved potassium 3.4 Follow BMP in the morning Follow on telemetry (8) Sinus tachycardia: Secondary to methamphetamine overdose and alcohol withdrawal Monitor on telemetry Hydrating Treating with IV Ativan as above (9) Elevated LFTs: Mildly elevated bilirubin likely due to alcohol abuse Follow LFTs in the morning (10) Anxiety: Treated by psychiatrist as above Holding home Celexa and Seroquel for now due to prolonged QT (11) Asthma: No acute issues (12) Environmental allergies: No acute issues (13) DVT prophylaxis: LORNA verde Disposition-admit to PCU History of Present Illness Primary Care Provider: NO PCP This patient is a 39-year-old female with a history of alcoholism, methamphetamine abuse, anxiety disorder, ADHD, who presented to the ER for altered mental status. There was a question of possibility of overdose with drugs, but as the patient woke up more she told the ER doctor that she had quit drinking alcohol 4 days ago. As per ER physician's report, the EMS said when they found her she was not answering questions well and was twitching all over. She reported to me that she took more of her Adderall than prescribed but cannot recall how many pills she actually took. She then was able to tell me she only took 2 or 3 Seroquel last night and only 1 celexa yesterday. SHe reports using more Adderall than what is prescribed frequently. SHe reports seeing her friend Krunal who is actually ; she reports he is in the room in the ER with her and then looks to her side and starts talking to him in front of me. She denies any suicidal ideations. She reports that she feels euphoric at times and does not know why she took extra Adderall. She denies injecting any medications or snorting any medications despite the fact that she has a hole through the nasal septum on examination. ER notes were reviewed from the visit on 07/29 where she came in with nausea and vomiting and reported that she had recently quit drinking alcohol just prior to arrival. She was found to have significant hypokalemia with potassium of 2.2 and a prolonged QTC of 580. She was in sinus tachycardia and had elevated blood pressures. She was given 3 doses of IV Ativan, along with IV fluids and p.o. and IV potassium replacement. She continued to have significant muscle fasciculations and akathisia and tachycardia and was thought to be having effects of moderate methamphetamine overdose as well as possibly some acute alcohol withdrawal. CT of the head without contrast shows no acute intracranial abnormality. Chest x-ray was negative. She will be admitted for significant hypokalemia and methamphetamine overdose as well as possible alcohol withdrawal. Allergies Allergy/AdvReac Type Severity Reaction Status Date / Time ketorolac Allergy Intermediate asthma Verified 08/02/20 14:09 flare nitrofurantoin Allergy Intermediate VOMITING Verified 08/02/20 14:09 grass pollen-perennial rye, Allergy Mild SNEEZE AND Verified 08/02/20 14:09 standar ITCHY EYES Penicillins Allergy Unknown RXN Verified 08/02/20 14:09 CHILD Home Medications Medication Instructions Recorded Confirmed Type ondansetron 4 mg PO Q6H PRN #15 tab 07/29/20 08/02/20 Rx citalopram [Celexa] 20 mg PO DAILY 08/02/20 08/02/20 History dextroamphetamine-amphetamine 10 mg PO BID 08/02/20 08/02/20 History dextroamphetamine-amphetamine 20 mg PO DAILY 08/02/20 08/02/20 History hydroxyzine HCl 25 mg PO BID PRN 08/02/20 08/02/20 History potassium chloride 20 meq PO DAILY #30 tab 08/02/20 Rx quetiapine [Seroquel] 100 mg PO HS 08/02/20 08/02/20 History Past Med/Surg History Medical History Alcohol abuse Asthma Attention deficit disorder Environmental allergies Surgical History (Updated 08/03/20 @ 00:24 by Radha Brooks MD) History of bowel resection 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, 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11 Previous section Family History (Updated 08/03/20 @ 00:14 by Radha Brooks MD) Mother Hypertension Social History (Updated 08/03/20 @ 00:15 by Radha Brooks MD) Smoking Status: Never smoker Hx Alcohol Use: Yes Alcohol type: beer Alcohol Intake Frequency: 4 or More x per/Week Alcohol Intake Frequency Comment: Daily, but she is unable to quantify how much Hx Substance Use: Yes Prescribed Medications: Other Prescribed Medications Comment: Methamphetamines Non-Prescribed Medications: Methamphetamines Preferred Language: Croatian Communication Ability: Effective Technical Information Specialist Required: No Beliefs That Will Affect Care: None marital status: Life Partner Current Living Situation: Family current occupational status: unemployed How many Children do You have: 1 Feels Safe at Home: Yes Assistive Devices: None Review of Systems Review of Systems: All systems reviewed & are unremarkable except as noted in HPI & below Physical Exam Constitutional: + ill appearing, + intoxicated appearing, + thin, + altered mental status, + behavioral limitations, + disheveled and cooperative; not combative Eyes: PERRL, conjunctivae normal, anicteric sclerae (Pupils are large but reactive) normal visual gao by confrontation; no eyelid abnormality and no nystagmus ENMT: Ears: no hearing impairment and no external ear abnormality Nose: + septum abnormality (Has a hole through the septum) Neck: trachea midline, no thyromegaly Respiratory: normal respiratory effort, lungs clear to auscultation Cardiovascular: Rate/Rhythm: regular rhythm and + tachycardic Heart Sounds: no murmur Extremities: no edema Chest (Breasts): Chest: normal inspection of chest Gastrointestinal (Abdomen): normal bowel sounds, soft, nontender, no hepatosplenomegaly Musculoskeletal: Extremities: extremities normal to inspection; no cyanosis and no clubbing Skin: no rashes, warm and dry Neurologic: CN's II-XI intact bilaterally, moves all extremities and awake; no focal motor deficits and not confused Speech / Cognition: normal speech Motor/Sensory: + abnormal movement (Constant almost choreiform movements, myotonic jerks in all limbs and trunk) Psychiatric: Orientation: alert and oriented x 3 Eye Contact: + fair eye contact Motor Behavior: + psychomotor agitation and + akathisia; n tremor Speech: normal rate/rhythm/volume of speech Affect: euthymic affect Suicidal Thoughts: denies suicidal thoughts and denies suicidal intent Hallucinations: + auditory hallucinations and + visual hallucinations Cognition: + recent memory not intact and + attention not intact Lymphatic: no lymphedema Results & Data Results & Data ([facility]) Vital Signs (Past 12 Hours) Vital Signs Temp Pulse Pulse Resp BP BP Pulse Ox 08/02/20 17:32 130 H 18 119/94 96 08/02/20 15:15 128 H 18 142/92 H 97 08/02/20 14:45 113 H 21 102/90 97 08/02/20 14:31 108 H 18 100 08/02/20 14:30 115 H 20 142/83 H 90 08/02/20 14:16 104 H 17 98 08/02/20 14:15 106 H 18 165/147 H 97 08/02/20 14:01 114 H 17 153/88 H 98 08/02/20 14:00 114 H 23 96 08/02/20 13:46 92 H 21 95 08/02/20 13:45 103 H 21 129/81 95 08/02/20 13:31 123 H 28 H 130/114 H 95 08/02/20 13:30 112 H 21 95 08/02/20 13:16 100 H 22 130/95 99 08/02/20 13:15 103 H 32 H 100 08/02/20 13:01 101 H 32 H 100 08/02/20 13:00 101 H 30 H 128/89 100 08/02/20 11:45 102 H 23 143/90 H 100 08/02/20 11:30 89 28 H 160/108 H 99 08/02/20 11:18 100 08/02/20 11:15 99 H 24 149/108 H 100 08/02/20 11:04 36.5 C 99 H 26 H 158/94 H 100 Laboratory Results 08/02/20 08/02/20 08/02/20 Range/Units 12:30 11:26 11:26 WBC (4.8-10.8) K/uL RBC (4.2-5.4) M/uL Hgb (12.0-16.0) g/dL Hct (37-47) % MCV (80-100) fL MCH (25-34) pg MCHC (32-36) g/dL RDW Std Deviation (36.4-46.3) fL RDW Coeff of Carmita (11.5-14.5) % Plt Count (130-400) K/uL MPV (7.4-10.4) fL Immature Gran % (Auto) % Neut % (Auto) % Lymph % (Auto) % [place] % (Auto) % Eos % (Auto) % Baso % (Auto) % Neut # (Auto) (1.4-6.5) K/uL Lymph # (Auto) (1.2-3.4) K/uL [place] # (Auto) (0.11-0.59) K/uL Eos # (Auto) (0-0.5) K/uL Baso # (Auto) (0-0.2) K/uL Immature Gran # (Auto) (0.00-0.02) K/uL PT 11.6 INR 1.1 APTT 25.6 PTT Ratio 0.9 Sodium (136-145) mmol/L Potassium (3.5-5.1) mmol/L Chloride (98-107) mmol/L Carbon Dioxide (21-32) mmol/L Anion Gap (3-11) BUN (7-18) mg/dl Creatinine (0.6-1.2) mg/dl Est Cr Clr Drug Dosing ml/min Est GFR ( Amer) Est GFR (Non-Af Amer) BUN/Creatinine Ratio (10-20) Glucose (70-99) mg/dl Calcium (8.5-10.1) mg/dl Magnesium (1.8-2.4) mg/dl Total Bilirubin (0.2-1) mg/dl AST (15-37) U/L ALT (12-78) U/L Alkaline Phosphatase (45-117) U/L Total Creatine Kinase (26-192) U/L Troponin I (0-0.045) ng/ml Total Protein (6.4-8.2) gm/dl Albumin (3.4-5.0) gm/dl Globulin (2.5-4.0) gm/dl Albumin/Globulin Ratio (0.9-2) Lipase (73-393) U/L HCG, Qual (Negative) Urine Color Urine Appearance (Clear) Urine pH (4.5-7.5) Ur Specific [place] (1.000-1.030) Urine Protein (Negative) Urine Glucose (UA) (Negative) Urine Ketones (Negative) Urine Blood (Negative) Urine Nitrite (Negative) Urine Bilirubin (Negative) Urine Urobilinogen (Negative) Ur Leukocyte Esterase (Negative) Salicylates (2.8-20) mg/dl Urine Opiates Screen Neg (Neg) Ur Methadone, Qual Neg (Neg) Acetaminophen (10-30) ug/ml Urine Barbiturates Neg (Neg) Ur Phencyclidine (PCP) Neg (Neg) U Amphetamines Confirm Pending U Amphetamin/Meth Scrn Pos H (Neg) U Methamphetamin Confrm Pending MDMA (Ecstasy) Screen Neg (Neg) U Benzodiazepines Scrn Neg (Neg) Ur Cocaine Metabolite Neg (Neg) U Marijuana (THC) Screen Neg (Neg) Drug Screen Comment Pending Ethyl Alcohol mg/dL (0-3) mg/dl 08/02/20 08/02/20 08/02/20 Range/Units 11:26 11:13 11:13 WBC (4.8-10.8) K/uL RBC (4.2-5.4) M/uL Hgb (12.0-16.0) g/dL Hct (37-47) % MCV (80-100) fL MCH (25-34) pg MCHC (32-36) g/dL RDW Std Deviation (36.4-46.3) fL RDW Coeff of Carmita (11.5-14.5) % Plt Count (130-400) K/uL MPV (7.4-10.4) fL Immature Gran % (Auto) % Neut % (Auto) % Lymph % (Auto) % [place] % (Auto) % Eos % (Auto) % Baso % (Auto) % Neut # (Auto) (1.4-6.5) K/uL Lymph # (Auto) (1.2-3.4) K/uL [place] # (Auto) (0.11-0.59) K/uL Eos # (Auto) (0-0.5) K/uL Baso # (Auto) (0-0.2) K/uL Immature Gran # (Auto) (0.00-0.02) K/uL PT INR APTT PTT Ratio Sodium (136-145) mmol/L Potassium (3.5-5.1) mmol/L Chloride (98-107) mmol/L Carbon Dioxide (21-32) mmol/L Anion Gap (3-11) BUN (7-18) mg/dl Creatinine (0.6-1.2) mg/dl Est Cr Clr Drug Dosing ml/min Est GFR ( Amer) Est GFR (Non-Af Amer) BUN/Creatinine Ratio (10-20) Glucose (70-99) mg/dl Calcium (8.5-10.1) mg/dl Magnesium (1.8-2.4) mg/dl Total Bilirubin (0.2-1) mg/dl AST (15-37) U/L ALT (12-78) U/L Alkaline Phosphatase (45-117) U/L Total Creatine Kinase (26-192) U/L Troponin I (0-0.045) ng/ml Total Protein (6.4-8.2) gm/dl Albumin (3.4-5.0) gm/dl Globulin (2.5-4.0) gm/dl Albumin/Globulin Ratio (0.9-2) Lipase (73-393) U/L HCG, Qual Negative (Negative) Urine Color Yellow Urine Appearance Clear (Clear) Urine pH 7.5 (4.5-7.5) Ur Specific [place] 1.007 (1.000-1.030) Urine Protein Negative (Negative) Urine Glucose (UA) Negative (Negative) Urine Ketones 1+ H (Negative) Urine Blood Negative (Negative) Urine Nitrite Negative (Negative) Urine Bilirubin Negative (Negative) Urine Urobilinogen Negative (Negative) Ur Leukocyte Esterase Negative (Negative) Salicylates (2.8-20) mg/dl Urine Opiates Screen (Neg) Ur Methadone, Qual (Neg) Acetaminophen (10-30) ug/ml Urine Barbiturates (Neg) Ur Phencyclidine (PCP) (Neg) U Amphetamines Confirm U Amphetamin/Meth Scrn (Neg) U Methamphetamin Confrm MDMA (Ecstasy) Screen (Neg) U Benzodiazepines Scrn (Neg) Ur Cocaine Metabolite (Neg) U Marijuana (THC) Screen (Neg) Drug Screen Comment Ethyl Alcohol mg/dL < 3.0 (0-3) mg/dl 08/02/20 08/02/20 08/02/20 Range/Units 11:13 11:13 11:13 WBC (4.8-10.8) K/uL RBC (4.2-5.4) M/uL Hgb (12.0-16.0) g/dL Hct (37-47) % MCV (80-100) fL MCH (25-34) pg MCHC (32-36) g/dL RDW Std Deviation (36.4-46.3) fL RDW Coeff of Carmita (11.5-14.5) % Plt Count (130-400) K/uL MPV (7.4-10.4) fL Immature Gran % (Auto) % Neut % (Auto) % Lymph % (Auto) % [place] % (Auto) % Eos % (Auto) % Baso % (Auto) % Neut # (Auto) (1.4-6.5) K/uL Lymph # (Auto) (1.2-3.4) K/uL [place] # (Auto) (0.11-0.59) K/uL Eos # (Auto) (0-0.5) K/uL Baso # (Auto) (0-0.2) K/uL Immature Gran # (Auto) (0.00-0.02) K/uL PT Cancelled INR Cancelled APTT Cancelled PTT Ratio Cancelled Sodium 136 (136-145) mmol/L Potassium 2.2 L* (3.5-5.1) mmol/L Chloride 100 (98-107) mmol/L Carbon Dioxide 23 (21-32) mmol/L Anion Gap 12.0 H (3-11) BUN 8 (7-18) mg/dl Creatinine 0.74 (0.6-1.2) mg/dl Est Cr Clr Drug Dosing 90.2 ml/min Est GFR ( Amer) 120.0 Est GFR (Non-Af Amer) 103.5 BUN/Creatinine Ratio 11.3 (10-20) Glucose 123 H (70-99) mg/dl Calcium 9.1 (8.5-10.1) mg/dl Magnesium 2.4 (1.8-2.4) mg/dl Total Bilirubin 1.2 H (0.2-1) mg/dl AST 30 (15-37) U/L ALT 30 (12-78) U/L Alkaline Phosphatase 100 (45-117) U/L Total Creatine Kinase 207 H (26-192) U/L Troponin I < 0.015 (0-0.045) ng/ml Total Protein 8.1 (6.4-8.2) gm/dl Albumin 4.3 (3.4-5.0) gm/dl Globulin 3.8 (2.5-4.0) gm/dl Albumin/Globulin Ratio 1.1 (0.9-2) Lipase 235 (73-393) U/L HCG, Qual (Negative) Urine Color Urine Appearance (Clear) Urine pH (4.5-7.5) Ur Specific [place] (1.000-1.030) Urine Protein (Negative) Urine Glucose (UA) (Negative) Urine Ketones (Negative) Urine Blood (Negative) Urine Nitrite (Negative) Urine Bilirubin (Negative) Urine Urobilinogen (Negative) Ur Leukocyte Esterase (Negative) Salicylates < 1.7 L (2.8-20) mg/dl Urine Opiates Screen (Neg) Ur Methadone, Qual (Neg) Acetaminophen < 2 L (10-30) ug/ml Urine Barbiturates (Neg) Ur Phencyclidine (PCP) (Neg) U Amphetamines Confirm U Amphetamin/Meth Scrn (Neg) U Methamphetamin Confrm MDMA (Ecstasy) Screen (Neg) U Benzodiazepines Scrn (Neg) Ur Cocaine Metabolite (Neg) U Marijuana (THC) Screen (Neg) Drug Screen Comment Ethyl Alcohol mg/dL (0-3) mg/dl 08/02/20 Range/Units 11:13 WBC 5.70 (4.8-10.8) K/uL RBC 4.43 (4.2-5.4) M/uL Hgb 11.7 L (12.0-16.0) g/dL Hct 34.8 L (37-47) % MCV 78.6 L (80-100) fL MCH 26.4 (25-34) pg MCHC 33.6 (32-36) g/dL RDW Std Deviation 44.3 (36.4-46.3) fL RDW Coeff of Carmita 15.7 H (11.5-14.5) % Plt Count 127 L (130-400) K/uL MPV 9.5 (7.4-10.4) fL Immature Gran % (Auto) 0.2 % Neut % (Auto) 76.9 % Lymph % (Auto) 17.4 % [place] % (Auto) 4.9 % Eos % (Auto) 0.2 % Baso % (Auto) 0.4 % Neut # (Auto) 4.39 (1.4-6.5) K/uL Lymph # (Auto) 0.99 L (1.2-3.4) K/uL [place] # (Auto) 0.28 (0.11-0.59) K/uL Eos # (Auto) 0.01 (0-0.5) K/uL Baso # (Auto) 0.02 (0-0.2) K/uL Immature Gran # (Auto) 0.01 (0.00-0.02) K/uL PT INR APTT PTT Ratio Sodium (136-145) mmol/L Potassium (3.5-5.1) mmol/L Chloride (98-107) mmol/L Carbon Dioxide (21-32) mmol/L Anion Gap (3-11) BUN (7-18) mg/dl Creatinine (0.6-1.2) mg/dl Est Cr Clr Drug Dosing ml/min Est GFR ( Amer) Est GFR (Non-Af Amer) BUN/Creatinine Ratio (10-20) Glucose (70-99) mg/dl Calcium (8.5-10.1) mg/dl Magnesium (1.8-2.4) mg/dl Total Bilirubin (0.2-1) mg/dl AST (15-37) U/L ALT (12-78) U/L Alkaline Phosphatase (45-117) U/L Total Creatine Kinase (26-192) U/L Troponin I (0-0.045) ng/ml Total Protein (6.4-8.2) gm/dl Albumin (3.4-5.0) gm/dl Globulin (2.5-4.0) gm/dl Albumin/Globulin Ratio (0.9-2) Lipase (73-393) U/L HCG, Qual (Negative) Urine Color Urine Appearance (Clear) Urine pH (4.5-7.5) Ur Specific [place] (1.000-1.030) Urine Protein (Negative) Urine Glucose (UA) (Negative) Urine Ketones (Negative) Urine Blood (Negative) Urine Nitrite (Negative) Urine Bilirubin (Negative) Urine Urobilinogen (Negative) Ur Leukocyte Esterase (Negative) Salicylates (2.8-20) mg/dl Urine Opiates Screen (Neg) Ur Methadone, Qual (Neg) Acetaminophen (10-30) ug/ml Urine Barbiturates (Neg) Ur Phencyclidine (PCP) (Neg) U Amphetamines Confirm U Amphetamin/Meth Scrn (Neg) U Methamphetamin Confrm MDMA (Ecstasy) Screen (Neg) U Benzodiazepines Scrn (Neg) Ur Cocaine Metabolite (Neg) U Marijuana (THC) Screen (Neg) Drug Screen Comment Ethyl Alcohol mg/dL (0-3) mg/dl Diagnostic Findings CT head noncontrast-no acute disease Chest [id number] ECG Additional Comments: ECG on 08/02/2020 at 1104 with sinus tachycardia, rate 103, some artifact but no definite ischemic changes, QTC prolonged at 586 Code Status & VTE Plan Code Status Full code VTE Prophylaxis Plan VTE Prophylaxis will be ordered: Yes PG Care Time/CCT Total # of Minutes Spent Total Time Spent with Patient: Total time spent is greater than 50% in coor dination of care (as documented) at patient's floor/unit and/or counseling patient: Coding Level of Care Code 80708 Initial Inpt Care Lvl 3 Diagnoses Methamphetamine intoxication F15.929 Akathisia G25.71 Prolonged QT interval R94.31 Toxic encephalopathy G92 Alcohol withdrawal F10.230 Complication of substance-induced condition: uncomplicated Attention deficit disorder F98.8 Hypokalemia E87.6 Sinus tachycardia R00.0 Elevated LFTs R94.5 Anxiety F41.9 Asthma J45.909 Environmental allergies Z91.09 DVT prophylaxis Z29.9 (1) Alcohol withdrawal Complication of substance-induced condition: uncomplicated Qualified Code(s): F10.230 - Alcohol dependence with withdrawal, uncomplicated
[2020-08-02 19:04] LABS: BUN Creatinine Ratio 14.6 (10-20); Calcium 7.8 mg/dl (8.5-10.1); Creatinine Clr Calc Pharmacy 99.6 ml/min; Est GFR (African American) 130.1; Est GFR (Non-African American) 112.3; Potassium 3.4 mmol/L (3.5-5.1)
[2020-08-02] MEDS ORDERED: POTASSIUM CHLORIDE / WTR 10 MEQ/100 ML PLCT IV STA (19:30)
[2020-08-02] MEDS ORDERED: chlordiazePOXIDE ALCOHOL WITHDRAWL 50MG PO STA (19:30)
[2020-08-02] MEDS: chlordiazePOXIDE HCl 25 MG CAP PO SCH (19:43)
[2020-08-02] MEDS: SODIUM CHLORIDE 0.9% 1000ML 1,000 ML IV SCH (21:04)
[2020-08-02] MEDS: LORazepam 1 MG/2 ML VIAL IV PRN (22:30)
[2020-08-03] MEDS: LORazepam 1 MG/2 ML VIAL IV PRN ×4 (00:34→22:09)
[2020-08-03] MEDS ORDERED: LORazepam 2 MG/4 ML VIAL IV STA ×2 (01:01→01:12)
[2020-08-03] MEDS ORDERED: LORazepam 3 MG/6 ML VIAL IV PRN (05:01)
[2020-08-03] MEDS ORDERED: LORazepam 2 MG/4 ML VIAL IV PRN (05:01)
[2020-08-03] MEDS ORDERED: ATIVAN IV ALCOHOL WITHDRAWL IV PRN (05:01)
[2020-08-03] MEDS ORDERED: LORazepam 1 MG/2 ML VIAL IV PRN (05:01)
[2020-08-03] MEDS: chlordiazePOXIDE HCl 25 MG CAP PO SCH ×5 (05:16→23:25)
--- NOTE | 2020-08-03 06:17 | Electrocardiogram Report ---
Test Reason : Blood Pressure : / mmHG Vent. Rate : 103 BPM Atrial Rate : 103 BPM P-R Int : 120 ms QRS Dur : 098 ms QT Int : 448 ms P-R-T Axes : 057 071 060 degrees QTc Int : 587 ms Poor data quality, interpretation may be adversely affected Sinus tachycardia Prolonged QT Abnormal ECG When compared with ECG of 04-MAY-2020 10:50, QT has lengthened Confirmed by Lee Colón ([id number]) on 08/03/2020 6:17:38 AM Referred By: REFERRED SELF Confirmed By:Lee Colón
[2020-08-03] MEDS: MULTI-VITAMIN INFUSION 10 ML, THIAMINE HCL 100 MG, FOLIC ACID 1 MG in SODIUM CHLORIDE 0... IV SCH (06:36)
[2020-08-03] MEDS ORDERED: INFLUENZA VIRUS QUAD VACCINE 0.5 ML SYR IM ONE (08:00)
[2020-08-03] MEDS ORDERED: INFLUENZA ADMINISTRATION CHARGE ONE (08:00)
[2020-08-03 08:08] LABS: Basophils # (auto) 0.01 K/uL (0-0.2); Basophils % (auto) 0.2 %; Eosinophils # (auto) 0.04 K/uL (0-0.5); Eosinophils % (auto) 0.9 %; Hematocrit (blood only) 28.5 % (37-47); Hemoglobin 9.3 g/dL (12.0-16.0); Lymphocytes # (auto) 1.77 K/uL (1.2-3.4); Lymphocytes % (auto) 38.5 %; Mean Corpuscular Hemoglobin 26.5 pg (25-34); Mean Corpuscular Hgb Conc 32.6 g/dL (32-36); Mean Corpuscular Volume 81.2 fL (80-100); Mean Platelet Volume 9.3 fL (7.4-10.4); Monocytes # (auto) 0.39 K/uL (0.11-0.59); Monocytes % (auto) 8.5 %; Neutrophils # (auto) 2.39 K/uL (1.4-6.5); Neutrophils % (auto) 51.9 %; Platelet Count 117 K/uL (130-400); RDW Coefficient of Variation 16.4 % (11.5-14.5); RDW Standard Deviation 46.5 fL (36.4-46.3); Red Blood Count 3.51 M/uL (4.2-5.4)
[2020-08-03 08:34] LABS: BUN Creatinine Ratio 8.3 (10-20); Calcium 7.3 mg/dl (8.5-10.1); Est GFR (African American) 146.3; Est GFR (Non-African American) 126.2; Magnesium 2.1 mg/dl (1.8-2.4); Potassium 3.3 mmol/L (3.5-5.1)
[2020-08-03] MEDS: SODIUM CHLORIDE 0.9% 1000ML 1,000 ML IV SCH ×3 (08:40→21:25)
[2020-08-03 08:45] LABS: Albumin Globulin Ratio 1.2 (0.9-2); Bilirubin,Total 1.4 mg/dl (0.2-1); Globulin 2.4 gm/dl (2.5-4.0); Phosphorus 2.3 mg/dl (2.5-4.9); Total Protein 5.4 gm/dl (6.4-8.2)
[2020-08-03 09:13] LABS: RBC Morphology Unremarkable
[2020-08-03] MEDS ORDERED: POTASSIUM CHLORIDE CRTAB 20 MEQ TABCR PO ONE (10:15)
--- NOTE | 2020-08-03 10:50 | Electrocardiogram Report ---
Test Reason : Blood Pressure : / mmHG Vent. Rate : 079 BPM Atrial Rate : 079 BPM P-R Int : 130 ms QRS Dur : 100 ms QT Int : 400 ms P-R-T Axes : 046 077 055 degrees QTc Int : 459 ms Normal sinus rhythm Abnormal ECG When compared with ECG of 02-AUG-2020 11:04, QT has shortened Confirmed by Ankit Hernandez ([id number]) on 08/03/2020 10:50:38 AM Referred By: REFERRED SELF Confirmed By:Romulo Hernandez
--- NOTE | 2020-08-03 16:22 | Hospitalist Progress Note ---
Date of Service August 03, 2020 Assessment & Plan (1) Methamphetamine intoxication: Fidelina Chávez is a 39-year-old female with a notable past medical history of alcohol use disorder, anxiety, ADD c/w Adderall, and migraines who presented to [facility] on 08/02 with tachycardia, confusion, akathisia, and euphoria, subsequently endorsing taking >15 Adderall over the two days preceding admission. UDS is otherwise unremarkable, as is serum EtOH. She has remained hemodynamically stable since her arrival. Methamphetamine Intoxication (from Adderall) - Clinically, patient presented with tachycardia, confusion, akathisia, and euphoria after taking >15 Adderall -- demonstrating continuous improvement since admission - Hemodynamically stable since admission without hyperthermia. Mild increase in CPK. No hypoxia. No acidosis. No seizures. Has remained cooperative and non- hostile. - UDS (+) for amphetamines, otherwise negative. Serum EtOH WNL. - ECG demonstrated prolonged QTc @ 586ms on admission --> decreased to 459ms AM of 08/03 - PCU for continuous cardiac/rhythm monitoring - Discontinue home Adderall and avoid in outpatient setting. Consider non- stimulant alternatives, if needed - Continue Ativan and Librium IV for methamphetamine intoxication and possibly ?alcohol withdrawal - NSS @ 125cc/hr Possible Alcohol Withdrawal; Alcohol Use Disorder - Patient has history of alcohol use disorder which has previously required inpatient rehab - Reports last drink >3 weeks ago on history, but did report to ER providers approx. 4 days prior to admission (for another visit) that her last drink was prior to arrival - Very mild transaminitis on admission, alongside mildly elevated TBili -- possibly attributable to AUD - AWSS while here - Librium taper - Encourage cessation and counselling as patient recovers from immediate intoxication state - NSS + IV Thiamine/Folic Acid Toxic Encephalopathy - Likely and primarily due to methamphetamine intoxication from Adderall, as above - There may also be a component of alcohol withdrawal, which is unclear at this time (see above) - Patient did report visual hallucinations, which persisted upon arrival into hospital (talking with friend) - UDS, UA, CMP, CBC, EtOH, and history otherwise non-revealing of other possible secondary causes/contributions, including infection - CT-Head without acute intracranial abnormalities - CXR without acute findings - AWSS protocol as above - NSS @ 125cc/hr Akathisia - Likely d/t methamphetamine intoxication, patient reports this is not usually present at baseline - Has been on Seroquel in past, which was noted in working-up akathisia. However, has not taken in >2 weeks - Ativan, Librium as above - Can consider Benadryl PRN Prolonged QTc (Improving) - QTc on admission at 586, subsequently improved to 459 in AM of 08/03 - Likely from stimulant intoxication -- continue to follow - Hold home meds which can prolong QTc: hydroxyzine, ondansetron, Seroquel, Annette xa - PCU for monitoring - ECGs qAM Hypokalemia - K at 2.2 upon admission --> (08/03) 3.3, s/p repletion in ED - Patient tolerating oral KCl: +20 mEq KCl PO x 1 -- 08/03 AM - BMP qAM ADD - Adderall discontinued at admission - She follows with [facility] - Consider therapeutic measures moving forward involving non-stimulant medicati ons Other Chronic Medical Problems - Anxiety: Currently holding home Celexa, Seroquel d/t QTc prolonging effects - Asthma: Clinically controlled. Dispo: PCU for cardiac arrhythmia monitoring PPX: LORNA F/E/N: Regular diet Code: Full code (2) Akathisia: (3) Prolonged QT interval: (4) Toxic encephalopathy: (5) Alcohol withdrawal: (6) Attention deficit disorder: (7) Hypokalemia: (8) Sinus tachycardia: (9) Elevated LFTs: (10) Anxiety: (11) Asthma: (12) Environmental allergies: (13) DVT prophylaxis: Admission and Anticipated Discharge Date Admission Date: August 02, 2020 Supervising Physician Co-Signing Physician Notes Resident Physician Supervision Note: I independently interviewed and examined the patient and verified the anderson history and physical, reviewed labs and image studies, discussed the case with the resident Dr. Reaves and agree with the findings and care plan. Subjective No acute events overnight. At the bedside this morning, patient is able to freely respond to all my questions. On review of her history, she tells me that she was at a friend's house last night, when she reports taking proximately 15 Adderall pillswhich she is prescribed for ADDto help improve her mood and focus. She then reports feeling confused, also hallucinatingseeing a friend of hers who is that was continuously speaking with her. When reviewing it this event with her, she denies having any thoughts or intent of harming or killing herself as a function of taking these many pills. She insists it was for focus, and she lost track of how many she was taking. She denies any other medications that she took around this time, other than her prescribed Celexa and Seroquelwhich she took as scheduled and prescribed. She further denies any recent alcohol consumption, citing her last drink approximately 3 weeks ago, but she was very proud of given previous instances of severe alcohol intoxication and history of alcohol use disorder. (On review of patient records, she was in the emergency room approximately 4 days ago for evaluation of nausea and vomiting, at that time she did report to her providers that she had a drink just prior to coming in). At the bedside, she does report feeling slightly anxious and restless, but no pain, no chest pressure, no shortness of breath. Denies any recent illnesses. Denies nausea or vomiting. Has been able to eat a little bit throughout the night. Denies any recent diarrhea, no hematochezia or melena. No hallucinations (visual, auditory, sensory) at present. Review of Systems Review of Systems: As per HPI Physical Exam Constitutional: Tired, thin, and pale appearing 39-year-old female who is lying back in her bed, demonstrating mild akathisia throughout her conversation. She has no obvious tremor in either of her hands or feet upon general impression. She is fully alert and oriented throughout our discussion, providing logical answers to my questions. Despite akathisia, she does not appear in any acute distress. Eyes: Pupils are normal in size and are equal, round, and reactive to light on both indirect and direct testing. Extraocular muscles demonstrate full range of motion. No icterus, no conjunctival injection. Neck: Neck is supple without lymphadenopathy. No appreciable goiter. Respiratory: Normal respiratory effort with symmetric expansion of the chest. Lungs are clear to auscultation bilaterally without any crackles or wheezes. Cardiovascular: Normal rate and regular rhythm. S1 and S2 are present without any murmurs rubs or gallops. Gastrointestinal (Abdomen): Normal active bowel sounds. Abdomen is soft, nontender, and nondistended. Neurologic: Cranial nerves II through XI grossly intact. Upper and lower extremity motor strength is 5 out of 5 bilaterally. Sensation to light touch is grossly intact. Upper and lower extremity reflexes are 2+ globally. No clonus. Psychiatric: Patient is fully alert and oriented. She is lying back in her hospital bed, does appear slightly diaphoretic and does demonstrate mild akathisia. Her behavior is appropriate, she makes good eye contact. Speech rate, tone, and content is intact. She denies suicidal intentions, active and passive. At the moment, she demonstrates insight into the medical implications of her decision to take too much Adderall, but does seem to have poor insight into the underlying decision making process that led to that event. Results & Data Results & Data ([facility]) Vital Signs (Past 12 Hours) Vital Signs Temp Pulse Pulse Resp BP BP Pulse Ox 08/03/20 12:37 36.9 C 83 16 118/81 96 08/03/20 08:00 83 08/03/20 07:43 36.8 C 72 18 110/60 98 08/03/20 05:04 36.6 C 81 18 128/88 97 08/03/20 04:15 79 20 141/93 H 98 Resident Activity Tracking Resident Involvement: Resident Care Provided Care Provided: Adult Hospital Medicine (1) Alcohol withdrawal Complication of substance-induced condition: uncomplicated Qualified Code(s): F10.230 - Alcohol dependence with withdrawal, uncomplicated
[2020-08-04] MEDS: LORazepam 1 MG/2 ML VIAL IV PRN ×7 (01:32→23:54)
[2020-08-04] MEDS: SODIUM CHLORIDE 0.9% 1000ML 1,000 ML IV SCH ×2 (05:12→15:24)
[2020-08-04] MEDS: chlordiazePOXIDE HCl 25 MG CAP PO SCH ×3 (06:40→21:55)
[2020-08-04 06:48] LABS: Basophils # (auto) 0.01 K/uL (0-0.2); Basophils % (auto) 0.2 %; Eosinophils # (auto) 0.08 K/uL (0-0.5); Eosinophils % (auto) 1.9 %; Hematocrit (blood only) 26.7 % (37-47); Hemoglobin 8.5 g/dL (12.0-16.0); Immature Granulocytes # (auto) 0.01 K/uL (0.00-0.02); Immature Granulocytes % (auto) 0.2 %; Lymphocytes # (auto) 2.02 K/uL (1.2-3.4); Lymphocytes % (auto) 46.8 %; Mean Corpuscular Hemoglobin 26.1 pg (25-34); Mean Corpuscular Hgb Conc 31.8 g/dL (32-36); Mean Corpuscular Volume 81.9 fL (80-100); Mean Platelet Volume 9.6 fL (7.4-10.4); Monocytes # (auto) 0.36 K/uL (0.11-0.59); Monocytes % (auto) 8.3 %; Neutrophils # (auto) 1.84 K/uL (1.4-6.5); Neutrophils % (auto) 42.6 %; Platelet Count 144 K/uL (130-400); RDW Coefficient of Variation 17.1 % (11.5-14.5); RDW Standard Deviation 48.6 fL (36.4-46.3); Red Blood Count 3.26 M/uL (4.2-5.4); White Blood Count 4.32 K/uL (4.8-10.8)
[2020-08-04 07:28] LABS: Albumin Level 2.6 gm/dl (3.4-5.0); BUN Creatinine Ratio 9.2 (10-20); Calcium 7.5 mg/dl (8.5-10.1); Creatinine Clr Calc Pharmacy 153.8 ml/min; Est GFR (African American) 147.3; Est GFR (Non-African American) 127.1; Potassium 3.2 mmol/L (3.5-5.1)
[2020-08-04 07:51] LABS: Bilirubin,Total 0.3 mg/dl (0.2-1); Globulin 2.6 gm/dl (2.5-4.0); Total Protein 5.2 gm/dl (6.4-8.2)
[2020-08-04] MEDS: MULTI-VITAMIN INFUSION 10 ML, THIAMINE HCL 100 MG, FOLIC ACID 1 MG in SODIUM CHLORIDE 0... IV SCH (08:11)
[2020-08-04] MEDS ORDERED: POTASSIUM CHLORIDE CRTAB 20 MEQ TABCR PO STA (08:12)
--- NOTE | 2020-08-04 11:01 | Hospitalist Progress Note ---
Date of Service August 04, 2020 Assessment & Plan (1) Methamphetamine intoxication: Fidelina Chávez is a 39-year-old female with a notable past medical history of alcohol use disorder, anxiety, ADD c/w Adderall, and migraines who presented to [facility] on 08/02 with tachycardia, confusion, akathisia, and euphoria, subsequently endorsing taking >15 Adderall over the two days preceding admission. UDS is otherwise unremarkable, as is serum EtOH. She has remained hemodynamically stable since her arrival. Methamphetamine Intoxication (from Adderall) - Clinically, patient presented with tachycardia, confusion, akathisia, and euphoria after taking >15 Adderall -- demonstrating continuous improvement since admission - Hemodynamically stable since admission without hyperthermia. Mild increase in CPK. No hypoxia. No acidosis. No seizures. Has remained cooperative and non- hostile. - UDS (+) for amphetamines, otherwise negative. Serum EtOH WNL. - ECG demonstrated prolonged QTc @ 586ms on admission --> decreased to 459ms AM of 08/03 and remains <470ms on 08/04 - PCU for continuous cardiac/rhythm monitoring - Discontinue home Adderall and avoid in outpatient setting. Consider non- stimulant alternatives, if needed, on outpatient basis - Continue Ativan and Librium IV for methamphetamine intoxication and possibly ?alcohol withdrawal Alcohol Withdrawal; Alcohol Use Disorder - Patient has history of alcohol use disorder which has previously required inpatient rehab - Reports last drink >3 weeks ago on history, but did report to ER providers approx. 4 days prior to admission (for another visit) that her last drink was prior to arrival - Very mild transaminitis on admission, alongside mildly elevated TBili -- possibly attributable to AUD - AWSS while here - Librium taper as above - Encourage cessation and counselling as patient recovers from immediate intoxication state - patient is considering IP rehab - patient tolerating regular diet - NSS d/c'd today - continue IV Thiamine/Folic Acid Toxic Encephalopathy - Likely and primarily due to methamphetamine intoxication from Adderall, as above - alcohol withdrawal possibly contributing as well - Patient did report visual hallucinations, which persisted upon arrival into hospital (talking with friend) - UDS, UA, CMP, CBC, EtOH, and history otherwise non-revealing of other possible secondary causes/contributions, including infection - CT-Head without acute intracranial abnormalities - CXR without acute findings - AWSS protocol as above Agitation, resolving - Likely d/t methamphetamine intoxication, patient reports this is not usually present at baseline - Has been on Seroquel in past, which was noted in working-up akathisia. However, has not taken in >2 weeks - Ativan, Librium as above - Can consider Benadryl PRN Prolonged QTc, resolving - QTc on admission at 586, subsequently improved to 459 in AM of 08/03 and remained <470 on 08/04 - Likely from stimulant intoxication -- continue to follow - Hold home meds which can prolong QTc: hydroxyzine, ondansetron, Seroquel, Celexa - PCU for monitoring - ECGs qAM Hypokalemia - K at 2.2 upon admission --> (08/03) 3.3, s/p repletion in ED - Patient tolerating oral KCl: +20 mEq KCl PO x 1 -- 08/03 AM - BMP qAM ADD - Adderall discontinued at admission - She follows with [facility] - Consider therapeutic measures moving forward involving non-stimulant medications Other Chronic Medical Problems - Anxiety: Currently holding home Celexa, Seroquel d/t QTc prolonging effects - Asthma: Clinically controlled. Dispo: PCU for cardiac arrhythmia monitoring PPX: TEDs F/E/N: Regular diet Code: Full code Admission and Anticipated Discharge Date Admission Date: August 02, 2020 Supervising Physician Co-Signing Physician Notes Resident Physician Supervision Note: I independently interviewed and examined the patient and verified the anderson history and physical, reviewed labs and image studies, discussed the case with the resident Dr. Coleman and agree with the findings and care plan. Subjective No acute events overnight. Last AWSS at midnight was 4. Alcohol withdrawal symptoms controlled with PRN Ativan and Librium taper. Reports almost completely resolved tremors and markedly improved anxiety this morning. She will talk to her mother today about inpatient rehab, but she is currently amenable to it depending on her mother's recommendations. Denies fever/chills, diaphoresis, chest pain, SOB, N/V, abdominal pain. Review of Systems Review of Systems: Pertinent positives and negatives mentioned in HPI. Physical Exam Constitutional: WD/WN, vitals as above Neck: trachea midline, no thyromegaly Respiratory: normal respiratory effort, lungs clear to auscultation Cardiovascular: RRR, no murmur, no edema Gastrointestinal (Abdomen): normal bowel sounds, soft, nontender, no hepatosplenomegaly Musculoskeletal: no cyanosis or clubbing, extremities motor strength 5/5 Skin: no rashes, warm and dry Neurologic: Motor/Sensory: no tremor Psychiatric: A+Ox3, euthymic affect Results & Data Results & Data ([facility]) Vital Signs (Past 12 Hours) Vital Signs Temp Pulse Pulse Resp BP Pulse Ox 08/04/20 08:21 36.4 C L 84 18 104/71 96 08/04/20 08:00 73 08/04/20 03:58 37.0 C 76 19 110/75 97 08/03/20 23:29 37.0 C 84 18 107/73 98 Resident Activity Tracking Resident Involvement: Resident Care Provided Care Provided: Adult Hospital Medicine
--- NOTE | 2020-08-04 13:13 | Electrocardiogram Report ---
Test Reason : Blood Pressure : / mmHG Vent. Rate : 073 BPM Atrial Rate : 073 BPM P-R Int : 116 ms QRS Dur : 098 ms QT Int : 424 ms P-R-T Axes : 023 078 028 degrees QTc Int : 467 ms Normal sinus rhythm Normal ECG When compared with ECG of 03-AUG-2020 07:51, No significant change was found Confirmed by Ankit Hernandez ([id number]) on 08/04/2020 1:12:38 PM Referred By: REFERRED SELF Confirmed By:Romulo Hernandez
[2020-08-05] MEDS: LORazepam 1 MG/2 ML VIAL IV PRN ×4 (03:06→23:31)
[2020-08-05] MEDS: chlordiazePOXIDE HCl 25 MG CAP PO SCH ×3 (06:17→21:11)
[2020-08-05 06:58] LABS: Basophils # (auto) 0.01 K/uL (0-0.2); Basophils % (auto) 0.2 %; Eosinophils # (auto) 0.08 K/uL (0-0.5); Eosinophils % (auto) 1.8 %; Hematocrit (blood only) 29.9 % (37-47); Hemoglobin 9.4 g/dL (12.0-16.0); Immature Granulocytes # (auto) 0.01 K/uL (0.00-0.02); Immature Granulocytes % (auto) 0.2 %; Lymphocytes # (auto) 2.06 K/uL (1.2-3.4); Lymphocytes % (auto) 45.8 %; Mean Corpuscular Hgb Conc 31.4 g/dL (32-36); Mean Corpuscular Volume 82.8 fL (80-100); Mean Platelet Volume 9.3 fL (7.4-10.4); Monocytes # (auto) 0.37 K/uL (0.11-0.59); Monocytes % (auto) 8.2 %; Neutrophils # (auto) 1.97 K/uL (1.4-6.5); Neutrophils % (auto) 43.8 %; Platelet Count 193 K/uL (130-400); RDW Coefficient of Variation 17.5 % (11.5-14.5); RDW Standard Deviation 50.4 fL (36.4-46.3); Red Blood Count 3.61 M/uL (4.2-5.4)
[2020-08-05 07:23] LABS: Magnesium 2.2 mg/dl (1.8-2.4); Phosphorus 2.6 mg/dl (2.5-4.9)
[2020-08-05 07:32] LABS: Amphetamine Urine, Confirm 3910 ng/mL (<250); Methamphetamine, Ur Confirm NEGATIVE ng/mL (<250)
[2020-08-05] MEDS: MULTI-VITAMIN INFUSION 10 ML, THIAMINE HCL 100 MG, FOLIC ACID 1 MG in SODIUM CHLORIDE 0... IV SCH (07:45)
[2020-08-05] MEDS: THIAMINE HCL 100 MG TAB PO SCH (09:14)
[2020-08-05] MEDS: FOLIC ACID 1 MG TAB PO SCH (09:14)
[2020-08-05] MEDS: MULTIVITAMIN TAB PO SCH (09:14)
[2020-08-05] MEDS: ACETAMINOPHEN 325 MG TAB PO PRN (12:16)
--- NOTE | 2020-08-05 12:21 | Electrocardiogram Report ---
Test Reason : Blood Pressure : / mmHG Vent. Rate : 073 BPM Atrial Rate : 073 BPM P-R Int : 132 ms QRS Dur : 096 ms QT Int : 428 ms P-R-T Axes : 051 079 056 degrees QTc Int : 471 ms Normal sinus rhythm Normal ECG When compared with ECG of 04-AUG-2020 06:35, No significant change was found Confirmed by Mark Houser ([id number]) on 08/05/2020 12:20:47 PM Referred By: REFERRED SELF Confirmed By:Mark Houser
[2020-08-05] MEDS ORDERED: MELATONIN 3 MG TAB PO PRN (17:44)
--- NOTE | 2020-08-05 19:45 | Hospitalist Progress Note ---
Date of Service August 05, 2020 Assessment & Plan (1) Methamphetamine intoxication: Fidelina Chávez is a 39-year-old female with a notable past medical history of alcohol use disorder, anxiety, ADD c/w Adderall, and migraines who presented to [facility] on 08/02 with tachycardia, confusion, akathisia, and euphoria, subsequently endorsing taking >15 Adderall over the two days preceding admission. UDS is otherwise unremarkable, as is serum EtOH. She has remained hemodynamically stable since her arrival. Methamphetamine Intoxication (from Adderall) - Clinically, patient presented with tachycardia, confusion, akathisia, and euphoria after taking >15 Adderall -- demonstrating continuous improvement since admission - Hemodynamically stable since admission without hyperthermia. Mild increase in CPK. No hypoxia. No acidosis. No seizures. Has remained cooperative and non- hostile. - UDS (+) for amphetamines, otherwise negative. Serum EtOH WNL. - ECG demonstrated prolonged QTc @ 586ms on admission --> decreased to 459ms AM of 08/03 and remains <470ms on 08/05 (451ms in the evening of 08/05) - PCU for continuous cardiac/rhythm monitoring - Discontinue home Adderall. Consider non-stimulant alternatives, if needed, on outpatient basis - Spoke with physician at [facility] on 08/05 -- anticipate resuming care with them upon d/c, hold Adderall until that time. - Continue Ativan IV and Librium for methamphetamine intoxication and possibly alcohol withdrawal - Has continued to require Ativan q2-6 hours: continue to monitor and establish anxiety goals moving forward Possible Alcohol Withdrawal; Alcohol Use Disorder - Patient has history of alcohol use disorder which has previously required inpatient rehab - Reports last drink >3 weeks ago on history, but did report to ER providers approx. 4 days prior to admission (for another visit) that her last drink was prior to arrival - Very mild transaminitis on admission, alongside mildly elevated TBili -- possibly attributable to AUD - AWSS while here - Librium taper as above - Encourage cessation and counselling as patient recovers from immediate intoxication state - patient is considering inpatient rehab - Continue IV Thiamine/Folic Acid Prolonged QTc - Resolving, 451ms on 08/05 PM - QTc on admission at 586, subsequently improved to 459 in AM of 08/03 and remained <470 on 08/05 (451ms in the evening of 08/05) - Likely from stimulant intoxication -- continue to follow - Hold home meds which can prolong QTc: hydroxyzine, ondansetron, Seroquel, Celexa - PCU for monitoring - ECGs qAM Hypokalemia - K at 2.2 upon admission --> (08/03) 3.3, s/p repletion in ED - Patient tolerating oral KCl: +20 mEq KCl PO x 1 -- 08/03 AM - BMP qAM Chest Pain - Patient intermittently reporting substernal chest pain, occasionally associated with dyspnea, that will happen randomly throughout the day, not associated with exertion - Cardiac and respiratory exams benign during each instance. Upper and lower extremity pulses 2+ and equal. Mild, unclear epigastric TTP. Normotensive and normal HR on review of vitals. - ECG x 2 on 08/05 (in AM and PM when separate episodes were happening) demonstrated no rate, rhythm, ST-T, or LBBB changes - Patient reports that this chest pain usually comes on with anxiety - Suspect this is likely due to anxiety rather than a cardiac, pulmonary, or GI- related cause. No evidence of new substance use since arrival. - Anxiety plan as below and methamphetamine intoxication plan as above - Consider PPIs/H2s PRN -- held for now - Continue PCU monitoring Toxic Encephalopathy (Resolved) - Likely and primarily due to methamphetamine intoxication from Adderall, as above - There may also be a component of alcohol withdrawal, which is unclear at this time (see above) - Patient did report visual hallucinations upon admission, which persisted upon arrival into hospital (talking with friend) - UDS, UA, CMP, CBC, EtOH, and history otherwise non-revealing of other possible secondary causes/contributions, including infection - CT-Head without acute intracranial abnormalities - CXR without acute findings - AWSS protocol as above Akathisia (Resolved) - Likely d/t methamphetamine intoxication, patient reports this is not usually present at baseline - Has been on Seroquel in past, which was noted in working-up akathisia. However, has not taken in >2 weeks - Ativan, Librium as above - Can consider Benadryl PRN ADD - Adderall discontinued at admission - She follows with [facility] -- spoke to physician on duty on 08/05, recommended continuing to follow with them moving forward and considering reducing dose of Adderall in the outpatient setting - Consider therapeutic measures moving forward involving non-stimulant medications Anxiety: Currently holding home Celexa, Seroquel d/t QTc prolonging effects. Initiated on Zoloft 25mg PO once daily on 08/05 at recommendation of [facility]. Asthma: Clinically controlled Dispo: PCU for cardiac arrhythmia monitoring PPX: TEDs F/E/N: Regular diet Code: Full code Admission and Anticipated Discharge Date Admission Date: August 02, 2020 Supervising Physician Co-Signing Physician Notes Resident Physician Supervision Note: I independently interviewed and examined the patient and verified the anderson history and physical, reviewed labs and image studies, discussed the case with the resident Dr. Reaves and agree with the findings and care plan. Subjective No acute events overnight. At the bedside this morning, patient reports feeling relatively well. She did report to her nurse that she was having intermittent chest pains, that were not associated with shortness of breath. On further questioning she does report that this chest pain is substernal and is approximately 6 out of 10 pain. She does report that she gets similar chest pains in the past when she gets anxious. She says that this pain has been going on for approximately an hour or so. EKG was obtained which demonstrated normal rhythm, rate, into no new ST-T abnormalities or bundle branch block. QTc unchanged at approximately 460-470. Telemetry did not reveal any abnormalities in the surrounding timeframe. Otherwise, does not report other discomforts. She reports that her tremulousness has significantly decreased. No abdominal pain, no nausea, no vomiting, and reports good appetite. I revisited the room at approximately 6 PM in the evening, after nursing had reported that patient was again reporting chest pain, this time associated with shortness of breath. Similarly, reports that this pain is centralized in the substernal area and does not radiate. She had been reporting to nursing that she was feeling increased anxiousness over the preceding hour or 2. Throughout our conversation together describing this chest pain, she did report that the pain was about an 8 out of 10. She believes that the shortness of breath and anxiety are related to anxiety. Repeat EKG was performed which similarly showed normal rate, normal rhythm, and no new ST-T or bundle branch block abnormalities. Several times throughout our conversation the evening, patient was asking when she could receive her Ativan. We spent significant time discussing optimization of her anxiety, especially since she has been off her citalopram upon admission. She expresses that she really wants to go home and to be home for Serafin, especially to see her son. She did show me pictures of her kids. By the end of this conversation, she did report that her chest pains and shortness of breath were improved by few points. Review of Systems Review of Systems: As per HPI. Physical Exam Constitutional: In the morning, patient did appear anxious and tired. She was alert and oriented throughout her interaction, partially engaged. Mild distress noted. In the afternoon, upon my arrival into the room, patient was in a position such that her knees were bent up towards her abdomen. Upon speaking to her she did become tearful when describing her anxiety and wanting to be out of the hospital. Mild distress again noted. Respiratory: At both times of my examination, patient's demonstrated good respiratory effort with symmetric expansion of the chest. Lungs were clear to auscultation bilaterally, with just very mild and faint wheezes heard in both lower lung gao on maximum inhalation. Cardiovascular: On both examinations, patient was noted to have a normal rate and regular rhythm, S1 and S2 present without any murmurs rubs or gallops In both upper and lower extremities, radial and dorsalis pedis pulses were found to be 2+, and equal throughout. Applies to both examinations in the evening in the morning. Gastrointestinal (Abdomen): My evening examination, patient did endorse mild epigastric discomfort. Examination of the abdomen did not reveal any distention or bloating. Abdomen was mildly tender to palpation in the epigastric region, but otherwise not in any other abdominal quadrants. Psychiatric: Aperients is appropriate for the situation. During the afternoon, behavior was significant for poor eye contact, as well as frequent requests for Ativan, interrupting our conversation. As we talked more however, her behavior became more consistent with a relaxed affect. Speech rate and tone were appropriate. Speech content was notable for the above. Describes mood as "anxious, and wanting to be home for Serafin." Affect is consistent with mood, also somewhat flat intermittently. Results & Data Results & Data ([facility]) Vital Signs (Past 12 Hours) Vital Signs Temp Pulse Pulse Resp BP BP Pulse Ox 08/05/20 19:27 37.6 C H 72 16 104/66 97 08/05/20 16:08 78 08/05/20 15:01 37.2 C 77 18 104/67 97 08/05/20 11:00 37.2 C 86 18 106/68 98 08/05/20 07:51 37.0 C 76 18 115/63 95 Resident Activity Tracking Resident Involvement: Resident Care Provided Care Provided: Adult Hospital Medicine
[2020-08-05] MEDS ORDERED: SERTRALINE HCL 50 MG TABLET PO SCH (21:00)
[2020-08-06] MEDS: ACETAMINOPHEN 325 MG TAB PO PRN (05:39)
[2020-08-06 08:08] LABS: Basophils # (auto) 0.01 K/uL (0-0.2); Basophils % (auto) 0.2 %; Eosinophils # (auto) 0.08 K/uL (0-0.5); Eosinophils % (auto) 1.8 %; Hematocrit (blood only) 29.9 % (37-47); Hemoglobin 9.5 g/dL (12.0-16.0); Immature Granulocytes # (auto) 0.01 K/uL (0.00-0.02); Immature Granulocytes % (auto) 0.2 %; Lymphocytes # (auto) 1.55 K/uL (1.2-3.4); Lymphocytes % (auto) 34.5 %; Mean Corpuscular Hemoglobin 26.2 pg (25-34); Mean Corpuscular Hgb Conc 31.8 g/dL (32-36); Mean Corpuscular Volume 82.4 fL (80-100); Mean Platelet Volume 9.7 fL (7.4-10.4); Monocytes # (auto) 0.48 K/uL (0.11-0.59); Monocytes % (auto) 10.7 %; Neutrophils # (auto) 2.36 K/uL (1.4-6.5); Neutrophils % (auto) 52.6 %; Platelet Count 269 K/uL (130-400); RDW Coefficient of Variation 17.8 % (11.5-14.5); RDW Standard Deviation 52.1 fL (36.4-46.3); Red Blood Count 3.63 M/uL (4.2-5.4); White Blood Count 4.49 K/uL (4.8-10.8)
[2020-08-06 08:47] LABS: Albumin Level 2.8 gm/dl (3.4-5.0); BUN Creatinine Ratio 17.5 (10-20); Bilirubin,Total 0.4 mg/dl (0.2-1); Calcium 7.9 mg/dl (8.5-10.1); Creatinine Clr Calc Pharmacy 108.3 ml/min; Est GFR (African American) 130.8; Est GFR (Non-African American) 112.9; Globulin 2.9 gm/dl (2.5-4.0); Potassium 3.3 mmol/L (3.5-5.1); Total Protein 5.7 gm/dl (6.4-8.2)
[2020-08-06] MEDS ORDERED: SERTRALINE HCL 50 MG TABLET PO SCH ×2 (09:00)
[2020-08-06] MEDS: THIAMINE HCL 100 MG TAB PO SCH (09:20)
[2020-08-06] MEDS: FOLIC ACID 1 MG TAB PO SCH (09:20)
[2020-08-06] MEDS: MULTIVITAMIN TAB PO SCH (09:20)
--- NOTE | 2020-08-06 09:38 | Discharge Summary ---
Date of Service August 06, 2020 Admission HPI Per Admitting Provider This patient is a 39-year-old female with a history of alcoholism, methamphetamine abuse, anxiety disorder, ADHD, who presented to the ER for altered mental status. There was a question of possibility of overdose with drugs, but as the patient woke up more she told the ER doctor that she had quit drinking alcohol 4 days ago. As per ER physician's report, the EMS said when they found her she was not answering questions well and was twitching all over. She reported to me that she took more of her Adderall than prescribed but cannot recall how many pills she actually took. She then was able to tell me she only took 2 or 3 Seroquel last night and only 1 celexa yesterday. SHe reports using more Adderall than what is prescribed frequently. SHe reports seeing her friend Krunal who is actually ; she reports he is in the room in the ER with her and then looks to her side and starts talking to him in front of me. She denies any suicidal ideations. She reports that she feels euphoric at times and does not know why she took extra Adderall. She denies injecting any medications or snorting any medications despite the fact that she has a hole through the nasal septum on examination. ER notes were reviewed from the visit on 07/29 where she came in with nausea and vomiting and reported that she had recently quit drinking alcohol just prior to arrival. She was found to have significant hypokalemia with potassium of 2.2 and a prolonged QTC of 580. She was in sinus tachycardia and had elevated blood pressures. She was given 3 doses of IV Ativan, along with IV fluids and p.o. and IV potassium replacement. She continued to have significant muscle fasciculations and akathisia and tachycardia and was thought to be having effects of moderate methamphetamine overdose as well as possibly some acute alcohol withdrawal. CT of the head without contrast shows no acute intracranial abnormality. Chest x-ray was negative. She will be admitted for significant hypokalemia and methamphetamine overdose as well as possible alcohol withdrawal. Principal Diagnosis methamphetamine intoxication (Adderall) alcohol withdrawal - alcohol use disorder Discharge Exam Constitutional At the bedside this morning, patient has a cover over her head. Upon hearing my voice, she does wake. Appears tired. Alert and oriented throughout our discussion, but does note her mood is "agitated." Mild distress appreciated throughout conversation. Eyes No scleral icterus, no conjunctival injection Respiratory Good respiratory effort with symmetric expansion of the chest. Lungs CTAB without crackles or wheezes this AM Cardiovascular NRRR. S1/S2 present without m/r/g. Palpation to the xiphoid process/epigastrum does reveal TTP, consistent with yesterday's examination. Gastrointestinal (Abdomen) NABS. Abdomen is soft and nondistended. As above - mild TTP in the xiphoid/epigastrum, but not elsewhere. No rebound or guarding. Psychiatric Appropriate appearance. Behavior is somewhat cooperative with questioning, however citing agitation secondary to be awoken. She makes minimal eye contact throughout conversation during our discussion. Non-hostile. Mild speech dragging and latency appreciated upon waking. Content is appropriate. Mood is "agitated." Affect is somewhat flat, but overall consistent with mood. Insight into reason for visit not appreciated during this conversation. Discharge Data Allergies Allergy/AdvReac Type Severity Reaction Status Date / Time ketorolac Allergy Intermediate asthma Verified 08/02/20 14:09 flare nitrofurantoin Allergy Intermediate VOMITING Verified 08/02/20 14:09 grass pollen-perennial rye, Allergy Mild SNEEZE AND Verified 08/02/20 14:09 standar ITCHY EYES Penicillins Allergy Unknown RXN Verified 08/02/20 14:09 CHILD Consultations 08/02/20 18:16 ED Decision to Admit Stat Ordered Studies 08/02/20 11:09 CT head/brain wo con Stat Hospital Course (1) Methamphetamine intoxication: Fidelina Chávez is a 39-year-old female with a notable past medical history of alcohol use disorder, anxiety, ADD c/w Adderall, and migraines who presented to [facility] on 08/02 with tachycardia, confusion, akathisia, and euphoria, subsequently endorsing taking >15 Adderall over the two days preceding admission. UDS otherwise unremarkable, as was serum EtOH; however, on further history, patient believes she may have consumed alcohol (multiple Red Omak/Day) up to three days prior to admission. Remained hemodynamically stable throughout stay Methamphetamine Intoxication (from Adderall) - Clinically, patient presented with tachycardia, confusion, akathisia, and euphoria after taking >15 Adderall -- subsequently demonstrating continuous improvement since admission - Hemodynamically stable since admission without hyperthermia. Mild increase in CPK initially. No hypoxia. No acidosis. No seizures. Has remained cooperative and non-hostile. - On multiple attempts of questioning, patient denies that overdose was due to suicidal intentions or achieving self-harm. Noted that it was to elate her mood / make her more focused while hanging out with a friend - UDS (+) for amphetamines, otherwise negative. Serum EtOH WNL. See below for AUD. - ECG demonstrated prolonged QTc @ 586ms on admission --> decreased to 459ms AM of 08/03 and remained <460 upon d/c - PCU utilized during stay for continuous cardiac rhythm monitoring - Adderall held during stay. Consider non-stimulant alternatives, if needed, on outpatient basis - Spoke with physician at [facility] on 08/05 -- per their recommendation, resumed as Adderall ER 10mg PO once daily upon d/c - Kept on Ativan IV and Librium taper utilized for methamphetamine intoxication and possibly alcohol withdrawal: - discharged on short Librium taper Possible Alcohol Withdrawal; Alcohol Use Disorder - Patient has history of alcohol use disorder which has previously required inpatient rehab - Reports last drink >3 weeks ago on history, but did report to ER providers approx. 4 days prior to admission (for another visit) that her last drink was prior to arrival - On clarification of history, patient does endorse that last drink may have been 3-4 days prior to admission, but cannot say; endorses drinking 4+ Four Omak/day - To ensure proper monitoring / treatment, will monitor and treat for presumed alcohol withdrawal - Very mild transaminitis on admission, alongside mildly elevated TBili -- likely attributable to AUD - AWSS utilized - Librium taper as above, discharged with remainder - Encouraged cessation and counselling as patient recovers from immediate intoxication state. Patient not desiring inpatient rehab at this time. Amenable to outpatient rehab after the Holidays, says she will set up independently; help offered in doing this, but declined at patient's request. - Discharged with RX for MVI, Thiamine (received IV folate/thiamine while here) Prolonged QTc - Resolving, 451ms on 08/05 PM - QTc on admission at 586, subsequently improved to 459 in AM of 08/03 and remained <460 prior to d/c (451ms in the evening of 08/05) - Likely from stimulant intoxication - Held home meds which can prolong QTc: hydroxyzine, ondansetron, Seroquel, Celexa - ECGs obtained qAM in concert with regular cardiac monitoring Hypokalemia - K at 2.2 upon admission --> 3.3 prior to d/c - Oral KCl utilized while here; consider in outpatient setting PRN Chest Pain - Patient intermittently reporting substernal chest pain, occasionally associated with dyspnea, that will happen randomly throughout the day, not associated with exertion. Patient does report receiving sternal rub prior to admission during state of AMS - Cardiac and respiratory exams benign during each instance. Upper and lower extremity pulses 2+ and equal. Mild, epigastric/xiphoid TTP. Normotensive and normal HR on review of vitals. - ECG x 2 on 08/05 (in AM and PM when separate episodes were happening) demonstrated no rate, rhythm, ST-T, or LBBB changes - Patient reports that this chest pain usually comes on with anxiety - Suspect this is likely due to anxiety and possibly costochondritis (d/t sternal rub prior to admission) rather than a cardiac, pulmonary, or GI-related cause. No evidence of new substance use since arrival. - Anxiety plan as below and methamphetamine intoxication plan as above Toxic Encephalopathy (Resolved) - Likely was due to methamphetamine intoxication from Adderall, as above, alongside a suspected component of alcohol withdrawal - Patient did report visual hallucinations upon admission, which persisted upon arrival into hospital (talking with friend) - UDS, UA, CMP, CBC, EtOH, and history otherwise non-revealing of other possible secondary causes/contributions, including infection - CT-Head without acute intracranial abnormalities - CXR without acute findings Akathisia (Resolved) - Present on presentation, patient reports they do not normally have at baseline - Suspect d/t methamphetamine intoxication and possibly alcohol withdrawal - Has been on Seroquel in past, which was noted in working-up akathisia. However, has not taken in >2 weeks for reasons unclear - Ativan and Librium utilized ADD - Adderall held throughout admission / during immediate recovery - She follows with [facility] -- spoke to physician on duty on 08/05, who recommended discharging her on Adderall ER 10mg PO daily. Counselled patient and made them aware - Consider therapeutic measures moving forward involving non-stimulant medications Anxiety - Patient reported significant bouts of anxiety throughout her stay which were sometimes associated with chest pains (see above) to her endorsement - Discontinued on Celexa upon d/c given QT prolonging concerns - Patient reports she has not taken Seroquel in >2 weeks -- did not provide a reason for why, including on repeat questioning. Held while here given this report. - Initiated on Zoloft 50mg PO qAM, to be continued as outpatient -- her psychiatrist was made aware of initiation - Continue hydroxyzine 25mg PO b.i.d. PRN for anxiety in outpatient setting per psychiatry Asthma: clinically controlled throughout stay. Patient said she did not want inhalers upon d/c ---- Outpatient guidance / notes: - Consider repeat BMP to monitor K repletion, consider suggesting oral KCl PRN - Ensure patient adherence to daily vitamins given active alcohol use disorder - Continue to work with patient in establishing goals for alcohol use disorder, including possible treatments such as naltrexone / outpatient or inpatient rehabilitation (offered here, but patient persisted in not wanting help establishing care) - Zoloft 50mg PO daily initiated while here. Recommend frequent GAD7s to monitor progress Total Time Total Time Spent Total Time Spent (In Minutes): 4 nights Total Time Includes: Examination of the Patient, Discharge Planning, Medication Reconciliation, Communication With Other Providers and Other Discharge Plan Discharge Items Patient Disposition: Home - Self-Care Reason For Visit: METHAMPHETAMINE OVERDOSE,ETOH WITHDRAWAL Discharge Diagnosis: methamphetamine intoxication alcohol withdrawal, alcohol use disorder Condition on Discharge: Good Activity: Per Instructions section Non-emergency contact: Primary Care Provider Call non-emergency contact if: you have any medication questions and your symptoms worsen Follow-up/Referrals: PCP,NO [Primary Care Provider] - Diet: Regular Addtl Attending Provider Instructions: You were seen at [facility] from 08/02 - 08/06 for evaluation of confusion and fast heart rate after ingesting a significant amount of Adderall pills ("over-dose"). Upon your arrival, you underwent monitoring and several tests to ensure your safety in light of this ingestion. During this process, you were found to have heart tracings indicative of electrical changes due to this overdose. Thankfully, by providing you fluids and repleting blood salts over your stay, this resolved. You were watched on cardiac monitoring throughout your stay to ensure this did not evolve into something more serious -- thankfully, the problem resolved prior to your discharge. Throughout your stay and on history, we did discuss the possibility of alcohol withdrawal as a possible contribution to some of your symptoms. As such -- and alongside treatment for the Adderall ingestion -- you were monitored for withdrawal symptoms and provided as-needed medication to aid your restlessness and recovery. Thankfully, you showed improvement throughout your stay -- however, you will be discharged with a small amount of some of these medications (Librium) to help "taper" you off from the dose you were on here. During your stay, we also focused on managing your anxiety -- which may have contributed to some of the symptoms you experienced in the hospital. Because your Celexa is known to contribute to the heart tracing changes described above, you were transitioned from that to Zoloft 50mg once daily. You are to continue this into the outpatient setting and follow-up with [facility] to resume care of your ADD. At the recommendation of your psychaitrist, you are to resume Adderall 10mg once daily until follow-up. You are to follow-up with a primary care doctor as soon as possible to review this visit. Further, please remember that alcohol use disorder is a condition that requires active engagement, monitoring, and treatment to navigate. We discussed rehabilitation options with you, and you stated you would like to explore this more after the Holidays. We are happy to help you arrange this. If you have questions, please feel free to reach out and we can discuss further management options. MEDICATION CHANGES / NOTES: - BEGIN Zoloft 50mg, once daily - STOP Celexa - MODIFY -- Adderall, take 10mg once daily - Continue Hydroxyzine 25mg, twice daily - Take one-time Librium taper as prescribed If you experience any severe symptoms, including chest pains, shortness of breath, feelings of like you're about to pass out, persistent nausea or vomiting, or hallucinations, please report to the ER immediately or call 911 for assistance. Addtl Supervisor Front Provider Instructions: An appointment has been arranged for you for [facility]. They will see you August 29, 2020 at 12:00. Thank you! Pending Studies at Discharge: No Stand-Alone Forms: My RawFlow, Smoking Cessation Medications and DC Order Prescriptions: New potassium chloride 20 mEq tablet extended release 20 meq PO DAILY Qty: 30 RF: 0 chlordiazepoxide HCl 10 mg Capsule 10 mg PO Q12H Qty: 4 RF: 0 sertraline 50 mg Tablet 50 mg PO QAM Qty: 30 RF: 0 Continued hydroxyzine HCl 25 mg tablet 25 mg PO BID PRN (Reason: .) RF: 0 Changed dextroamphetamine-amphetamine 10 mg tablet 10 mg PO DAILY Qty: 0 RF: 0 Discontinued ondansetron 4 mg tablet,disintegrating 4 mg PO Q6H PRN (Reason: nausea and vomiting) Qty: 15 RF: 0 citalopram [Celexa] 20 mg tablet 20 mg PO DAILY RF: 0 dextroamphetamine-amphetamine 20 mg tablet 20 mg PO DAILY RF: 0 quetiapine [Seroquel] 50 mg tablet 100 mg PO HS RF: 0 Discharge Orders: Discharge Order (Routine); Ordered 08/06/20 Ordered By: [place]ble [place]/Other Patient Handouts: Alcoholism Resources, Alcoholism: Getting Help, Alcohol Addiction, Understanding Methamphetamine ... Admission Data Admit Date/Time: 08/02/20 22:33 Attending Provider: Elsa Ovalles Admit Provider: Sole Palafox Primary Care Provider: PCP,NO Other Providers: Radha Brooks ; Sole Palafox Other Interventions: Discharge Summary Assessment (RN) Last Done: 08/06/20 10:12 Supervising Physician Co-Signing Physician Notes Resident Physician Supervision Note: I independently interviewed and examined the patient and verified the anderson history and physical, reviewed labs and image studies, discussed the case with the resident Dr. Reaves and agree with the findings and care plan. Resident Activity Tracking Resident Involvement: Resident Care Provided Care Provided: Adult Hospital Medicine
--- NOTE | 2020-08-06 16:00 | Electrocardiogram Report ---
Test Reason : Blood Pressure : / mmHG Vent. Rate : 072 BPM Atrial Rate : 072 BPM P-R Int : 122 ms QRS Dur : 100 ms QT Int : 412 ms P-R-T Axes : 049 080 052 degrees QTc Int : 451 ms Normal sinus rhythm Incomplete right bundle branch block Borderline ECG When compared with ECG of 05-AUG-2020 08:59, No significant change was found Confirmed by Mark Houser ([id number]) on 08/06/2020 3:59:55 PM Referred By: REFERRED SELF Confirmed By:Mark Houser
== END 2020-08-06 11:05 | disposition home or self-care (01) | DRG 917 ==
LOC: ED 10:59 → 2S 22:33 → SUATTDRO 22:33 → 2S 08-03 04:15

== ENCOUNTER 2025-05-29 05:36 | Inpatient (IN) ==
--- NOTE | 2025-05-29 06:15 | Emergency Department Note ---
Impression & Plan Mood disorder the case was signed out to Dr. Pulido at change of shift ED Provider Note NAME: JO MORGAN AGE: 44 SEX: Female INFORMANT: Patient ED PROVIDER(S): Joselin Oviedo DO CHIEF COMPLAINT: increasing depression PLAN: Disposition: case was signed out to Dr. Pulido at change of shift MEDICAL DECISION MAKING: This is a 44-year-old female patient who presents to the emergency department with depression and increasing anxiety. Patient states that she was recently taken off of her Prozac and switch to Pristiq. She notes that she has been laying in her bed over the past week and notes increasing anxiety. She is followed at [facility] for med management but does not see a counselor or therapist. She denies any drug or alcohol use. she denies any suicidal or homicidal thoughts. Patient was medically cleared here in the emergency department. She was initially evaluated by the ED psychiatric disease case manager rn and thought not to meet criteria for inpatient care. the patient was wishing to speak with another disease case manager rn. The oncoming disease case manager rn will meet with the patient at shift change. The case was signed out to Dr. Pulido at change of shift. patient explained that she is afraid to be alone as she is not sure that she can see can keep herself safe. Care/management discussed with: ED psychiatric disease case manager rn Triage Nursing notes: reviewed and agree with them. Vital Signs: reviewed and unremarkable Chronic Medical/Social Conditions affecting care: substance abuse disorder and mental health issues Differential Diagnosis: mood disorder, thought disorder, medication noncompliance HPI: 44 year old Female arrives for evaluation of increasing depression. patient presents with depression and increasing anxiety. Patient states that she was recently taken off of her Prozac and switch to Pristiq. She notes that she has been laying in her bed over the past week and notes increasing anxiety. She is followed at [facility] for med management but does not see a counselor or therapist. She denies any drug or alcohol use.. PAST MEDICAL HISTORY: See Below, PAST SURGICAL HISTORY: See Below, SOCIAL HISTORY: See Below, HOME MEDICATIONS: see list ALLERGIES: See Below VITALS: see list PHYSICAL EXAMINATION: HEENT: Head - normocephalic and atraumatic. Pupils are equal, round, and reactive to light. Extraocular eye muscles are intact, and sclera are anicteric. Nose - moist nasal mucosa without discharge. Mouth - moist buccal mucosa. Oropharynx is nonerythematous and there is no tonsillar exudate or edema noted. Neck: Supple; no Cervical lymphadenopathy or thyromegaly Heart: Regular rate and rhythm. There is a normal S1 and S2 with no murmurs, clicks, or gallops appreciated. Lungs: Clear to auscultation bilaterally with no wheezes, rales, or rhonchi. Abdomen: Soft, Moderately distended. The patient has a bed lying surgical scar. There is no pain to palpation. There are no palpable pulsatile masses or hepatosplenomegaly. There is no guarding, rigidity, or rebound noted. Extremities: No evidence of cyanosis, clubbing, or edema. There are easily palpable peripheral pulses. Skin: warm and dry with good turgor and no rashes. Psych: Patient has a flat affect. She denies suicidal or homicidal ideation. She denies any current drug or alcohol use. Emergency department course: The patient was evaluated in room A-6. A complete history and physical was performed. Laboratory studies were drawn as above. ED psychiatric disease case manager rn met with the patient. patient is requesting inpatient care and will be further evaluated by the oncoming disease case manager rn. Past Med/Surg History Problem List (Updated 05/29/25 @ 07:29 by Joselin Oviedo DO) Mood disorder (Acute) History of substance abuse Environmental allergies Asthma Attention deficit disorder Cervical strain (Acute) Anxiety (Acute) Lumbar back pain (Acute) Anxiety attack (Acute) Medical History Akathisia Methamphetamine intoxication Toxic encephalopathy DVT prophylaxis Hypokalemia Overdose Acute alteration in mental status Alcohol abuse Alcohol withdrawal Left against medical advice Fracture of third metacarpal bone of left hand Dental caries Elevated LFTs Surgical History History of bowel resection 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, 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11 Previous section Family History Mother Hypertension Social History Smoking Status: Never smoker Tobacco Type: Cigarettes Hx Alcohol Use: Yes Alcohol type: beer Alcohol Intake Frequency: 4 or More x per/Week Alcohol Intake Frequency Comment: Daily, but she is unable to quantify how much Hx Substance Use: Yes Prescribed Medications: Other Non-Prescribed Medications: Methamphetamines Substance Use Type Other:: unable to answer Preferred Language: Mohawk Communication Ability: Effective Traffic Engineering Director Required: No Beliefs That Will Affect Care: None marital status: Life Partner Current Living Situation: Family Current Living Situation Comment: unable to answer current occupational status: unemployed How many Children do You have: 1 Feels Safe at Home: Yes Gender Identity: Female Assistive Devices: None Allergies Allergies Allergy/AdvReac Type Severity Reaction Status Date / Time ketorolac Allergy Intermediate asthma Verified 04/21/25 18:09 flare nitrofurantoin Allergy Intermediate VOMITING Verified 05/29/25 06:29 grass pollen-perennial rye, Allergy Mild SNEEZE AND Verified 04/21/25 18:09 standar ITCHY EYES Penicillins Allergy Unknown RXN Verified 05/29/25 06:29 CHILD Home Meds Home Medications Medication Instructions Recorded Confirmed ropinirole 1 mg tablet 1 mg PO BID 03/09/25 05/29/25 trazodone 50 mg tablet 50 mg PO HS PRN Anxiety 03/09/25 05/29/25 lorazepam 0.5 mg tablet 0.5 mg PO DAILY PRN Anxiety 04/21/25 05/29/25 cetirizine 10 mg tablet 10 mg PO DAILY 05/29/25 05/29/25 desvenlafaxine succinate 25 mg 25 mg PO DAILY 05/29/25 05/29/25 tablet,extended release 24 hr Results & Data (ED) Vital Signs Vital Signs - 24 hr 05/29/25 05:40 05/29/25 05:55 Temperature 36.6 C 36.6 C Temperature Source Oral Oral Pulse Rate 76 Pulse Rate [Finger] 76 Pulse Rhythm [Finger] Regular Respiratory Rate 17 17 Respiratory Effort / Characteristics Non-Labored Spontaneous Non-Labored Spontaneous Respiratory Depth Normal Normal Respiratory Pattern Regular Regular Blood Pressure 112/75 Blood Pressure [Right Arm] 112/75 Blood Pressure Mean 87 Blood Pressure Mean [Right Arm] 87 Pulse Oximetry 99 99 Oxygen Delivery Method Room Air Room Air Sepsis Recent Fever Within 48 Hours No Sepsis New/Unexplained Change in Mental Status No Sepsis Action Taken by Nursing No Action Required Laboratory Data 05/29/25 05:52 05/29/25 05:52 Lab Results 05/29/25 05/29/25 05/29/25 Range/Units 05:40 05:50 05:52 WBC 4.69 L (4.8-10.8) K/ul RBC 4.42 (4.20-5.40) M/uL Hgb 12.2 (12.0-16.0) g/dl Hct 37.3 (37.0-47.0) % MCV 84.4 (80.0-100.0) fL MCH 27.6 (25.0-34.0) pg MCHC 32.7 (32.0-36.0) g/dL RDW Std Deviation 41.0 (36.4-46.3) fL RDW Coeff of Carmita 13.2 (11.5-14.5) % Plt Count 336 (130-400) K/uL MPV 9.7 (9.4-12.4) fL Immature Gran % (Auto) 0.2 % Neut % (Auto) 29.7 % Lymph % (Auto) 61.4 % [place] % (Auto) 6.0 % Eos % (Auto) 2.1 % Baso % (Auto) 0.6 % Neut # (Auto) 1.39 L (1.40-6.50) K/uL Lymph # (Auto) 2.88 (1.20-3.40) K/uL [place] # (Auto) 0.28 (0.11-0.59) K/uL Eos # (Auto) 0.10 (0.00-0.50) K/uL Baso # (Auto) 0.03 (0.00-0.20) K/uL Immature Gran # (Auto) 0.01 (0.01-0.20) K/uL Sodium 138 (136-145) mmol/L Potassium 3.3 L (3.5-5.1) mmol/L Chloride 105 (98-107) mmol/L Carbon Dioxide 26 (21-32) mmol/L Anion Gap 7 (3-11) BUN 7 (6-23) mg/dl Creatinine 0.71 (0.6-1.2) mg/dl Est Cr Clr Drug Dosing 92.9 ml/min eGFR 108.80 BUN/Creatinine Ratio 9.9 L (10-20) Glucose 87 (70-99(Fasting)) mg/dl Calcium 8.9 (8.6-10.3) mg/dl Total Bilirubin 0.5 (0.2-1.0) mg/dl AST 17 (13-39) U/L ALT 10 (7-52) U/L Alkaline Phosphatase 84 (34-104) U/L Total Protein 6.9 (6.0-8.3) gm/dl Albumin 4.2 (3.4-5.0) gm/dl Globulin 2.7 (2.5-4.0) gm/dl Albumin/Globulin Ratio 1.6 (0.9-2) TSH 3.058 (0.300-4.500) uIu/ml Urine Color Yellow Urine Appearance Cloudy A (Clear) Urine pH 5.5 (4.5-7.5) Ur Specific [place] 1.018 (1.000-1.030) Urine Protein Negative (Negative) Urine Glucose (UA) Negative (Negative) Urine Ketones Trace H (Negative) Urine Blood 3+ H (Negative) Urine Nitrite Negative (Negative) Urine Bilirubin Negative (Negative) Urine Urobilinogen Negative (Negative) Ur Leukocyte Esterase Trace H (Negative) Urine WBC (Auto) 6-10 H (0-5) /hpf Urine RBC (Auto) 3-5 H (0-2) /hpf U Hyaline Cast (Auto) 6-10 H (0-2) /lpf U Epithel Cells (Auto) 11-20 H (0-2) /hpf Urine Bacteria (Auto) 4+ H (None Seen) Urine Test Negative (Negative) Urine Comment Salicylates < 3.0 L (3.0-30) mg/dl Urine Opiates Screen Neg (Neg) Ur Methadone, Qual Neg (Neg) Urine Fentanyl Screen Neg (Neg) Acetaminophen < 3 L (10-30) ug/ml Urine Barbiturates Neg (Neg) Ur Phencyclidine (PCP) Neg (Neg) U Amphetamin/Meth Scrn Neg (Neg) MDMA (Ecstasy) Screen Neg (Neg) U Benzodiazepines Scrn Neg (Neg) Ur Cocaine Metabolite Neg (Neg) U Marijuana (THC) Screen Neg (Neg) Ethyl Alcohol mg/dL < 10.0 (<10.0) mg/dl SARS-CoV-2, RNA, NAAT NEGATIVE (NEGATIVE) Discharge Plan Visit Data Chief Complaint: Mental Health Evaluation Stated Complaint: INCREASED DEPRESSION, WANTS CHECKED OUT ED Provider: Yovani Pulido Discharge Problem: Mood disorder Condition: Fair Forms Stand Alone Forms: My [facility], Suicide Prevention Resources Prescriptions Prescriptions: No Action lorazepam 0.5 mg Tablet 0.5 mg PO DAILY PRN (Reason: Anxiety) cetirizine 10 mg tablet 10 mg PO DAILY desvenlafaxine succinate 25 mg tablet extended release 24 hr 25 mg PO DAILY trazodone 50 mg Tablet 50 mg PO HS PRN (Reason: Anxiety) ropinirole 1 mg Tablet 1 mg PO BID Rx Instructions: 1 tab in morning and hs Referrals Referrals: David Elliott MD [Primary Care Provider] -
[2025-05-29 06:21] LABS: Hematocrit (blood only) 37.3 % (37.0-47.0); Hemoglobin 12.2 g/dl (12.0-16.0); Mean Corpuscular Hemoglobin 27.6 pg (25.0-34.0); Mean Corpuscular Volume 84.4 fL (80.0-100.0); Platelet Count 336 K/uL (130-400); RDW Standard Deviation 41.0 fL (36.4-46.3); Red Blood Count 4.42 M/uL (4.20-5.40); White Blood Count 4.69 K/ul (4.8-10.8)
[2025-05-29 06:36] LABS: Appearance Urine Cloudy (Clear); Bacteria Urine Automated 4+ (None Seen); Glucose Urine UA Negative (Negative)
[2025-05-29 06:38] LABS: Alanine Aminotransferase 10.0 U/L (7-52); Albumin Globulin Ratio 1.6 (0.9-2); Albumin Level 4.2 gm/dl (3.4-5.0); Alkaline Phosphatase 84.0 U/L (34-104); Anion Gap 7.0 (3-11); Bilirubin,Total 0.5 mg/dl (0.2-1.0); Blood Urea Nitrogen 7.0 mg/dl (6-23); Calcium 8.9 mg/dl (8.6-10.3); Carbon Dioxide 26.0 mmol/L (21-32); Chloride 105.0 mmol/L (98-107); Creatinine Clr Calc Pharmacy 92.9 ml/min; Globulin 2.7 gm/dl (2.5-4.0); Glucose 87.0 mg/dl (70-99(Fasting)); Potassium 3.3 mmol/L (3.5-5.1); Sodium 138.0 mmol/L (136-145); Total Protein 6.9 gm/dl (6.0-8.3)
[2025-05-29 06:47] LABS: Acetaminophen < 3 ug/ml (10-30); Salicylate < 3.0 mg/dl (3.0-30)
[2025-05-29 06:52] LABS: Thyroid Stimulating Hormone 3.058 uIu/ml (0.300-4.500)
[2025-05-29 07:05] LABS: Amphetamines+Metham, Urine Neg (Neg); MDMA (Ecstacy), Urine Neg (Neg); Marijuana, Urine Neg (Neg)
[2025-05-29 07:10] LABS: Immature Granulocytes # (auto) 0.01 K/uL (0.01-0.20); Immature Granulocytes % (auto) 0.2 %
[2025-05-29] MEDS: CETIRIZINE HCL 10 MG TABLET PO SCH (09:12)
[2025-05-29] MEDS: LORazepam 0.5 MG TAB PO PRN ×2 (09:14→17:02)
[2025-05-29] MEDS ORDERED: MAGNESIUM HYDROXIDE SUSP 30 ML UDC PO PRN (09:28)
[2025-05-29] MEDS ORDERED: ALUMINUM/MAGNESIUM SUSP 30 ML UDC PO PRN (09:28)
[2025-05-29] MEDS ORDERED: BISMUTH SUBSALICYLATE 262 MG CHEW PO PRN (09:28)
[2025-05-29] MEDS ORDERED: SODIUM CHLORIDE 0.65% NA SOLN 45 ML (OCEAN) PRN (09:28)
--- NOTE | 2025-05-29 09:41 | Emergency Department Note ---
ED Visit Note The patient was signed out from Dr. Oviedo. This is a 44-year-old female with a history of anxiety and mood disorder presenting for crisis assessment. Patient called crisis but no criteria for inpatient was noted. She adamantly declines suicidal or homicidal ideations. She follows with [facility] with recent medication changes. I did order the pat ient's home medications. She is medically cleared. Patient being evaluated by inpatient psychiatry team for possible voluntary admission. 201 signed with the patient as she was accepted at [facility]. .
[2025-05-29] MEDS ORDERED: LORazepam 0.5 MG TAB PO PRN (13:11)
[2025-05-29] MEDS: ACETAMINOPHEN 325 MG TAB PO PRN (14:53)
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
[2025-05-29] MEDS: CEROVITE ADV FORMULA TAB PO SCH (17:02)
[2025-05-29] MEDS: LIDOCAINE 5% 1 PATCH TD SCH (18:30)
[2025-05-29] MEDS: SULFAMETHOXAZOLE/TRIMETHOPRIM DS 800/160MG TAB PO SCH (20:15)
[2025-05-29] MEDS: GABAPENTIN 100 MG CAP PO PRN (20:18)
[2025-05-29] MEDS: REMOVE LIDODERM PATCH SCH (20:19)
[2025-05-29] MEDS ORDERED: GABAPENTIN 100 MG CAP PO SCH (21:00)
[2025-05-30] MEDS: ADVANCED PROBIOTIC 625 MG CAPSULE PO SCH (08:36)
[2025-05-30] MEDS: FERROUS SULFATE 325 MG TAB PO SCH (08:37)
[2025-05-30] MEDS: CETIRIZINE HCL 10 MG TABLET PO SCH (08:38)
[2025-05-30] MEDS ORDERED: CEROVITE ADV FORMULA TAB PO SCH (09:00)
--- NOTE | 2025-05-30 09:23 | Psychiatric Progress Note ---
Date of Service May 30, 2025 Impression / Recommendations Impression JO MORGAN is a 44-year-old woman who currently lives in [place] with her mom, has a history of depression, anxiety, ADHD and was admitted on 05/29/25 09:28 on a 201 voluntary commitment for depression and anxiety with inability to attend to ADLs including not getting out bed. Diagnostically consistent with unspecified depression and anxiety with differential including major depressive disorder with anxious distress (low motivation, decreased energy, increased irritability, sleep difficulty, decreased appetite, helplessness, loneliness, self-harm thoughts, guilt, shame) vs PTSD vs acute exacerbation of cluster B traits vs symptoms secondary to UTI as well as generalized anxiety disorder with panic attacks, PTSD, alcohol use disorder in sustained remission, insomnia and suspected ADHD. Her labwork was notable for elevated WBC, UA with ketones/blood/leuk esterase/ WBCs/4+ bacteria, and low K+. A: Some mood improvement today, tolerating medication changes so far. Symptom questionnaires notable for positive [place] screen, negative mood disorder quetsionnaire, PHQ-9 score of 15, SIM-7 score of 12. She denies increased anxiety from Wellbutrin, slightly more organized thought process today. Low Vit D so will start supplementation for this. Iron levels were not low but given RLS will continue with iron supplementation for now. Potassium improved. Discussed borderline personality disorder/cluster B traits and importance of therapy as part of her ongoing treatment as this may be as beneficial as medication if some of her symptoms are due to BPD. Overall, I spent a total of 38 minutes on this case including meeting with the patient, reviewing the chart, nursing report, multidisciplinary team meeting, orders, and documentation. (1) Depression: (2) Generalized anxiety disorder with panic attacks: (3) Post traumatic stress disorder (PTSD): (4) Insomnia: (5) Attention deficit disorder: (6) Alcohol use disorder, severe, in sustained remission: (7) Lumbar back pain: (8) Urinary tract infection: Plan 05/30/2025: -Start Vit D supplementation 15mcg daily 05/29/2025: The patient was admitted to the [facility] ([facility] unit) on q15 min checks (behavioral with suicide precautions) for safety. The patient will participate in group, recreational, and milieu therapies and will be offered additional individual and family sessions as clinically appropriate. -Start Wellbutrin Xl 150mg daily tomorrow -Increase Trazodone 100mg HS -Decreased ropinirole to 1mg HS -Start gabapentin 100mg TID prn for RLS/anxiety -Continue prior to admission Ativan 0.5mg BID prn for anxiety/panic attacks -Start Iron supplementation for RLS -Start bactrim 800mg BID for 3 days for UTI -Start probiotic and multivitamin -Labwork for iron levels, Vit D, recheck K+ -Symptom questionnaires provided -SW to explore options for outpatient therapy Inventory Assets Strengths: supportive relationships, willing to get treatment Needs: safety and stabilization, medication adjustment, additional coping skills, increased outpatient services Suicide Risk Level Suicide Risk Level: Moderate (q15 min suicide checks) (denies SI but increased depression and self-harm urges, feels safe in the hospital and feels able to ask for support) Risk Factors Assessment Male: No : Yes Do You Have Access To A Gun?: No Health Problems: Yes Mental Health Diagnoses: Yes Substance Use Disorders: No Previous Attempt: No Family History of Suicide: No Previous Psychiatric Hospitalization: Yes Hopelessness: No Protective Factors Assessment Employed: No Stable Relationships: Yes Supportive Family: Yes Interval History Identifying Information JO MORGAN is a 44-year-old woman who currently lives in [place] with her mom, has a history of depression, anxiety, ADHD and was admitted on 05/29/25 09:28 on a 201 voluntary commitment for depression and anxiety with inability to attend to ADLs including not getting out bed. Chief Complaint "I'm being more social, this is more like who I usually am". Review of Systems Sleep Information Total Hours of Sleep: 7.75 Meal Information Percent Meal Consumed - Lunch: 75 Percent Meal Consumed - Dinner: 25 Subjective Subjective Patient was seen & assessed and interval progress reviewed with treatment team. She attended one group yesterday but otherwise isolative. Asked for ativan prn first thing this morning. Today she reports feeling more social and more like herself. She slept well with the increased trazodone, felt a little groggy this morning but it resolved quickly. She likes the Wellbutrin, feels it helps with her mood. She denies any Pristiq withdrawal symptoms. We discussed her symptom questionnaires and labwork results. She denies any restless leg symptoms even on lower dose of ropinirole and she's glad we are tapering this. Physical Exam Psychiatric Orientation: alert and oriented x 3 Apperance: appropriately dressed and appropriately groomed Eye Contact: good eye contact Motor Behavior: no abnormal motor movements Speech: normal rate/rhythm/volume of speech Affect: + constricted affect Mood: + depressed mood Thought Process: + circumstantial thought process Thought Content: reality based without delusions Suicidal Thoughts: denies suicidal thoughts, denies suicidal plan and denies suicidal intent Homicidal Thoughts: denies homicidal thoughts Hallucinations: no auditory hallucinations and no visual hallucinations Cognition: recent memory grossly intact, remote memory grossly intact and langua ge grossly intact; + attention not intact Insight: + fair insight Judgment: + limited judgement Vital Signs (Past 24 Hours) Last Vital Signs Temp 36.8 C 05/30/25 06:30 Pulse 80 05/30/25 06:31 Resp 16 05/30/25 06:30 BP 94/65 L 05/30/25 06:31 Pulse Ox 99 05/29/25 10:49 O2 Del Method Room Air 05/29/25 10:49 Results & Data ([facility]) Current Inpatient Medications Current Inpatient Medications: Current Inpatient Medications Acetaminophen (Acetaminophen 325 Mg Tab) 650 mg PO Q4H PRN PRN Reason: Headache or Minor Fever Stop: 06/28/25 09:27 Last Admin: 05/29/25 14:53 Dose: 650 mg Al Hydrox/Mg Hydrox/Simethicone (Aluminum/Magnesium Susp 30 Ml Udc) 30 ml PO Q4H PRN PRN Reason: GI Upset Stop: 06/28/25 09:27 Bismuth Subsalicylate (Bismuth Subsalicylate 262 Mg Chew) 2 tab PO Q30M PRN PRN Reason: Loose Stool/Diarrhea Stop: 06/28/25 09:27 Bupropion HCl (Bupropion Xl 150 Mg Tabcr) 150 mg PO QAM BEST Stop: 06/29/25 08:59 Last Admin: 05/30/25 09:04 Dose: 150 mg Cetirizine HCl (Cetirizine Hcl 10 Mg Tablet) 10 mg PO DAILY BEST Stop: 06/29/25 08:59 Last Admin: 05/30/25 08:38 Dose: 10 mg Ferrous Sulfate (Ferrous Sulfate 325 Mg Tab) 325 mg PO QAM BEST Stop: 06/29/25 08:59 Last Admin: 05/30/25 08:37 Dose: 325 mg Gabapentin (Gabapentin 100 Mg Cap) 100 mg PO TID PRN PRN Reason: restless legs/anxiety Stop: 06/28/25 20:59 Last Admin: 05/30/25 08:35 Dose: 100 mg Hydroxyzine HCl (Hydroxyzine Hcl 25 Mg Tab) 50 mg PO HSZ PRN PRN Reason: Insomnia Stop: 06/28/25 09:27 Hydroxyzine HCl (Hydroxyzine Hcl 25 Mg Tab) 25 mg PO Q4H PRN PRN Reason: Anxiety Stop: 06/28/25 09:27 Lactobacillus Acidophilus (Advanced Probiotic 625 Mg Capsule) 1,250 mg PO DAILY BEST Stop: 06/29/25 08:59 Last Admin: 05/30/25 08:36 Dose: 1,250 mg Lidocaine (Lidocaine 5% 1 Patch) 1 patch TD QAM BEST Stop: 06/28/25 15:59 Last Admin: 05/30/25 08:38 Dose: 1 patch Lorazepam (Lorazepam 0.5 Mg Tab) 0.5 mg PO BID PRN PRN Reason: panic attacks Stop: 06/28/25 13:10 Last Admin: 05/30/25 08:35 Dose: 0.5 mg Magnesium Hydroxide (Magnesium Hydroxide Susp 30 Ml Udc) 30 ml PO DAILY PRN PRN Reason: Constipation Stop: 06/28/25 09:27 Miscellaneous (Remove Lidoderm Patch) 1 each N/A DAILY@2100 BEST Stop: 06/28/25 20:59 Last Admin: 05/29/25 20:19 Dose: Not Given Multivitamins/Minerals (Cerovite Adv Formula Tab) 1 tab PO QAM BEST Stop: 06/28/25 15:59 Last Admin: 05/30/25 08:36 Dose: 1 tab Ropinirole HCl (Ropinirole Hcl 1 Mg Tablet) 1 mg PO HS BEST Stop: 06/29/25 21:59 Sodium Chloride (Sodium Chloride 0.65% Na Soln 45 Ml ([place])) 1 - 2 sprays NA PRN PRN PRN Reason: Nasal Dryness/Congestion Stop: 06/28/25 09:27 Trazodone HCl (Trazodone Hcl 100 Mg Tab) 100 mg PO HS BEST Stop: 06/28/25 21:59 Last Admin: 05/29/25 20:15 Dose: 100 mg Trimethoprim/Sulfamethoxazole (Sulfamethoxazole/Trimethoprim Ds 800/160mg Tab) 1 tab PO BID BEST Stop: 06/01/25 09:01 Last Admin: 05/30/25 08:36 Dose: 1 tab Mental Health & Subst Abuse Tx Psychiatrist Date Of Appointment With Psychiatric Provider: 06/01/25 Time of Appointment with Psychiatrist: [id number] Therapist Name of Therapist: Cee Generation Engineering Technologist Name of Generation Engineering Technologist: Marisa OLEA Post Discharge Appointments Primary Care Physician Name Of Family Doctor/PCP: Dr. David Gilbert
[2025-05-30 11:51] LABS: Iron 238.0 mcg/dl (35-150); Potassium 3.9 mmol/L (3.5-5.1); Total Iron Binding Cap Calc 322.0 mcg/dl (250-450); Transferrin 230.0 mg/dl (200-360); Transferrin (FE) Percent Satur 74.0 % (15-50)
[2025-05-31 07:05] VITALS: RESP 18
[2025-05-31] MEDS: CHOLECALCIFEROL 10 MCG (400 UNITS) TAB PO SCH (08:28)
--- NOTE | 2025-05-31 09:09 | Psychiatric Progress Note ---
Date of Service May 31, 2025 Impression / Recommendations Impression JO MORGAN is a 44-year-old woman who currently lives in [place] with her mom, has a history of depression, anxiety, ADHD and was admitted on 05/29/25 09:28 on a 201 voluntary commitment for depression and anxiety with inability to attend to ADLs including not getting out bed. Diagnostically consistent with unspecified depression and anxiety with differential including major depressive disorder with anxious distress (low motivation, decreased energy, increased irritability, sleep difficulty, decreased appetite, helplessness, loneliness, self-harm thoughts, guilt, shame) vs PTSD vs acute exacerbation of cluster B traits vs symptoms secondary to UTI as well as generalized anxiety disorder with panic attacks, PTSD, alcohol use disorder in sustained remission, insomnia and suspected ADHD. Her labwork was notable for elevated WBC, UA with ketones/blood/leuk esterase/ WBCs/4+ bacteria, and low K+. A: Mood continues to improve, had some difficulty sleeping but attended groups with significant staff encouragement. Feels safe. Starting omega 3 fatty acids per her request given limited data of potential small benefit for depression and ADHD. Back pain improving. Overall, I spent a total of 36 minutes on this case including meeting with the patient, reviewing the chart, nursing report, multidisciplinary team meeting, orders, and documentation. (1) Depression: (2) Generalized anxiety disorder with panic attacks: (3) Post traumatic stress disorder (PTSD): (4) Insomnia: (5) Attention deficit disorder: (6) Alcohol use disorder, severe, in sustained remission: (7) Lumbar back pain: (8) Urinary tract infection: Plan 05/31/2025: -Start omega 3 fatty acid supplement 05/30/2025: -Start Vit D supplementation 15mcg daily 05/29/2025: The patient was admitted to the [facility] ([facility] health unit) on q15 min checks (behavioral with suicide precautions) for safety. The patient will participate in group, recreational, and milieu therapies and will be offered additional individual and family sessions as clinically appropriate. -Start Wellbutrin Xl 150mg daily tomorrow -Increase Trazodone 100mg HS -Decreased ropinirole to 1mg HS -Start gabapentin 100mg TID prn for RLS/anxiety -Continue prior to admission Ativan 0.5mg BID prn for anxiety/panic attacks -Start Iron supplementation for RLS -Start bactrim 800mg BID for 3 days for UTI -Start probiotic and multivitamin -Labwork for iron levels, Vit D, recheck K+ -Symptom questionnaires provided -SW to explore options for outpatient therapy Inventory Assets Strengths: supportive relationships, willing to get treatment Needs: safety and stabilization, medication adjustment, additional coping skills, increased outpatient services Suicide Risk Level Suicide Risk Level: Low (q15 min observation checks) (denies SI, mood improved, feels safe in the hospital and feels able to ask for support) Risk Factors Assessment Male: No : Yes Do You Have Access To A Gun?: No Health Problems: Yes Mental Health Diagnoses: Yes Substance Use Disorders: No Previous Attempt: No Family History of Suicide: No Previous Psychiatric Hospitalization: Yes Hopelessness: No Protective Factors Assessment Employed: No Stable Relationships: Yes Supportive Family: Yes Interval History Identifying Information JO MORGAN is a 44-year-old woman who currently lives in [place] with her mom, has a history of depression, anxiety, ADHD and was admitted on 05/29/25 09:28 on a 201 voluntary commitment for depression and anxiety with inability to attend to ADLs including not getting out bed. Chief Complaint "I didn't sleep as well, I had vivid dreams and night terrors". Review of Systems Sleep Information Total Hours of Sleep: 6 Sleep Comments: took PRN Ativan and Gabapentin Meal Information Percent Meal Consumed - Breakfast: 100 Percent Meal Consumed - Lunch: 100 Percent Meal Consumed - Dinner: 75 Subjective Subjective Patient was seen & assessed and interval progress reviewed with nursing and social work. Attended a few groups but declined many others. Had asked for both doses of prn ativan early in the day. Then asked for prn ativan right after midnight. Today she reports difficulty sleeping due to night terrors which she has intermittently. Discussed limitations in treating this with medication due to her blood pressure typically being low. She wonders about increasing the ativan, reviewed why I felt this was not appropriate (substance use history, concern for using activating and sedating medications). Overall she feels her mood continues to improve noting "I feel almost like myself again" and is glad to have stopped the Pristiq. She denies SI. Is motivated for therapy to work on her anxiety and PTSD symptoms. Continues to find the Wellbutrin helpful. Asks about starting omega 3 fatty acid supplement as she took this in the past with good benefit. Physical Exam Psychiatric Orientation: alert and oriented x 3 Apperance: appropriately dressed and appropriately groomed Eye Contact: good eye contact Motor Behavior: no abnormal motor movements Speech: normal rate/rhythm/volume of speech Affect: euthymic affect Mood: + anxious mood Thought Process: goal directed thought process Thought Content: reality based without delusions Suicidal Thoughts: denies suicidal thoughts, denies suicidal plan and denies suicidal intent Homicidal Thoughts: denies homicidal thoughts Hallucinations: no auditory hallucinations and no visual hallucinations Cognition: recent memory grossly intact, remote memory grossly intact and language grossly intact; + attention not intact (not as easily distracted) Insight: + fair insight Judgment: + fair judgement Vital Signs (Past 24 Hours) Last Vital Signs Temp 36.4 C L 05/31/25 07:03 Pulse 92 H 05/31/25 07:03 Resp 18 05/31/25 07:03 BP 76/52 L 05/31/25 07:05 Pulse Ox 96 05/31/25 07:03 O2 Del Method Room Air 05/31/25 07:03 Results & Data ([facility]) Laboratory Results Laboratory Results - last 24 hr 05/30/25 10:53 Potassium 3.9 Iron 238 H TIBC 322 Transferrin 230 Transferrin % Sat 74 H 25-OH Vitamin D Total 27.0 L Current Inpatient Medications Current Inpatient Medications: Current Inpatient Medications Acetaminophen (Acetaminophen 325 Mg Tab) 650 mg PO Q4H PRN PRN Reason: Headache or Minor Fever Stop: 06/28/25 09:27 Last Admin: 05/30/25 14:10 Dose: 650 mg Al Hydrox/Mg Hydrox/Simethicone (Aluminum/Magnesium Susp 30 Ml Udc) 30 ml PO Q4H PRN PRN Reason: GI Upset Stop: 06/28/25 09:27 Bismuth Subsalicylate (Bismuth Subsalicylate 262 Mg Chew) 2 tab PO Q30M PRN PRN Reason: Loose Stool/Diarrhea Stop: 06/28/25 09:27 Bupropion HCl (Bupropion Xl 150 Mg Tabcr) 150 mg PO QAM BEST Stop: 06/29/25 08:59 Last Admin: 05/31/25 08:27 Dose: 150 mg Cetirizine HCl (Cetirizine Hcl 10 Mg Tablet) 10 mg PO DAILY BEST Stop: 06/29/25 08:59 Last Admin: 05/31/25 08:27 Dose: 10 mg Ferrous Sulfate (Ferrous Sulfate 325 Mg Tab) 325 mg PO QAM BEST Stop: 06/29/25 08:59 Last Admin: 05/31/25 08:28 Dose: 325 mg Gabapentin (Gabapentin 100 Mg Cap) 100 mg PO TID PRN PRN Reason: restless legs/anxiety Stop: 06/28/25 20:59 Last Admin: 05/31/25 05:05 Dose: 100 mg Hydroxyzine HCl (Hydroxyzine Hcl 25 Mg Tab) 50 mg PO HSZ PRN PRN Reason: Insomnia Stop: 06/28/25 09:27 Hydroxyzine HCl (Hydroxyzine Hcl 25 Mg Tab) 25 mg PO Q4H PRN PRN Reason: Anxiety Stop: 06/28/25 09:27 Lactobacillus Acidophilus (Advanced Probiotic 625 Mg Capsule) 1,250 mg PO DAILY [facility] Stop: 06/29/25 08:59 Last Admin: 05/31/25 08:28 Dose: 1,250 mg Lidocaine (Lidocaine 5% 1 Patch) 1 patch TD QAM [facility] Stop: 06/28/25 15:59 Last Admin: 05/31/25 08:34 Dose: 1 patch Lorazepam (Lorazepam 0.5 Mg Tab) 0.5 mg PO BID PRN PRN Reason: panic attacks Stop: 06/28/25 13:10 Last Admin: 05/31/25 00:45 Dose: 0.5 mg Magnesium Hydroxide (Magnesium Hydroxide Susp 30 Ml Udc) 30 ml PO DAILY PRN PRN Reason: Constipation Stop: 06/28/25 09:27 Miscellaneous (Remove Lidoderm Patch) 1 each N/A DAILY@2100 [facility] Stop: 06/28/25 20:59 Last Admin: 05/30/25 22:07 Dose: Not Given Multivitamins/Minerals (Cerovite Adv Formula Tab) 1 tab PO QAM [facility] Stop: 06/28/25 15:59 Last Admin: 05/31/25 08:28 Dose: 1 tab Ropinirole HCl (Ropinirole Hcl 1 Mg Tablet) 1 mg PO HS BEST Stop: 06/29/25 21:59 Last Admin: 05/30/25 21:01 Dose: 1 mg Sodium Chloride (Sodium Chloride 0.65% Na Soln 45 Ml ([place])) 1 - 2 sprays NA PRN PRN PRN Reason: Nasal Dryness/Congestion Stop: 06/28/25 09:27 Trazodone HCl (Trazodone Hcl 100 Mg Tab) 100 mg PO HS BEST Stop: 06/28/25 21:59 Last Admin: 05/30/25 21:01 Dose: 100 mg Trimethoprim/Sulfamethoxazole (Sulfamethoxazole/Trimethoprim Ds 800/160mg Tab) 1 tab PO BID BEST Stop: 06/01/25 09:01 Last Admin: 05/31/25 08:30 Dose: 1 tab Vitamin D (Cholecalciferol 10 Mcg (400 Units) Tab) 15 mcg PO QAM BEST Stop: 06/30/25 08:59 Last Admin: 05/31/25 08:28 Dose: 15 mcg Mental Health & Subst Abuse Tx Psychiatrist Name of Psychiatrist: Cee Cunha Psychiatrist's Date Of Appointment With Psychiatric Provider: 06/01/25 Time of Appointment with Psychiatrist: 1:40p Therapist Name of Therapist: [facility] Therapist's Date of Therapist Appointment: 06/21/25 Time of Therapist Appointment: 9am Therapy Appointment Comment: First appt will be in [place] location then counseling in [place] Senior Program Manager Name of Senior Program Manager: Marisa OLEA Phone Number for Senior Program Manager: Post Discharge Appointments Primary Care Physician Name Of Family Doctor/PCP: Dr. David Gilbert Provider Appointment Comment: F/u as needed Contact Information Discharge Discharge Address: [address] [place] [id number]
[2025-06-01 06:41] VITALS: BP 104/78; TEMP 97.8; O2SAT 97
[2025-06-01] MEDS: OMEGA-3 (PURIFIED FISH OIL) 1 GM CAP PO SCH (08:23)
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
[2025-06-01] MEDS ORDERED: DESTROY THIS MEDICATION ONE (11:04)
[2025-06-01 11:15] VITALS: PULSE 59
== END 2025-06-01 12:05 | disposition home or self-care (01) | DRG 885 ==
LOC: ED 05:36 → 3S 09:28 → ED 09:51